=== PATIENT | female | born 1940 | race Caucasian/White ===

== ENCOUNTER → 2020-02-19 17:29 | Outpatient (CLI) | payer MEDICARE, BC, SELFPAY ==
[2020-02-19 18:45] LABS: Basophils % 0.5 % (0.1-2.0); Eosinophils # 0.5 K/mm3 (0.0-0.4); Eosinophils % 7.8 % (0.1-12.0); Hematocrit 34.5 % (37.0-47.0); Hemoglobin 10.3 g/dL (12.2-16.2); Lymphocytes # 1.2 K/mm3 (0.7-4.5); Lymphocytes % 17.3 % (10-50); Mean Corpuscular HGB Conc 29.9 g/dL (31.8-35.4); Mean Corpuscular Hemoglobin 30.5 pg (27.0-31.2); Mean Corpuscular Volume 101.9 fl (81-99); Mean Platelet Volume 9.5 fl (7.4-10.4); Monocytes # 0.8 K/mm3 (0.1-1.0); Monocytes % 11.2 % (1.7-9.3); Neutrophils # 4.3 K/mm3 (1.8-7.8); Neutrophils % 63.2 % (37.0-80.0); Platelet Count 284 K/mm3 (142-424); Red Blood Count 3.39 M/mm3 (4.20-5.40); White Blood Count 6.9 K/mm3 (4.8-10.8)
[2020-02-19 18:49] LABS: Alanine Aminotransferase 12 U/L (12-78); Albumin Level 4.2 g/dl (3.5-5.0); Albumin/Globulin Ratio 1.3 (1.1-1.8); Alkaline Phosphatase 93 U/L (38-126); Anion Gap 17.5 mEq/L (5-15); Aspartate Amino Transferase 27 U/L (14-36); Bilirubin,Total 0.2 mg/dl (0.2-1.3); Blood Urea Nitrogen 42 mg/dl (7-17); Calcium 10.1 mg/dl (8.4-10.2); Carbon Dioxide 21 mmol/L (22.0-30.0); Chloride 113 mmol/L (98-107); Chol/HDL Ratio 4.7 (1-3.5); Cholesterol 235 mg/dl (140-200); Estimated Glomerular Filt Rate 27 ml/min (>60); GFR (African American) 33 ML/MIN (>60); Globulin 3.2 g/dL (1.3-3.2); Glucose 96 mg/dl (74-100); HDL Cholesterol 50 mg/dl (40-60); Potassium 5.5 mmoL/L (3.5-5.1); Sodium 146 mmol/L (136-145); Total Protein,Serum 7.4 g/dl (6.3-8.2); Triglycerides 198 mg/dl (30-150); VLDL Cholesterol 40 mg/dL (0-40)
[2020-02-19 19:00] LABS: Direct LDL Cholesterol 128.67 mg/dL (100-129)
[2020-02-19 19:19] LABS: Thyroid Stimulating Hormone 4.57 uIU/mL (0.465-4.68)
[2020-02-21 09:13] LABS: Iron 60 ug/dL (37-170)
[2020-02-21 09:23] LABS: Total Iron Binding Capacity 317 ug/dL (265-497)
[2020-02-21 09:48] LABS: Ferritin 174 ng/ml (11.1-264)
[2020-03-01 17:03] LABS: Free Valproic Acid (Depakote) 15.6
== END ==
PROVIDERS: Visit Provider Physician Assistant
DX: E03.9 Hypothyroidism, unspecified (principal); F31.9 Bipolar disorder, unspecified; I10 Essential (primary) hypertension; W19.XXXA Unspecified fall, initial encounter; D64.9 Anemia, unspecified
CPT/HCPCS: 80053; 80061; 80165; 82728; 83540; 83550; 84443; 85025

== ENCOUNTER 2020-02-27 18:07 | Emergency (ER) | payer MEDICARE, BC, SELFPAY ==
[2020-02-27 18:08] VITALS: BP 116/64; PULSE 74; RESP 16; TEMP 36.6; O2SAT 98; BMI 22.6
--- NOTE | 2020-02-27 18:59 | XR_ITS ---
PROCEDURE: XR CHEST PORTABLE CLINICAL HISTORY: dyspnea COMPARISON: CR CXR CHEST(2 VIEWS-NOT PORTABLE) from 06/15/2012 FINDINGS: The cardiomediastinal silhouette and pulmonary vascularity are within normal limits. The lungs are clear without infiltrates, suspicious nodules, or pleural effusions. No acute bony abnormalities. IMPRESSION: No acute findings. Dictated by: Dimas Goldman MD 02/28/2020 05:17 Dimas Goldman MD in [place] 02/28/2020 05:17
--- NOTE | 2020-02-27 19:04 | HMH.EDGENADL ---
ED Disposition Clinical Impression: Urinary tract infection Qualifiers: Urinary tract infection type: acute cystitis Hematuria presence: without hematuria Qualified Code(s): N30.00 - Acute cystitis without hematuria Disposition: Home, Self-Care Condition on Discharge: Good Prescriptions: Cefdinir [Omnicef 300mg Capsule] 300 mg PO BID #20 cap Prescription Printed Referrals: PCP,No [Primary Care Provider] - - Critical Care Critical Care Time: No Attestation: On 02/27/20, the high probability of a clinically significant, sudden or life threatening deterioration of the following system(s) required my full and direct attention, intervention and personal management. The time I documented below is in addition to time spent performing reported procedures but includes the following listed in this critical care notation. Medical Decision Making - Casa Inquiry Pt receiving controlled substance: No Vital Signs: 02/27/20 18:08 Temperature 98 F Temperature Source Oral Pulse Rate [Radial] 74 Respiratory Rate 16 Blood Pressure [Right Arm] 116/64 Blood Pressure Mean [Right Arm] 81 Blood Pressure Position [Right Arm] Sitting 02 Sat by Pulse Oximetry 98 Oxygen Delivery Method Room Air - Lab Data Lab Results 02/27/20 19:28: Urine Color Yellow, Urine Appearance Clear, Urine pH 6.0, Ur Specific [place] 1.010, Urine Protein 1+, Urine Glucose (UA) Negative, Urine Ketones Negative, Urine Blood Trace-l, Urine Nitrate Positive, Urine Bilirubin Negative, Urine Urobilinogen 0.2, Ur Leukocyte Esterase 2+ A Orders (Tests/Meds): ORDERS Category Date Time Status Chest XR -- portable [XR chest portable] Stat Exams 02/27/20 18:59 Taken Urinalysis and Microscopic Stat Lab 02/27/20 19:28 Results Urine Culture Stat Micro 02/27/20 19:28 Received Medical Decision Narrative: 71-year-old female who was brought in for medical evaluation by EMS at the request of a POA who was concerned about shortness of breath. Patient on arrival seemed medically stable well-appearing and nontoxic with normal vital signs and not requiring oxygen. Due to POA's concern regarding reported shortness of breath chest x-ray will be ordered and due to anxiety and confusion regarding credit card will evaluate for urinary tract infection with a UA. General Adult HPI - General Chief complaint: Shortness of Breath/Dyspnea Stated complaint: soa Time Seen by Provider: 02/27/20 19:20 Mode of Arrival: EMS Source of Information: Patient, EMS Limitations: No Limitations Description of Symptoms (Recalled from ER Triage Doc. by RN): TO ED PER [facility] REPORT THAT [facility] CALLED BY PT'S POA FOR SOB. POA WAS TALKING TO PT ON THE PHONE AND THOUGHT SHE SOUNDED SOB. PT DENIES ANY C/O AT PRESENT. - History of Present Illness HPI narrative: 79-year-old female brought in by EMS who report that she was at home and they were called for a welfare check by her POA for suspected shortness of breath. On arrival she stated that she was feeling well and had no complaints. She did endorse some anxiety from earlier today when she was trying to find her credit card that she thought she had lost. She states she is not feeling short of breath has no chest pain and feels well with no nausea vomiting, fevers, chills, body aches. She has been tolerating oral intake without issue and staying hydrated. States that she is having no difficulty urinating or having dysuria. Denies fall of any kind. Onset (ago): unknown - Related Data Home Medications Medication Instructions Recorded Confirmed divalproex 500 mg tablet,extended 500 mg PO DAILY 02/24/20 02/27/20 release 24 hr hydrocodone 5 mg-acetaminophen 325 1 tab PO Q4-6H PRN 02/24/20 mg tablet levothyroxine 75 mcg tablet 75 mcg PO DAILY 02/24/20 02/27/20 nebivolol 5 mg tablet 5 mg PO DAILY 02/24/20 02/27/20 nifedipine 30 mg tablet,extended 30 mg PO DAILY 02/24/20 02/27/20 release ziprasidone HCl 40 mg capsule 40 m
[2020-02-27 19:29] LABS: Microscopic, Urine URINE MICROSCOPIC (MICROSCOPIC)
[2020-02-27 19:40] LABS: Appearance,Urine CLEAR (Clear); Bilirubin,Urine Negative (Negative); Blood, Urine TRACE-L (Negative); Color,Urine YELLOW (Yellow); Glucose,Urine (UA) Negative (Negative); Ketones,Urine Negative (Negative); Leukocyte Esterase,Urine 2+ (Negative); Nitrate,Urine POSITIVE (Negative); Protein,Urine 1+ (Negative); Urobilinogen,Urine 0.2 EU/dl (0.2)
[2020-02-27 20:15] LABS: Amorphous Sediment,Urine 2+ /lpf; Bacteria,Urine 4+ /lpf
[2020-02-27 20:23] VITALS: BP 131/80; PULSE 74; RESP 20; TEMP 36.7; O2SAT 96
== END 2020-02-27 20:42 | disposition home or self-care (01) ==
PROVIDERS: Emergency Provider Student in an Organized Health Care Education/Training Program
DX: N30.00 Acute cystitis without hematuria (principal); R06.02 Shortness of breath; Z87.891 Personal history of nicotine dependence
CPT/HCPCS: 36415; 71045; 80048; 81001; 87086; 87088; 87186; 99282

== ENCOUNTER → 2020-02-27 20:46 | Outpatient (CLI) | payer MEDICARE, BC, SELFPAY ==
[2020-02-27 21:05] LABS: Chloride 107 mmol/L (98-107); Potassium 4.7 mmoL/L (3.5-5.1); Sodium 138 mmol/L (136-145)
[2020-02-27 21:08] LABS: Anion Gap 14.7 mEq/L (5-15); Blood Urea Nitrogen 31 mg/dl (7-17); Calcium 9.8 mg/dl (8.4-10.2); Carbon Dioxide 21 mmol/L (22.0-30.0); Estimated Glomerular Filt Rate 24 ml/min (>60); GFR (African American) 29 ML/MIN (>60); Glucose 108 mg/dl (74-100)
== END ==
PROVIDERS: Visit Provider Physician Assistant
DX: E87.5 Hyperkalemia (principal)
CPT/HCPCS: 36415; 80048

== ENCOUNTER → 2020-08-24 14:19 | Outpatient (CLI) | payer MEDICARE, BC, SELFPAY ==
[2020-08-24 14:32] LABS: Basophils # 0.1 K/mm3 (0-0.2); Basophils % 0.9 % (0.1-2.0); Eosinophils # 0.1 K/mm3 (0.0-0.4); Eosinophils % 1.8 % (0.1-12.0); Hematocrit 38.3 % (37.0-47.0); Hemoglobin 12.6 g/dL (12.2-16.2); Lymphocytes # 1.3 K/mm3 (0.7-4.5); Lymphocytes % 20.2 % (10-50); Mean Corpuscular HGB Conc 32.8 g/dL (31.8-35.4); Mean Corpuscular Hemoglobin 31.8 pg (27.0-31.2); Mean Corpuscular Volume 96.9 fl (81-99); Mean Platelet Volume 9.8 fl (7.4-10.4); Monocytes # 0.8 K/mm3 (0.1-1.0); Monocytes % 11.8 % (1.7-9.3); Neutrophils # 4.3 K/mm3 (1.8-7.8); Neutrophils % 65.4 % (37.0-80.0); Platelet Count 243 K/mm3 (142-424); Red Blood Count 3.95 M/mm3 (4.20-5.40); White Blood Count 6.5 K/mm3 (4.8-10.8)
[2020-08-24 14:41] LABS: Alanine Aminotransferase 12 U/L (12-78); Albumin Level 4.1 g/dl (3.5-5.0); Albumin/Globulin Ratio 1.5 (1.1-1.8); Alkaline Phosphatase 77 U/L (38-126); Anion Gap 14.9 mEq/L (5-15); Aspartate Amino Transferase 21 U/L (14-36); Bilirubin,Total 0.3 mg/dl (0.2-1.3); Blood Urea Nitrogen 21 mg/dl (7-17); Calcium 9.8 mg/dl (8.4-10.2); Carbon Dioxide 21 mmol/L (22.0-30.0); Chloride 114 mmol/L (98-107); Cholesterol 216 mg/dl (140-200); Estimated Glomerular Filt Rate 31 ml/min (>60); GFR (African American) 38 ML/MIN (>60); Globulin 2.8 g/dL (1.3-3.2); Glucose 107 mg/dl (74-100); HDL Cholesterol 54 mg/dl (40-60); Potassium 4.9 mmoL/L (3.5-5.1); Sodium 145 mmol/L (136-145); Total Protein,Serum 6.9 g/dl (6.3-8.2); Triglycerides 143 mg/dl (30-150); VLDL Cholesterol 29 mg/dL (0-40)
[2020-08-24 14:52] LABS: Direct LDL Cholesterol 114.84 mg/dL (100-129)
[2020-08-24 14:58] LABS: Free T4 (Free Thyroxine) 1.53 ng/dl (0.78-2.19)
[2020-08-24 14:59] LABS: 25-OH Vitamin D, Total 43.5 ng/mL (30-100)
[2020-08-24 15:12] LABS: Thyroid Stimulating Hormone 0.33 uIU/mL (0.465-4.68)
[2020-09-12 11:33] LABS: Free Valproic Acid (Depakote) 5.5
== END ==
PROVIDERS: Visit Provider Physician Assistant
DX: E03.9 Hypothyroidism, unspecified (principal); E55.9 Vitamin D deficiency, unspecified; F31.9 Bipolar disorder, unspecified; G24.01 Drug induced subacute dyskinesia; I10 Essential (primary) hypertension
CPT/HCPCS: 80053; 80061; 80165; 82306; 84439; 84443; 85025

== ENCOUNTER 2020-12-12 10:43 | Inpatient (IN) | payer MEDICARE, SELFPAY ==
[2020-12-12] VITALS (13 sets, daily range): BP systolic 146–189; BP diastolic 68–88; PULSE 48–55; RESP 18–28; TEMP 36.6–37.2; O2SAT 92–98; BMI 20.9; BMI 19.4
--- NOTE | 2020-12-12 10:45 | ECG_ITS ---
APPROVED REPORT Exam: Resting ECG HR:55 bpm ECG Measurements Heart Rate 55 AXES WY 172 P 36 QRSd 134 QRS -8 QT 554 T -79 QTc 529 Conclusion Sinus bradycardia Right bundle branch block Marked T wave abnormality, consider inferolateral ischemia Abnormal ECG Electronically signed by : Sean Retana MD 12/13/2020 17:08:56
--- NOTE | 2020-12-12 11:01 | XR_ITS ---
PROCEDURE INFORMATION: Exam: XR Chest Exam date and time: 12/12/2020 11:01 AM Age: 80 years old Clinical indication: Shortness of breath and other: Weakness TECHNIQUE: Imaging protocol: XR of the chest. Views: 1 view. COMPARISON: CR XR CHEST PORTABLE 02/27/2020 7:11 PM FINDINGS: Lungs: Emphysema; Patchy airspace disease in the left mid lung and to a lesser degree the right middle lobe versus lung base. Pleural spaces: Unremarkable. No pleural effusion. No pneumothorax. Heart/Mediastinum: Borderline cardiomegaly Bones/joints: Unremarkable. IMPRESSION: Patchy airspace disease in the left mid lung and to a lesser degree the right middle lobe versus lung base. Covid within the differential diagnosis. Consider CT.
[2020-12-12 11:06] LABS: Influenza A, PCR Not Detected (NotDetected); Influenza B, PCR Not Detected (NotDetected)
[2020-12-12 11:27] LABS: Basophils % 0.8 % (0.1-2.0); Hematocrit 37.1 % (37.0-47.0); Hemoglobin 12.1 g/dL (12.2-16.2); Lymphocytes # 0.6 K/mm3 (0.7-4.5); Lymphocytes % 12.4 % (10-50); Mean Corpuscular HGB Conc 32.5 g/dL (31.8-35.4); Mean Corpuscular Volume 98.7 fl (81-99); Mean Platelet Volume 9.2 fl (7.4-10.4); Monocytes # 0.4 K/mm3 (0.1-1.0); Monocytes % 7.9 % (1.7-9.3); Neutrophils # 4.1 K/mm3 (1.8-7.8); Neutrophils % 78.8 % (37.0-80.0); Platelet Count 168 K/mm3 (142-424); Red Blood Count 3.76 M/mm3 (4.20-5.40); Red Cell Distribution Width 13.1 % (11.5-17.5); White Blood Count 5.2 K/mm3 (4.8-10.8)
--- NOTE | 2020-12-12 11:37 | HMH.EDWEAK ---
ED Disposition Clinical Impression: COVID-19 with pulmonary comorbidity, ADAMA (acute kidney injury), Abnormal electrocardiogram [ECG] [EKG] Hypothyroidism Qualifiers: Hypothyroidism type: acquired Qualified Code(s): E03.9 - Hypothyroidism, unspecified Disposition: Admitted As Inpatient Condition on Discharge: Fair - Critical Care Critical Care Time: No Attestation: On 12/12/20, the high probability of a clinically significant, sudden or life threatening deterioration of the following system(s) required my full and direct attention, intervention and personal management. The time I documented below is in addition to time spent performing reported procedures but includes the following listed in this critical care notation. Medical Decision Making - Medical Records Medical records reviewed: Yes: I reviewed the patient's medical records. - Casa Inquiry Pt receiving controlled substance: No Vital Signs: 12/12/20 10:44 12/12/20 11:30 Temperature 99 F Temperature Source Oral Pulse Rate 55 L Pulse Rate [Radial] 55 L Respiratory Rate 20 24 Blood Pressure 189/88 H Blood Pressure [Right Arm] 185/74 H Blood Pressure Mean 154 Blood Pressure Mean [Right Arm] 111 Blood Pressure Position [Right Arm] Sitting 02 Sat by Pulse Oximetry 96 98 Oxygen Delivery Method Nasal Cannula Nasal Cannula Oxygen Flow Rate (LPM) 3 3 - Lab Data Lab results reviewed: Yes: I reviewed the patient's lab results. Lab Results 12/12/20 10:50: SARS-CoV-2 (PCR) Detected A, Influenza A Untype (PCR) Not detected, Influenza Type B (PCR) Not detected 12/12/20 11:18: WBC 5.2, RBC 3.76 L, Hgb 12.1 L, Hct 37.1, MCV 98.7, MCH 32.0 H, MCHC 32.5, RDW 13.1, Plt Count 168, MPV 9.2, Neut % (Auto) 78.8, Lymph % (Auto) 12.4, [place] % (Auto) 7.9, Eos % (Auto) 0.0 L, Baso % (Auto) 0.8, Neut # (Auto) 4.1, Lymph # (Auto) 0.6 L, [place] # (Auto) 0.4, Eos # (Auto) 0.0, Baso # (Auto) 0.0 12/12/20 11:18: Sodium Cancelled, Potassium Cancelled, Chloride Cancelled, Carbon Dioxide Cancelled, Anion Gap Cancelled, BUN Cancelled, Creatinine Cancelled, Estimated Creat Clear Cancelled, Estimated GFR Cancelled, Est GFR ( Amer) Cancelled, Glucose Cancelled, Calcium Cancelled, Troponin I < 0.01 Result diagrams: 12/12/20 11:18 12/12/20 11:18 Orders (Tests/Meds): ED MEDICATIONS Generic Name Dose Route Start Last Admin Trade Name Freq PRN Reason Stop Dose Admin Acetaminophen 650 mg 12/12/20 12:15 Acetaminophen 325mg Tab PO 01/11/21 12:14 Q6HP PRN Mild pain,fever,headache Ascorbic Acid 500 mg 12/12/20 13:00 Ascorbic Acid 500mg Tab PO 01/11/21 12:59 QID PETE Dexamethasone Sodium Phosphate 6 mg 12/12/20 12:30 Dexamethasone 4mg/Ml 1ml Vial IV 01/11/21 12:29 DAILY PETE Enoxaparin Sodium 60 mg 12/12/20 12:30 Enoxaparin 60mg/0.6ml Syringe SQ 01/11/21 12:29 DAILY PETE Ergocalciferol 50,000 unit 12/12/20 12:15 Ergocalciferol 50,000 Units (1.25mg) Capsule PO 01/11/21 12:14 WEEKLY PETE Famotidine 20 mg 12/12/20 21:00 Famotidine 20mg Tablet PO 01/11/21 20:59 BID PETE Sodium Chloride 1,000 mls @ 100 mls/hr 12/12/20 12:15 Sod Chlor 0.9% 1000ml Bag IV 01/11/21 12:14 .Q10H PETE Zinc Sulfate 220 mg 12/12/20 12:30 Zinc Sulfate 220mg Capsule PO 01/11/21 12:29 DAILY PETE Discontinued Medications Generic Name Dose Route Start Last Admin Trade Name Freq PRN Reason Stop Dose Admin Dexamethasone Sodium Phosphate 10 mg 12/12/20 12:28 Dexamethasone 4mg/Ml 1ml Vial IV 12/12/20 12:29 ONCE ONE ORDERS Category Date Time Status Comprehensive Metabolic Panel Routine Lab 12/12/20 11:18 Received Troponin I Q3H Lab 12/12/20 14:15 Ordered Troponin I Q3H Lab 12/12/20 17:15 Ordered Sputum Culture & Gram Stain Stat Micro 12/12/20 12:16 Ordered - Radiology Data #1 Image(s): Chest Image Reviewed: Yes I have reviewed radiologist's interpretation Preliminary Fi
[2020-12-12 11:45] LABS: Coronavirus 19, PCR Detected (NotDetected)
[2020-12-12 11:51] LABS: Troponin I < 0.01 ng/ml (0.00-0.034)
[2020-12-12 13:00] LABS: Chloride 110 mmol/L (98-107)
[2020-12-12 13:01] LABS: Potassium 4.2 mmoL/L (3.5-5.1); Sodium 146 mmol/L (136-145)
[2020-12-12 13:03] LABS: Alanine Aminotransferase 17 U/L (12-78); Alkaline Phosphatase 68 U/L (38-126); Anion Gap 21.2 mEq/L (5-15); Aspartate Amino Transferase 45 U/L (14-36); Bilirubin,Total 0.2 mg/dl (0.2-1.3); Blood Urea Nitrogen 41 mg/dl (7-17); Carbon Dioxide 19 mmol/L (22.0-30.0); Creatinine Clearance Estimated 19 mL/min (50-200); Estimated Glomerular Filt Rate 26 ml/min (>60); GFR (African American) 31 ML/MIN (>60)
[2020-12-12 13:04] LABS: Albumin Level 3.7 g/dl (3.5-5.0); Albumin/Globulin Ratio 1.2 (1.1-1.8); Calcium 8.9 mg/dl (8.4-10.2); Globulin 3.2 g/dL (1.3-3.2); Glucose 84 mg/dl (74-100); Total Protein,Serum 6.9 g/dl (6.3-8.2)
--- NOTE | 2020-12-12 13:23 | HMH.HP ---
*Admission Date: 12/12/20 *Chief complaint: sob *History of present illness: this patient presented to the ed by ems with cough and progressive weakness with dec po intake and dec adl/iadl-pt with positive covis with abn cxr and required o2 and had sig abn ekg - pt was discussed with card and admitted for eval and treatment [facility] History I have reviewed the patient's past medical history: Yes Medical History: Reports:: Hyperlipidemia, Hypertension *Have you ever received a pneumonia vaccine?: Yes *Have you received a flu vaccine this season?: Yes Other Medical History: Reports: Arthritis, Thyroid Disease Other Surgeries: Yes: No Previous Surgery, Hysterectomy-Partial, Other - *Social History Smoking Status: Former smoker Alcohol Intake: never Substance Use Type: denies use *Occupational Status:: retired Housing: house *Travel in the last 8 weeks: None Family Hx:: Cancer, Stroke Review of Systems - Review of Systems Review of systems:: pertinent systems reviewed and negative unless documented below - Constitutional Reports weakness, Denies fever(s) - Eyes Denies change in vision - ENT Denies headache(s), Denies sore throat - *Cardiovascular Reports shortness of breath, Denies chest pain - *Respiratory Reports cough - *Gastrointestinal Denies abdominal pain - *Genitourinary Denies blood in urine - *Musculoskeletal Denies joint pain - Integumentary/Breasts Denies rash - *Neurologic Reports weakness, Denies localized weakness, Denies seizure-like activity - Psychiatric Denies confusion Meds Home Medications Medication Instructions Recorded Confirmed Type divalproex 500 mg tablet,extended 500 mg PO DAILY #90 tab 12/01/20 12/12/20 Rx release 24 hr nifedipine 30 mg tablet,extended 30 mg PO DAILY #90 tab 12/01/20 12/12/20 Rx release pravastatin 40 mg tablet 40 mg PO HS #90 tab 12/01/20 12/12/20 Rx ziprasidone HCl 40 mg capsule 40 mg PO DAILY #90 cap 12/01/20 12/12/20 Rx Levothyroxine Sodium [Synthroid 75 mcg PO AMLAB 12/12/20 12/13/20 History 75mcg (0.075mg) tablet] Nebivolol HCl [Bystolic] 10 mg PO DAILY 12/12/20 12/12/20 History Allergies Allergy/AdvReac Type Severity Reaction Status Date / Time IODINE Allergy Unknown Uncoded 12/01/20 09:36 Exam Vital signs and Labs for Last 24 Hours: Temp Pulse Resp BP Pulse Ox 99 F 55 L 24 189/88 H 98 12/12/20 10:44 12/12/20 11:30 12/12/20 11:30 12/12/20 11:30 12/12/20 11:30 Laboratory Results - last 24 hr 12/12/20 10:50: SARS-CoV-2 (PCR) Detected A, Influenza A Untype (PCR) Not detected, Influenza Type B (PCR) Not detected 12/12/20 11:18: WBC 5.2, RBC 3.76 L, Hgb 12.1 L, Hct 37.1, MCV 98.7, MCH 32.0 H, MCHC 32.5, RDW 13.1, Plt Count 168, MPV 9.2, Neut % (Auto) 78.8, Lymph % (Auto) 12.4, [place] % (Auto) 7.9, Eos % (Auto) 0.0 L, Baso % (Auto) 0.8, Neut # (Auto) 4.1, Lymph # (Auto) 0.6 L, [place] # (Auto) 0.4, Eos # (Auto) 0.0, Baso # (Auto) 0.0 12/12/20 11:18: Sodium Cancelled, Potassium Cancelled, Chloride Cancelled, Carbon Dioxide Cancelled, Anion Gap Cancelled, BUN Cancelled, Creatinine Cancelled, Estimated Creat Clear Cancelled, Estimated GFR Cancelled, Est GFR ( Amer) Cancelled, Glucose Cancelled, Calcium Cancelled, Troponin I < 0.01 12/12/20 11:18: Sodium 146 H, Potassium 4.2, Chloride 110 H, Carbon Dioxide 19 L, Anion Gap 21.2 H, BUN 41 H, Creatinine 1.90 H, Estimated Creat Clear 19, Estimated GFR 26 L, Est GFR ( Amer) 31 L, Glucose 84, Calcium 8.9, Total Bilirubin 0.2, AST 45 H, ALT 17, Alkaline Phosphatase 68, Total Protein 6.9, Albumin 3.7, Globulin 3.2, Albumin/Globulin Ratio 1.2 I & O for Last 24 hours: Intake & Output 12/10/20 12/11/20 12/12/20 12/13/20 11:59 11:59 11:59 11:59 Weight 111 lb - Constitutional no acute distress, thin - *Routine HEENT Exam Head: Present: normocephalic Eye: Present: EOMI, PERRL ENT: Present: mucous membranes dry - *Routine Neck Exam Present: supple
[2020-12-12 14:04] LABS: T4 (Thyroxine) 10.8 ug/dl (5.53-11.0)
[2020-12-12 14:18] LABS: Thyroid Stimulating Hormone 0.66 uIU/mL (0.465-4.68)
--- NOTE | 2020-12-12 14:27 | PC.NURSE ---
REPORT CALLED TO FLOOR
--- NOTE | 2020-12-12 15:06 | HMH.PHAVTE ---
[facility] Pharmacy VTE Monitoring - Patient Demographics Admission date: 12/12/20 Report Date: 12/12/20 Time: 15:07 Allergies/Adverse Reactions: Patient Allergies IODINE Allergy (Unknown, Uncoded 12/01/20 09:36) Height: 1.55 m Weight: 50.349 kg Patient Problems: Current Active Problems COVID-19 with pulmonary comorbidity (Acute) ADAMA (acute kidney injury) (Acute) Abnormal electrocardiogram [ECG] [EKG] (Acute) Hypothyroidism (Chronic) - VTE Risk Labs: VTE Related Lab Results Hgb 12.1 g/dL (12.2-16.2) L 12/12/20 11:18 Hct 37.1 % (37.0-47.0) 12/12/20 11:18 Plt Count 168 K/mm3 (142-424) 12/12/20 11:18 BUN 41 mg/dl (7-17) H 12/12/20 11:18 BUN Cancelled 12/12/20 11:18 Creatinine 1.90 mg/dl (0.52-1.04) H 12/12/20 11:18 Creatinine Cancelled 12/12/20 11:18 Estimated Creat Clear 19 mL/min (50-200) 12/12/20 11:18 Estimated Creat Clear Cancelled 12/12/20 11:18 Was VTE Risk Assessment Performed: No Clinical Trial Participant: No - Prophylaxis VTE Prophylaxis Ordered?: Yes Types of VTE Prophylaxis: TEDS Knee High, Pharmacological Pharmacologic Type: Enoxaparin
[2020-12-12 16:00] LABS: Troponin I < 0.01 ng/ml (0.00-0.034)
[2020-12-12 18:28] LABS: Troponin I 0.02 ng/ml (0.00-0.034)
[2020-12-13] VITALS: BP 148/62; PULSE 52; RESP 18; TEMP 36.6; O2SAT 92
--- NOTE | 2020-12-13 03:18 | PC.NURSE ---
Patient is A&Ox4. She has had no complaints expressed this shift. Patient has maintained oxygen saturation maintaining 90-94% on 2LNC. Patient's lung sounds are clear but diminished. She has rested comfortably. VSS, call light within reach, will continue to monitor.
[2020-12-13 04:00] VITALS: BP 130/66; PULSE 72; RESP 19; TEMP 36.6; O2SAT 96
[2020-12-13 05:00] VITALS: BMI 19.4
[2020-12-13 06:57] LABS: Chloride 113 mmol/L (98-107); Potassium 3.9 mmoL/L (3.5-5.1); Sodium 142 mmol/L (136-145)
[2020-12-13 07:00] LABS: Anion Gap 15.9 mEq/L (5-15); Blood Urea Nitrogen 47 mg/dl (7-17); Calcium 8.2 mg/dl (8.4-10.2); Carbon Dioxide 17 mmol/L (22.0-30.0); Creatinine Clearance Estimated 21 mL/min (50-200); Estimated Glomerular Filt Rate 31 ml/min (>60); GFR (African American) 38 ML/MIN (>60); Glucose 141 mg/dl (74-100)
[2020-12-13 07:03] LABS: Lymphocytes # 0.7 K/mm3 (0.7-4.5); Mean Corpuscular HGB Conc 32.3 g/dL (31.8-35.4); Monocytes # 0.4 K/mm3 (0.1-1.0)
[2020-12-13 07:13] LABS: Basophils % 0.4 % (0.1-2.0); Hematocrit 33.9 % (37.0-47.0); Lymphocytes % 13.6 % (10-50); Mean Corpuscular Volume 99.1 fl (81-99); Mean Platelet Volume 9.7 fl (7.4-10.4); Monocytes % 7.1 % (1.7-9.3); Platelet Count 173 K/mm3 (142-424); Red Blood Count 3.42 M/mm3 (4.20-5.40); Red Cell Distribution Width 12.9 % (11.5-17.5)
[2020-12-13 08:00] VITALS: BP 130/70; PULSE 50; RESP 20; TEMP 36.5; O2SAT 93; O2SAT 94
[2020-12-13 12:00] VITALS: BP 147/78; PULSE 55; RESP 22; TEMP 36.7; O2SAT 95
--- NOTE | 2020-12-13 12:54 | HMH.PHAINT ---
MEDICATION RECONCILIATION COMPLETE USING LIST FROM MOST RECENT MD OFFICE VISIT.
--- NOTE | 2020-12-13 13:22 | P.PN_ITS ---
Internal Medicine - PN: Subj *Date: 12/14/20 *Time: 00:46 Interval history: doing better still on o2 - no chest pain Exam Vital signs and Labs for Last 24 Hours: Temp Pulse Resp BP Pulse Ox 98.0 F 55 L 22 147/78 H 95 12/13/20 12:00 12/13/20 12:00 12/13/20 12:00 12/13/20 12:00 12/13/20 12:00 Laboratory Results - last 24 hr 12/12/20 11:18: TSH 0.66, Thyroxine (T4) 10.8 12/12/20 14:30: Troponin I < 0.01 12/12/20 17:35: Troponin I 0.02 12/13/20 06:17: WBC 5.0, RBC 3.42 L, Hgb 11.0 L, Hct 33.9 L, MCV 99.1 H, MCH 32.0 H, MCHC 32.3, RDW 12.9, Plt Count 173, MPV 9.7, Neut % (Auto) 79.0, Lymph % (Auto) 13.6, [place] % (Auto) 7.1, Eos % (Auto) 0.0 L, Baso % (Auto) 0.4, Neut # (Auto) 4.0, Lymph # (Auto) 0.7, [place] # (Auto) 0.4, Eos # (Auto) 0.0, Baso # (Auto) 0.0 12/13/20 06:17: Sodium 142, Potassium 3.9, Chloride 113 H, Carbon Dioxide 17 L, Anion Gap 15.9 H, BUN 47 H, Creatinine 1.60 H, Estimated Creat Clear 21, Estimated GFR 31 L, Est GFR ( Amer) 38 L D, Glucose 141 H D, Calcium 8.2 L, Magnesium 2.0 I & O for Last 24 hours: Intake & Output 12/11/20 12/12/20 12/13/20 12/14/20 11:59 11:59 11:59 11:59 Intake Total 656 / 656 Output Total Balance 655 / 655 Weight 111 lb 103 lb 1 oz - Constitutional no acute distress - *Routine HEENT Exam Head: Present: normocephalic Eye: Present: EOMI, PERRL ENT: Present: mucous membranes dry - *Routine Neck Exam Present: supple - *Routine Respiratory Exam Present: CTA bilaterally - *Routine Cardiovascular Exam Present: RRR, murmur - *Routine Abdominal Exam Present: soft - *Routine Extremities Exam Absent: calf tenderness - *Routine Skin Exam Present: intact - *Routine Neurological Exam Present: alert - Routine Psychiatric Exam Present: normal affect
[2020-12-13 15:50] VITALS: BP 158/77; PULSE 53; RESP 22; TEMP 36.8; O2SAT 94
--- NOTE | 2020-12-13 18:56 | PC.NURSE ---
SHE IS AOX4, 2LNC FOR O2 SUPPORT. VSS
[2020-12-13 20:00] VITALS: BP 166/86; PULSE 55; RESP 18; TEMP 36.6; O2SAT 94
[2020-12-14] VITALS: BP 160/76; PULSE 54; RESP 18; TEMP 36.7; O2SAT 93
[2020-12-14 04:00] VITALS: BP 150/64; PULSE 79; RESP 18; TEMP 36.6; O2SAT 96
--- NOTE | 2020-12-14 04:19 | PC.NURSE ---
Patient is A&Ox4. Patient requires 2LNC. Patient respiratory status has not changed. She has remained afebrile this shift. She requires a standby assist to the bedside commode. No acute changes this shift. VSS, call light within reach, will continue to monitor.
[2020-12-14 05:00] VITALS: BMI 19.4
[2020-12-14 08:00] VITALS: BP 157/79; PULSE 53; RESP 18; TEMP 36.9; O2SAT 93; O2SAT 94
--- NOTE | 2020-12-14 08:00 | CA_ITS ---
APPROVED REPORT EXAM: Comprehensive 2D, Doppler, and color-flow Echocardiogram Radiagraph Operator: Brenna Liu CRT Ht: 5 ft 1 in Wt: 103lbs BSA: 1.42 BP: 138/59 mmHg Indications: Hyperlipidemia, Hypertension/HDD, covid 2D Dimensions LVOT 1.82 cm (M/F) 1.5-2.5 LA Volume 26.90 mL LA Volume Index 18.90 mL/m2 (M/F) 16-34 M-Mode Dimensions RVDd 1.95 cm (0.9-2.6) LA Diam 3.46 cm (1.9-4.0) LVDd 4.89 cm (3.5-5.7) Ao Diam 3.98 cm (2.0-3.7) LVDs 2.68 cm (3.5-5.7) IVSd 1.69 cm (0.6-1.1) PWd 0.67 cm (0.6-1.1) EF (Teich) 76.40% FS 45.20% EDV (Teich) 112.30 mL TAPSE 1.94 (<1.7) ESV (Teich) 26.50 mL LV Diastology E Decel Time 450.00 (160-240 msec) E/A Ratio 0.69 MED E' 6.80 (< 7 cm/sec) MED A' 9.30 cm/s E'/MED E' Ratio 9.97 (>14) LAT E' 6.00 (<10 cm/sec) LAT A' 12.30 cm/s E/LAT E' Ratio 11.30 (>14) Aortic Valve AI PHT 813.00 ms AO Peak GR. 8.00 mmHg Mitral Valve MV A Velocity 98.00 (40-130 cm/s) E/A Ratio 0.69 MV Decel. Time 450.00 (160-240 ms) Pulmonary Valve PV Peak Velocity 100.00 (50-150 cm/s) Tricuspid Valve TR P. Velocity 220.00 cm/s RAP Estimate 10.00 mmHg RVSP 29.40 mmHg Left Ventricle Left atrium is mildly enlarged, left ventricle is normal size, mild concentric left ventricular hypertrophy, visually estimated ejection fraction 55% with no regional wall motion abnormality, grade 1 diastolic dysfunction seen without tissue Doppler evidence of raise left atrial pressure. Right Ventricle Right atrium and right ventricle are normal size and contractility. Aortic Valve Aortic valve is thickened and calcified without aortic stenosis, there is mild aortic insufficiency. Mitral Valve Mitral valve is grossly normal, there is mild mitral regurgitation. Tricuspid Valve Tricuspid grossly normal, there is trace tricuspid regurgitation, tricuspid regurgitation jet velocity is inadequate for calculation of the right ventricular systolic pressure. Pulmonic Valve Pulmonic valve is poorly visualized. Great Vessels Aortic root is normal size. Pericardium No significant pericardial effusion noted. Conclusion 1. Mildly enlarged left atrium, normal left ventricular size, mild concentric left ventricular hypertrophy, visually estimated ejection fraction 55% with no regional wall motion abnormality, grade 1 diastolic dysfunction seen without tissue Doppler evidence of raise left atrial pressure. 2. Mild aortic, mild mitral and tricuspid regurgitation. 3. No significant pericardial effusion noted. Electronically signed by : Evaristo Sharma MD 12/15/2020 07:22:35
[2020-12-14 09:52] VITALS: BMI 19.5
--- NOTE | 2020-12-14 10:10 | PC.NURSE ---
Pt RA sats 94% and pt tolerated well. nc removed. Pt denies s/s respiratory distress.
--- NOTE | 2020-12-14 10:57 | HMH.PULMCON ---
*Admission Date: 12/12/20 *Reason for consult:: COVID-19 pneumonia *History of present illness: Ms. Marquez is a 80-year-old female, no prior respiratory complaints never smoker presented to hospital with worsening of shortness of breath chest congestion for the last 4 days and found to be COVID-19 positive patient is staying alone with a friend that helps with her activities of daily living and she admits sick contact last week. Patient so far admit significant improvement in her symptoms. [facility] History Medical History: Reports:: Hyperlipidemia, Hypertension Denies:: Diabetes Mellitus Type 1, Diabetes Mellitus Type 2 *Have you ever received a pneumonia vaccine?: No *Have you received a flu vaccine this season?: No Other Medical History: Reports: Arthritis, Hypothyroidism, Thyroid Disease Other Surgeries: Yes: No Previous Surgery, Hysterectomy-Partial, Other Amputation: No - *Social History Smoking Status: Former smoker Alcohol Intake: never Substance Use Type: denies use *Occupational Status:: retired Housing: house Household Members: none *Travel in the last 8 weeks: None Family Hx:: Cancer, Hypertension ROS - Cons Reports body ache(s), Reports fatigue - ENT Reports abnormal hearing - Card Reports shortness of breath, Reports shortness of breath with activity - Resp Respiratory: Reports shortness of breath, Reports chest congestion, Reports cough, Reports non-productive cough - GI Gastrointestingal: Denies: abdominal pain - Psych Reports abnormal sleep pattern Meds Home Medications Medication Instructions Recorded Confirmed Type divalproex 500 mg tablet,extended 500 mg PO DAILY #90 tab 12/01/20 12/12/20 Rx release 24 hr nifedipine 30 mg tablet,extended 30 mg PO DAILY #90 tab 12/01/20 12/12/20 Rx release pravastatin 40 mg tablet 40 mg PO HS #90 tab 12/01/20 12/12/20 Rx ziprasidone HCl 40 mg capsule 40 mg PO DAILY #90 cap 12/01/20 12/12/20 Rx Levothyroxine Sodium [Synthroid 75 mcg PO DAILY 12/12/20 12/14/20 History 75mcg (0.075mg) tablet] Nebivolol HCl [Bystolic] 10 mg PO DAILY 12/12/20 12/12/20 History Allergies Allergy/AdvReac Type Severity Reaction Status Date / Time IODINE Allergy Unknown Uncoded 12/01/20 09:36 Exam - Constitutional Constitutional:: Present: no acute distress, comfortable - HENMT Exam HENMT: Present: normocephalic, atraumatic - Eye Exam Eyes:: Present: normal appearance both eyes and related structures - Neck Exam Neck:: Present: normal visual inspection - Respiratory Exam Respiratory:: Present: able to speak in complete sentences, crackles. Absent: wheezing - Cardiovascular Exam Cardiac:: Present: S1, S2 - GI Exam GI:: Present: soft - Skin Exam Skin: Present: warm, no rash - Neurological Exam Neurological: Present: alert, awake, normal cognition - Extremities Exam Extremities: Present: no cyanosis, no clubbing, no edema Internal Medicine - CN: Reslt - Labs CBC & Chem 7: 12/13/20 06:17 12/13/20 06:17 Assessment and Plan - Assessment and plan all Dx Assessment and Plan for all problems:: #COVID-19 pneumonia: 80-year-old female no prior respiratory complaints, unvaccinated for COVID-19 pneumonia recent sick contact present with worsening respiratory symptoms, and found to be COVID-19 positive. Patient on examination does not appear to be any severe respiratory saturation on room air saturating 89 to 91%. Patient was initially dexamethasone admission. She is having ADAMA and she was not started on remdesivir. Plan: Given patient not needing any oxygen supplementation,unable to receive remdesivir at this point will discontinue dexamethasone, will proceed with antibody cocktail Initiate doxycycline for a total of 5 days D-dimer CRP and ferritin Combivent every 6 hours as needed #Thank you for involving pulmonary in this patient care. We will continue to follow.
--- NOTE | 2020-12-14 11:02 | HMH.CNCARD ---
History of Present Illness Consult date: 12/14/20 Requesting physician: Camilo Jenkins Chief complaint: I have a cold History of present illness: This is a 80-year-old white female who presented to the emergency department with complaints of I have a cold for approximately 2 weeks. The patient reports that she was increasingly more weak and fatigued and had a cough associated with her cold. The patient denies any chest pain or pressure. She denies any shortness of breath or edema. She denies any fever, chills, nausea, vomiting, diarrhea, PND or orthopnea. The patient does report falling about 1 to 2 days prior to admission because of weakness and fatigue but denied any injury. The patient was found to have COVID-19 and admitted to the hospital secondary to the COVID-19, weakness and cough. As mentioned before she denies any chest pain or pressure. She ruled out for an [place]. She does have an abnormal EKG with no history of coronary artery disease per the patient's report. [facility] History I have reviewed the patient's past medical history: Yes Medical History: Reports:: Hyperlipidemia, Hypertension Denies:: Diabetes Mellitus Type 1, Diabetes Mellitus Type 2 *Have you ever received a pneumonia vaccine?: No *Have you received a flu vaccine this season?: No Other Medical History: Reports: Arthritis, Hypothyroidism, Thyroid Disease Other Surgeries: Yes: No Previous Surgery, Hysterectomy-Partial, Other Amputation: No - *Social History Smoking Status: Former smoker Alcohol Intake: never Substance Use Type: denies use *Occupational Status:: retired Housing: house Household Members: none *Travel in the last 8 weeks: None Family Hx:: Cancer, Hypertension Meds Home Medications Medication Instructions Recorded Confirmed Type divalproex 500 mg tablet,extended 500 mg PO DAILY #90 tab 12/01/20 12/12/20 Rx release 24 hr nifedipine 30 mg tablet,extended 30 mg PO DAILY #90 tab 12/01/20 12/12/20 Rx release pravastatin 40 mg tablet 40 mg PO HS #90 tab 12/01/20 12/12/20 Rx ziprasidone HCl 40 mg capsule 40 mg PO DAILY #90 cap 12/01/20 12/12/20 Rx Levothyroxine Sodium [Synthroid 75 mcg PO DAILY 12/12/20 12/14/20 History 75mcg (0.075mg) tablet] Nebivolol HCl [Bystolic] 10 mg PO DAILY 12/12/20 12/12/20 History Allergies Allergy/AdvReac Type Severity Reaction Status Date / Time IODINE Allergy Unknown Uncoded 12/01/20 09:36 Exam Vital signs and Labs for Last 24 Hours: Temp Pulse Resp BP Pulse Ox 98.4 F 53 L 18 157/79 H 94 L 12/14/20 08:00 12/14/20 08:00 12/14/20 08:00 12/14/20 08:00 12/14/20 08:00 I & O for Last 24 hours: Intake & Output 12/11/20 12/12/20 12/13/20 12/14/20 23:59 23:59 23:59 23:59 Intake Total 490 / 490 1246 / 1246 360 / 360 Output Total Balance 489 / 489 1246 / 1246 360 / 360 Weight 103 lb 1 oz 103 lb 1 oz 103 lb 9.876 oz Narrative: EKG is sinus rhythm with a rate of 55, right bundle branch block and inferior lateral T wave abnormalities as well as Q waves throughout her EKG inferior laterally. - Constitutional no acute distress, average body habitus - *Routine HEENT Exam Head: Present: normocephalic, atraumatic Eye: Present: EOMI, PERRL ENT: Present: mucous membranes moist - *Routine Neck Exam Present: supple, full ROM, normal carotid upstroke. Absent: JVD, carotid bruit, lymphadenopathy - *Routine Respiratory Exam Present: CTA bilaterally - *Routine Cardiovascular Exam Present: RRR, Normal S1, Normal S2, murmur - *Routine Abdominal Exam Present: soft, normoactive bowel sounds. Absent: tenderness, distended - *Routine Extremities Exam Present: full ROM, pulses intact, normal capillary refill. Absent: cyanosis, clubbing, edema - *Routine Skin Exam Present: intact, warm. Absent: erythema, rash - *Routine Neurological Exam Present: alert, oriented X3, CN II-XII intact. Absent: sensory deficit, motor deficit - Routine Psychiatric Exam P
[2020-12-14 12:00] VITALS: BP 139/65; PULSE 58; RESP 18; TEMP 36.6; O2SAT 92
[2020-12-14 12:06] LABS: Microscopic, Urine URINE MICROSCOPIC (MICROSCOPIC)
[2020-12-14 12:40] LABS: D-Dimer 0.99 ug/mL (0.0-0.5)
[2020-12-14 12:42] LABS: Appearance,Urine SL CLOUDY (Clear); Bilirubin,Urine Negative (Negative); Blood, Urine Negative (Negative); Color,Urine YELLOW (Yellow); Glucose,Urine (UA) Negative (Negative); Ketones,Urine Negative (Negative); Leukocyte Esterase,Urine Negative (Negative); Nitrate,Urine Negative (Negative); Protein,Urine 1+ (Negative); Specific Gravity, Urine 1.015 (1.005-1.030); Urobilinogen,Urine 0.2 EU/dl (0.2)
[2020-12-14 12:42] LABS: C-Reactive Protein 37.2 mg/L (0-4)
[2020-12-14 12:53] LABS: Bacteria,Urine Trace /lpf; Squamous Epithelial Cell,Urine Occasional #/hpf (0-5); Transitional Epi Cells,Urine OCC #/lpf (0-3)
--- NOTE | 2020-12-14 13:08 | HMH.ACPN2 ---
Internal Medicine - PN: Subj *Date: 12/14/20 *Time: 13:08 Interval history: doing better this am - have seen cardio and pulmonary consults Exam Vital signs and Labs for Last 24 Hours: Temp Pulse Resp BP Pulse Ox 97.9 F 58 L 18 139/65 92 L 12/14/20 12:00 12/14/20 12:00 12/14/20 12:00 12/14/20 12:00 12/14/20 12:00 Laboratory Results - last 24 hr 12/12/20 12:00: Urine Color Yellow, Urine Appearance Sl cloudy, Urine pH 6.0, Ur Specific [place] 1.015, Urine Protein 1+, Urine Glucose (UA) Negative, Urine Ketones Negative, Urine Blood Negative, Urine Nitrate Negative, Urine Bilirubin Negative, Urine Urobilinogen 0.2, Ur Leukocyte Esterase Negative, Urine RBC None, Urine WBC None, Ur Squamous Epith Cells Occasional, Ur Transition Epith Cell Occ, Urine Bacteria Trace 12/14/20 12:05: D-Dimer 0.99 H 12/14/20 12:05: C-Reactive Protein 37.2 H I & O for Last 24 hours: Intake & Output 12/12/20 12/13/20 12/14/20 12/15/20 11:59 11:59 11:59 11:59 Intake Total 656 / 656 1440 / 1440 Output Total Balance 655 / 655 1440 / 1440 Weight 111 lb 103 lb 1 oz 103 lb 9.876 oz - Constitutional no acute distress - *Routine HEENT Exam Head: Present: normocephalic Eye: Present: EOMI, PERRL ENT: Present: mucous membranes dry - *Routine Neck Exam Absent: JVD - *Routine Respiratory Exam Present: decreased breath sounds - *Routine Cardiovascular Exam Present: RRR, murmur, S4 - *Routine Abdominal Exam Present: soft - *Routine Extremities Exam Absent: calf tenderness - *Routine Skin Exam Present: intact - *Routine Neurological Exam Present: alert, CN II-XII intact - Routine Psychiatric Exam Present: normal affect Assessment and Plan (1) COVID-19 Status: Acute Category: Medical Code(s): U07.1 - COVID-19 (2) Hyperlipidemia Status: Chronic Qualifiers: Hyperlipidemia type: unspecified Qualified Code(s): E78.5 - Hyperlipidemia, unspecified Category: Medical Code(s): E78.5 - Hyperlipidemia, unspecified (3) Abnormal EKG Status: Acute Category: Medical Code(s): R94.31 - Abnormal electrocardiogram [ECG] [EKG] (4) Bipolar disorder Status: Chronic Qualifiers: Active/Remission status: currently active Current bipolar episode type: mixed Current episode severity: moderate Qualified Code(s): F31.62 - Bipolar disorder, current episode mixed, moderate Category: Medical Code(s): F31.9 - Bipolar disorder, unspecified (5) Hypertension Status: Chronic Qualifiers: Hypertension type: primary hypertension Qualified Code(s): I10 - Essential (primary) hypertension Category: Medical Code(s): I10 - Essential (primary) hypertension
[2020-12-14 13:14] LABS: Ferritin 725 ng/ml (11.1-264)
[2020-12-14 16:00] VITALS: BP 147/87; PULSE 59; RESP 18; TEMP 36.9; O2SAT 93
--- NOTE | 2020-12-14 17:30 | PC.NURSE ---
PT IS RESTING IN BED. NO COMPLAINTS OF DISCOMFORT. O2 SATURATION HAS MAINTAINED 90-94% ON ROOM AIR. VSS. WILL CONTINUE TO MONITOR.
[2020-12-14 18:27] LABS: Adenovirus F 40/41, stool Not Detected (NotDetected); Astrovirus Not Detected (NotDetected); Campylobacter Not Detected (NotDetected); Clostridium Difficile A/B, PCR Not Detected (NotDetected); Cryptosporidium Not Detected (NotDetected); Cyclospora Cayetanesis Not Detected (NotDetected); Entamoeba histolytica Not Detected (NotDetected); Enteroaggregative E coli Not Detected (NotDetected); Enteropathogenic E coli Not Detected (NotDetected); Enterotoxigenic E coli Not Detected (NotDetected); Giardia lamblia Not Detected (NotDetected); Norovirus Not Detected (NotDetected); Plesimonas Shigalloides, PCR Not Detected (NotDetected); Rotavirus A Not Detected (NotDetected); Salmonella, PCR Not Detected (NotDetected); Sapovirus Not Detected (NotDetected); Shiga-like toxin E coli Not Detected (NotDetected); Shigella Enterovasive E coli Not Detected (NotDetected); Vibrio Cholerae Not Detected (NotDetected); Vibrio, PCR Not Detected (NotDetected); Yersinia Entercolitica, PCR Not Detected (NotDetected)
[2020-12-14 20:00] VITALS: BP 141/71; PULSE 57; RESP 18; TEMP 36.7; O2SAT 94
[2020-12-15] VITALS: BP 149/83; PULSE 59; RESP 18; TEMP 36.9; O2SAT 91
[2020-12-15 04:00] VITALS: BP 148/69; PULSE 55; RESP 16; TEMP 36.6
[2020-12-15 05:00] VITALS: BMI 19.4
[2020-12-15 06:10] LABS: Chloride 97 mmol/L (98-107); Sodium 140 mmol/L (136-145)
[2020-12-15 06:12] LABS: Blood Urea Nitrogen 17 mg/dl (7-17); Creatinine Clearance Estimated 34 mL/min (50-200); Estimated Glomerular Filt Rate 119 ml/min (>60); GFR (African American) 144 ML/MIN (>60)
[2020-12-15 06:13] LABS: Calcium 9.2 mg/dl (8.4-10.2); Carbon Dioxide 35 mmol/L (22.0-30.0); Chol/HDL Ratio 3.9 (1-3.5); Cholesterol 232 mg/dl (140-200); Glucose 91 mg/dl (74-100); HDL Cholesterol 59 mg/dl (40-60); Triglycerides 124 mg/dl (30-150); VLDL Cholesterol 25 mg/dL (0-40)
[2020-12-15 06:23] LABS: Basophils # 0.1 K/mm3 (0-0.2); Basophils % 0.4 % (0.1-2.0); Hematocrit 50.1 % (37.0-47.0); Hemoglobin 16.6 g/dL (12.2-16.2); Lymphocytes % 49.5 % (10-50); Mean Corpuscular HGB Conc 33.2 g/dL (31.8-35.4); Mean Corpuscular Hemoglobin 30.4 pg (27.0-31.2); Mean Corpuscular Volume 91.6 fl (81-99); Mean Platelet Volume 8.8 fl (7.4-10.4); Monocytes # 0.7 K/mm3 (0.1-1.0); Monocytes % 5.5 % (1.7-9.3); Neutrophils # 5.4 K/mm3 (1.8-7.8); Neutrophils % 44.5 % (37.0-80.0); Platelet Count 221 K/mm3 (142-424); Red Blood Count 5.47 M/mm3 (4.20-5.40); Red Cell Distribution Width 14.1 % (11.5-17.5); White Blood Count 12.1 K/mm3 (4.8-10.8)
--- NOTE | 2020-12-15 06:40 | PC.NURSE ---
Patient had an uneventful night this shift. No s/s of acute distress noted, call light within reach, bed at lowest level for safety; will continue to monitor.
[2020-12-15 08:00] VITALS: BP 172/80; PULSE 56; RESP 16; TEMP 36.6; O2SAT 90
--- NOTE | 2020-12-15 11:30 | HMH.PULMPN ---
Internal Medicine - PN: Subj *Date: 12/15/20 *Time: 11:30 Interval history: No acute respiratory vents overnight. Patient continued to remain on room air. Exam - Constitutional Constitutional:: Present: no acute distress, comfortable - HENMT Exam HENMT: Present: normocephalic, moist mucous membranes - Eye Exam Eyes:: Present: normal appearance both eyes and related structures - Neck Exam Neck:: Present: normal visual inspection - Respiratory Exam Respiratory:: Present: able to speak in complete sentences, no respiratory distress, crackles - Cardiovascular Exam Cardiac:: Present: S1, S2 - GI Exam GI:: Present: soft - Skin Exam Skin: Present: warm, no rash, dry - Neurological Exam Neurological: Present: alert, awake - Extremities Exam Extremities: Present: no cyanosis, no clubbing, no edema Assessment and Plan (1) COVID-19 Status: Acute Category: Medical Code(s): U07.1 - COVID-19 (2) Hyperlipidemia Status: Chronic Qualifiers: Hyperlipidemia type: unspecified Qualified Code(s): E78.5 - Hyperlipidemia, unspecified Category: Medical Code(s): E78.5 - Hyperlipidemia, unspecified (3) Abnormal EKG Status: Acute Category: Medical Code(s): R94.31 - Abnormal electrocardiogram [ECG] [EKG] (4) Bipolar disorder Status: Chronic Qualifiers: Active/Remission status: currently active Current bipolar episode type: mixed Current episode severity: moderate Qualified Code(s): F31.62 - Bipolar disorder, current episode mixed, moderate Category: Medical Code(s): F31.9 - Bipolar disorder, unspecified (5) Hypertension Status: Chronic Qualifiers: Hypertension type: primary hypertension Qualified Code(s): I10 - Essential (primary) hypertension Category: Medical Code(s): I10 - Essential (primary) hypertension - Assessment and plan all Dx Assessment and Plan for all problems:: #COVID-19 pneumonia: 80-year-old female no prior respiratory complaints, unvaccinated for COVID-19 pneumonia recent sick contact present with worsening respiratory symptoms, and found to be COVID-19 positive. Given the patient presentation oxygen supplementation in the ER she remained on room air throughout his hospital course saturations maintained greater than 89% on this morning patient saturating 93% on room air. D-dimer elevated 0.9 and however patient does not appear to be any respiratory distress and does not having any tachycardia or lower extremity swelling or pain. CRP elevated at 37.2 and ferritin at 725. Hypokalemia noted, managed by primary team Plan: Given patient not needing any oxygen supplementation will proceed with Regen CoV Continue doxycycline for a total of 5 days Combivent every 6 hours as needed #Thank you for involving pulmonary in this patient care. We will continue to follow.
[2020-12-15 12:00] VITALS: BP 151/91; PULSE 46; RESP 20; TEMP 36.4; O2SAT 91
--- NOTE | 2020-12-15 12:31 | HMH.DCSUM ---
General - General Admission date:: 12/12/20 Discharge date: 12/15/20 HPI HPI: this patient presented to the ed by ems with cough and progressive weakness with dec po intake and dec adl/iadl-pt with positive covis with abn cxr and required o2 and had sig abn ekg - pt was discussed with card and admitted for eval and treatment Hospital Course Hospital Course: this patient presented to the ed by ems with cough and progressive weakness with dec po intake and dec adl/iadl-pt with positive covis with abn cxr and required o2 and had sig abn ekg - pt was discussed with card and admitted for eval and treatment 12/12/20 CXR: FINDINGS: Lungs: Emphysema; Patchy airspace disease in the left mid lung and to a lesser degree the right middle lobe versus lung base. Pleural spaces: Unremarkable. No pleural effusion. No pneumothorax. Heart/Mediastinum: Borderline cardiomegaly Bones/joints: Unremarkable. IMPRESSION: Patchy airspace disease in the left mid lung and to a lesser degree the right middle lobe versus lung base. Covid within the differential diagnosis. Consider CT. Electronically signed by Yuriy Sheffield MD 12/14/20 ECHO: Conclusion 1. Mildly enlarged left atrium, normal left ventricular size, mild concentric left ventricular hypertrophy, visually estimated ejection fraction 55% with no regional wall motion abnormality, grade 1 diastolic dysfunction seen without tissue Doppler evidence of raise left atrial pressure. 2. Mild aortic, mild mitral and tricuspid regurgitation. 3. No significant pericardial effusion noted. Electronically signed by : Evaristo Sharma MD Cardiology has seen and recommends: 1. The patient was admitted to the hospital for cough and weakness and fatigue. The patient reported that she had had a cold for 2 weeks prior to coming into the hospital. The patient was unvaccinated against COVID-19. She was admitted for COVID-19 and is being treated by her primary care provider and pulmonology. Will defer. 2. Cardiology was contacted because the patient does have an abnormal EKG. She denies any chest pain or pressure. She denies any shortness of breath. She has ruled out for an [place]. She denies any family history of heart disease and she denies a personal history of heart disease. No plans for invasive cardiac testing at this time since she is currently asymptomatic and has ruled out for an [place]. 3. Her preliminary echocardiogram shows a normal ejection fraction with no significant valvular disease. We are currently awaiting the official report. 4. Once the patient is discharged from the hospital and has recovered from COVID-19, she would benefit from an outpatient ischemic evaluation with stress testing secondary to her abnormal EKG. 5. Her blood pressure is elevated this morning. However her home medications have not been restarted. We will get her back on her beta-jany and calcium channel jany at this time. 6. Her LDL goal is less than 100. She is currently on pravastatin but we do recommend that she be on a super statin instead such as Lipitor or Crestor. We will change her pravastatin over to Lipitor 40 mg daily. We will get a lipid panel in the morning. 7. No further recommendations at this time from a cardiac standpoint. As mentioned above the patient would benefit from an outpatient ischemic evaluation once she is discharged from the hospital and recovered from COVID-19 and we would recommend changing her pravastatin over to Lipitor. The patient can follow-up in 2 to 4 weeks when she is discharged from the hospital and recovered from COVID-19. Geraldine wants to restart Bystolic at 5 mg daily. Stop nifedipine and start Norvasc 5 mg daily for BP control. Pulmonology has seen and recommends: Plan: Given patient not needing any oxygen supplementation will proceed with Regen CoV Continue doxycycline for a total of 5 days Combivent every 6 hours as needed Joanie
--- NOTE | 2020-12-15 16:23 | PC.NURSE ---
CALLED ARGELIA FOWLER REGARDING PATIENTS DISCHARGE ORDER SINCE 1303. ARGELIA STATED HE COULD NOT COME AND GET PATIENT BECAUSE HE ALSO HAS COVID AND IN QUARANTINE. INSTRUCTED ARGELIA THAT PATIENT IS DISCHARGED AND WE NEED SOMEONE TO COME AND GET HER, HE THEN STATED HE WOULD TRY TO FIND SOMEONE TO COME AND GET HER.
--- NOTE | 2020-12-22 14:02 | SW/DCPLANNER ---
Addendum entered by Lashonda Pichardo 12/22/20 14:31: Per Jer request information has also been faxed to [facility] and [facility]. I have asked facilities to follow up with Dante once patient information is reviewed. Original Note: Patients caregiver (Scot) has called requesting a private sitters list. I have emailed Scot a sitters list along with contact information for the program [facility] with [employer].
== END 2020-12-15 17:51 | disposition home or self-care (01) | DRG 177 ==
LOC: ER 11:12 → 2ND 12:41 → ICU 12-14 15:24 → 2ND 12-14 15:43 → ICU 12-14 15:44
PROVIDERS: Internal Medicine Pulmonary Disease; Nurse Practitioner Family; Admitting Provider Emergency Medicine; Emergency Provider Emergency Medicine; Visit Provider Emergency Medicine
DX: U07.1 COVID-19 (principal); J12.82 Pneumonia due to coronavirus disease 2019; N17.9 Acute kidney failure, unspecified; E03.9 Hypothyroidism, unspecified; I10 Essential (primary) hypertension; E78.5 Hyperlipidemia, unspecified; M19.90 Unspecified osteoarthritis, unspecified site; Z87.891 Personal history of nicotine dependence; F31.9 Bipolar disorder, unspecified; E87.6 Hypokalemia
CPT/HCPCS: 36415; 71045; 80048; 80053; 80061; 81001; 82728; 83735; 84436; 84443; 84484; 85025; 85378; 86140; 87507; 93005; 93306; 96374; 99284; U0003

== ENCOUNTER → 2021-10-06 09:19 | Outpatient (CLI) | payer MEDICARE, SELFPAY ==
[2021-10-05 17:20] LABS: Basophils # 0.1 K/mm3 (0-0.2); Basophils % 0.9 % (0.1-2.0); Eosinophils # 0.1 K/mm3 (0.0-0.4); Eosinophils % 0.7 % (0.1-12.0); Hematocrit 42.4 % (37.0-47.0); Hemoglobin 13.7 g/dL (12.2-16.2); Lymphocytes # 1.5 K/mm3 (0.7-4.5); Lymphocytes % 19.4 % (10-50); Mean Corpuscular HGB Conc 32.3 g/dL (31.8-35.4); Mean Corpuscular Hemoglobin 32.7 pg (27.0-31.2); Mean Corpuscular Volume 101.1 fl (81-99); Mean Platelet Volume 10.2 fl (7.4-10.4); Monocytes # 0.6 K/mm3 (0.1-1.0); Neutrophils # 5.4 K/mm3 (1.8-7.8); Platelet Count 249 K/mm3 (142-424); Red Cell Distribution Width 13.6 % (11.5-17.5); White Blood Count 7.6 K/mm3 (4.8-10.8)
[2021-10-05 18:09] LABS: Chloride 107 mmol/L (98-107); Sodium 144 mmol/L (136-145)
[2021-10-05 18:10] LABS: Potassium 4.4 mmoL/L (3.5-5.1)
[2021-10-05 18:12] LABS: Alanine Aminotransferase 16 U/L (12-78); Albumin Level 4.3 g/dl (3.5-5.0); Albumin/Globulin Ratio 1.4 (1.1-1.8); Alkaline Phosphatase 106 U/L (38-126); Anion Gap 13.4 mEq/L (5-15); Aspartate Amino Transferase 30 U/L (14-36); Bilirubin,Total 0.3 mg/dl (0.2-1.3); Blood Urea Nitrogen 26 mg/dl (7-17); Carbon Dioxide 28 mmol/L (22.0-30.0); Cholesterol 183 mg/dl (140-200); Estimated Glomerular Filt Rate 25 ml/min (>60); GFR (African American) 31 ML/MIN (>60); Total Protein,Serum 7.3 g/dl (6.3-8.2); Triglycerides 164 mg/dl (30-150); VLDL Cholesterol 33 mg/dL (0-40)
[2021-10-05 18:13] LABS: Calcium 10.6 mg/dl (8.4-10.2); Chol/HDL Ratio 3.5 (1-3.5); Glucose 117 mg/dl (74-100); HDL Cholesterol 53 mg/dl (40-60)
[2021-10-05 18:24] LABS: Direct LDL Cholesterol 85.78 mg/dL (100-129)
[2021-10-05 18:44] LABS: Thyroid Stimulating Hormone 0.65 uIU/mL (0.465-4.68)
[2021-10-13 10:46] LABS: 1,25 Dihydroxy Vitamin D 34 pg/mL (.); 1,25-Dihydroxy, Vitamin D-2 <10 pg/mL (.); 1,25-Dihydroxy, Vitamin D-3 34 pg/mL (.)
== END ==
PROVIDERS: Visit Provider Physician Assistant
DX: I10 Essential (primary) hypertension (principal); E78.5 Hyperlipidemia, unspecified; Z00.00 Encounter for general adult medical examination without abnormal findings; R53.83 Other fatigue
CPT/HCPCS: 80053; 80061; 82652; 84443; 85025

== ENCOUNTER → 2021-12-11 09:07 | Outpatient (CLI) | payer MEDICARE, SELFPAY | PROVIDERS: PCP Physician Assistant; Visit Provider Physician Assistant | DX: R41.0 Disorientation, unspecified (principal); B96.1 Klebsiella pneumoniae [K. pneumoniae] as the cause of diseases classified elsewhere | CPT/HCPCS: 87086; 87088; 87186 ==

== ENCOUNTER → 2021-12-16 08:26 | Outpatient (CLI) | payer MEDICARE, SELFPAY ==
[2021-12-16 08:28] LABS: Microscopic, Urine URINE MICROSCOPIC (MICROSCOPIC)
[2021-12-16 18:44] LABS: Appearance,Urine CLEAR (Clear); Bilirubin,Urine Negative (Negative); Blood, Urine Negative (Negative); Color,Urine YELLOW (Yellow); Glucose,Urine (UA) Negative (Negative); Ketones,Urine Negative (Negative); Leukocyte Esterase,Urine Negative (Negative); Nitrate,Urine Negative (Negative); Protein,Urine 1+ (Negative); Urobilinogen,Urine 0.2 EU/dl (0.2)
[2021-12-16 20:48] LABS: Bacteria,Urine Trace /lpf; WBC,Urine Occasional #/hpf (0-3)
[2021-12-23 09:12] LABS: Free Valproic Acid (Depakote) 16.8
== END ==
PROVIDERS: PCP Physician Assistant; Visit Provider Physician Assistant
DX: R41.0 Disorientation, unspecified (principal)
CPT/HCPCS: 36415; 80165; 81001; 87086

== ENCOUNTER 2022-06-13 08:54 | Observation (INO) | payer MEDICARE, SELFPAY ==
[2022-06-13] VITALS (16 sets, daily range): BP systolic 132–163; BP diastolic 75–116; PULSE 69–81; RESP 18–26; TEMP 35.8–37; O2SAT 93–97; BMI 23.0; BMI 22.5
--- NOTE | 2022-06-13 09:10 | XR_ITS ---
FINAL REPORT CLINICAL HISTORY: Acute cough FINDINGS: A portable view of the chest was obtained. Comparison is made to a prior exam dated 12/12/2020. Cardiac and mediastinal silhouettes are within normal limits. The lungs volumes are low but are otherwise clear. There is no pleural effusion or pneumothorax. IMPRESSION: No acute process on this portable exam. Reviewed, Interpreted and Dictated by Nika Crump MD Transcribed by Bing Waterman Authenticated and [facility]
--- NOTE | 2022-06-13 09:12 | HMH.EDGENADL ---
Discharge Plan Disposition Patient Disposition: Admitted As Inpatient Condition: Fair Prescriptions Prescriptions: No Action atorvastatin 40 mg tablet 40 mg PO DAILY Rx Instructions: TAKE 1 TABLET BY MOUTH ONCE AT BEDTIME amlodipine 5 mg tablet 5 mg PO DAILY Rx Instructions: TAKE 1 TABLET BY MOUTH ONCE DAILY levothyroxine 75 mcg tablet 75 mcg PO DAILY Rx Instructions: TAKE 1 TABLET BY MOUTH ONCE DAILY divalproex [Depakote ER] 500 mg tablet extended release 24 hr 500 mg PO DAILY ziprasidone HCl 40 mg capsule 40 mg PO DAILY Rx Instructions: give with food (meal/snack) Referrals Follow up/Referrals: Provider,Referral, MD [Referring] - See instructions Clinical Impressions Clinical Impression: Fall, Weakness, Acute lower urinary tract infection, Congestive heart failure, Acute kidney injury Discharge ED Provider: Efrain Wray General Adult HPI General Chief complaint: Upper Respiratory Infection Stated complaint: weakness Time Seen by Provider: 06/13/22 09:06 Mode of Arrival: EMS Source of Information: Patient and EMS Limitations: No Limitations Description of Symptoms (Recalled from ER Triage Doc. by RN): pt to ed via ems c/o cough and generalied weakness x3 days. pt states she has had a non-productive cough. Related Data Home Medications Medication Instructions Recorded Confirmed amlodipine 5 mg tablet 5 mg PO DAILY High blood pressure 06/13/22 06/13/22 atorvastatin 40 mg tablet 40 mg PO DAILY Cholesterol 06/13/22 06/13/22 divalproex 500 mg tablet,extended 500 mg PO DAILY seizure 06/13/22 06/13/22 release 24 hr (Depakote ER) levothyroxine 75 mcg tablet 75 mcg PO DAILY thyroid 06/13/22 06/13/22 ziprasidone HCl 40 mg capsule 40 mg PO DAILY mood 06/13/22 06/13/22 Allergies Allergy/AdvReac Type Severity Reaction Status Date / Time Iodine and Iodide Containing Allergy Unknown Unknown Verified 06/08/22 10:11 Produc allergy reaction [facility] Disclaimer: The information contained in this section may have been updated after the patient was seen, as this information can be updated by other users. Medical History Abnormal electrocardiogram [ECG] [EKG] ADAMA (acute kidney injury) Bipolar disorder Hypertension Hypothyroidism Tardive dyskinesia Social History Smoking Status: Never smoker alcohol intake: never substance use type: denies use current occupational status: retired Travel in the last 8 weeks: None household members: none housing: house ROS Obtained: Yes All systems reviewed & no additional complaints except as documented Physical Exam General General appearance: alert and in no apparent distress Head Head exam: atraumatic, normocephalic and normal inspection Eye Eye exam: Present normal appearance, PERRL and EOMI ENT ENT exam: Present normal exam, normal oropharynx, mucous membranes moist, TM's normal bilaterally and normal external ear exam Neck Neck exam: Present normal inspection, full ROM and trachea midline; Absent meningismus or lymphadenopathy Chest Chest inspection: Present normal inspection and symmetric chest wall rise; Absent tenderness Respiratory Respiratory exam: Present normal lung sounds bilaterally; Absent respiratory distress Cardiovascular Cardiovascular exam: Present regular rate and normal rhythm; Absent JVD Abdominal Exam Abdominal exam: Present soft and normal bowel sounds; Absent distention, tenderness or guarding Extremities Exam Extremities exam: Present normal inspection, full ROM and normal capillary refill; Absent calf tenderness Back Exam Back exam: Present normal inspection; Absent tenderness Neurological Exam Neurological exam: Present alert and oriented X3 Psychiatric Psychiatric exam: Present normal affect and normal mood Skin Skin exam: Present warm, dry, intact and nor
--- NOTE | 2022-06-13 09:22 | CT_ITS ---
FINAL REPORT TECHNIQUE: Thin section axial images were obtained from skull base to vertex without contrast. Coronal reconstruction images were obtained from the axial data. Exam was performed using dose reduction technique. CLINICAL HISTORY: fall- FINDINGS: There is age-appropriate atrophy. There is no mass effect or midline shift. There is no intracranial hemorrhage. There is no hydrocephalus. Periventricular low density is likely related to changes of chronic small vessel ischemia. The basilar cisterns are preserved. The posterior fossa is without acute abnormality. The soft tissues are without acute abnormality. There is mucoperiosteal thickening at the paranasal sinuses without air-fluid levels. No acute osseous abnormality is identified. IMPRESSION: No acute intracranial abnormality. Atrophy and changes suggesting chronic small vessel ischemia. Paranasal sinus disease, favored to be chronic. Reviewed, Interpreted and Dictated by Nika Crump MD Transcribed by Bing Waterman Authenticated and [facility]
--- NOTE | 2022-06-13 09:34 | ECG_ITS ---
APPROVED REPORT Exam: Resting ECG HR:80 bpm ECG Measurements Heart Rate 80 AXES NJ 178 P 79 QRSd 155 QRS -35 QT 414 T -24 QTc 450 Conclusion SINUS RHYTHM LEFT AXIS DEVIATION [QRS AXIS < -30] RIGHT BUNDLE BRANCH BLOCK [120+ ms QRS DURATION, UPRIGHT V1, 40+ ms S IN I/aVL/V4/V5/V6] ABNORMAL ECG UNCONFIRMED REPORT Electronically signed by : Sean Retana MD 06/13/2022 19:22:05
[2022-06-13 09:52] LABS: Microscopic, Urine URINE MICROSCOPIC (MICROSCOPIC)
[2022-06-13 09:53] LABS: Coronavirus 19, PCR Not Detected (NotDetected); Influenza A, PCR Not Detected (NotDetected); Influenza B, PCR Not Detected (NotDetected)
[2022-06-13 09:54] LABS: Basophils # 0.1 K/mm3 (0-0.2); Basophils % 0.8 % (0.1-2.0); Chloride 112 mmol/L (98-107); Eosinophils % 0.3 % (0.1-12.0); Hematocrit 37.4 % (37.0-47.0); Hemoglobin 12.6 g/dL (12.2-16.2); Lymphocytes # 0.7 K/mm3 (0.7-4.5); Lymphocytes % 6.4 % (10-50); Mean Corpuscular HGB Conc 33.7 g/dL (31.8-35.4); Mean Corpuscular Hemoglobin 32.7 pg (27.0-31.2); Mean Corpuscular Volume 97.2 fl (81-99); Mean Platelet Volume 9.4 fl (7.4-10.4); Monocytes # 0.9 K/mm3 (0.1-1.0); Monocytes % 8.4 % (1.7-9.3); Neutrophils # 8.6 K/mm3 (1.8-7.8); Neutrophils % 84.2 % (37.0-80.0); Platelet Count 205 K/mm3 (142-424); Red Blood Count 3.85 M/mm3 (4.20-5.40); Red Cell Distribution Width 13.4 % (11.5-17.5); Sodium 143 mmol/L (136-145); White Blood Count 10.2 K/mm3 (4.8-10.8)
--- NOTE | 2022-06-13 09:55 | PC.NURSE ---
called rehab for PT lauraal
[2022-06-13 09:56] LABS: Appearance,Urine SL CLOUDY (Clear); Bilirubin,Urine Negative (Negative); Blood Urea Nitrogen 32 mg/dl (7-17); Blood, Urine 3+ (Negative); Color,Urine YELLOW (Yellow); Creatinine Clearance Estimated 17 mL/min (50-200); Estimated Glomerular Filt Rate 20 ml/min (>60); GFR (African American) 25 ML/MIN (>60); Glucose,Urine (UA) Negative (Negative); Ketones,Urine Negative (Negative); Leukocyte Esterase,Urine TRACE (Negative); Nitrate,Urine POSITIVE (Negative); Protein,Urine 3+ (Negative); Specific Gravity, Urine 1.025 (1.005-1.030); Urobilinogen,Urine 0.2 EU/dl (0.2)
[2022-06-13 09:57] LABS: Alanine Aminotransferase 49 U/L (12-78); Albumin/Globulin Ratio 1.2 (1.1-1.8); Alkaline Phosphatase 107 U/L (38-126); Aspartate Amino Transferase 157 U/L (14-36); Bilirubin,Total 0.5 mg/dl (0.2-1.3); Calcium 9.3 mg/dl (8.4-10.2); Carbon Dioxide 23 mmol/L (22.0-30.0); Globulin 3.4 g/dL (1.3-3.2); Glucose 101 mg/dl (74-100); Total Protein,Serum 7.4 g/dl (6.3-8.2)
[2022-06-13 10:01] LABS: Strep Scrn Group A (Rapid) Negative (Negative)
[2022-06-13 10:06] LABS: NT Pro Brain Natriuretic Pep. 5240 pg/mL (0-450)
[2022-06-13 10:08] LABS: Lactic Acid 1.9 mmol/L (0.7-2.1)
--- NOTE | 2022-06-13 10:30 | PC.NURSE ---
Dr Wray speaking to Hospitalist
[2022-06-13 10:32] LABS: Bacteria,Urine 2+ /lpf; Squamous Epithelial Cell,Urine Occasional #/hpf (0-5)
--- NOTE | 2022-06-13 10:33 | PC.NURSE ---
spoke with byron in cm for bed assignment
--- NOTE | 2022-06-13 10:36 | CA_ITS ---
APPROVED REPORT EXAM: Comprehensive 2D, Doppler, and color-flow Echocardiogram Stock Raiser: Erika Carrero RVT Ht: 5 ft 1 in Wt: 122lbs BSA: 1.53 BP: 132/76 mmHg Indications: ELEVATED BNP,RBBB,TD,HTN,HLD,BIPOLAR 2D Dimensions IVSd 2.04 cm F: 0.6-1.0 LVEF (Visual) 61.90 % PWd 0.90 cm F: 0.6 - 1.0 LA Volume 13.40 mL LVDd 3.88 cm F: 3.9 - 5.3 LA Volume Index 8.76 mL/m2 (M/F) 16-34 LVDs 2.61 cm F: 2.2 - 3.5 LVOT 2.04 cm (M/F) 1.5-2.5 M-Mode Dimensions LA Diam 2.89 cm (1.9-4.0) Ao Diam 3.21 cm (2.0-3.7) TAPSE 1.57 (<1.7) LV Diastology E Decel Time 150.00 (160-240 msec) E/A Ratio 0.7 MED E' 6.00 (< 7 cm/sec) E'/MED E' Ratio 11.58 (>14) LAT E' 7.20 (<10 cm/sec) E/LAT E' Ratio 9.65 (>14) Aortic Valve AI PHT 398.00 ms AO Peak GR. 10.30 mmHg Mitral Valve MV E Max Andrew. 69.00 (40-130 cm/s) MV A Velocity 106.00 (40-130 cm/s) E/A Ratio 0.66 MV Decel. Time 150.00 (160-240 ms) MV PHT 44.00 ms Pulmonary Valve PV Peak Velocity 90.00 (50-150 cm/s) Tricuspid Valve TR P. Velocity 256.00 cm/s RAP Estimate 10.00 mmHg RVSP 36.30 mmHg Left Ventricle Left atrium is mildly enlarged, left ventricle is normal size, estimated ejection fraction 55% with no regional wall motion abnormality, grade 1 diastolic dysfunction seen without tissue Doppler evidence of raise left atrial pressure. Right Ventricle Right atrium and right ventricle are normal size and contractility. Aortic Valve Aortic valve is thickened and calcified without aortic stenosis, there is mild aortic insufficiency. Mitral Valve Mitral valve is grossly normal, there is mild mitral regurgitation. Tricuspid Valve Tricuspid valve is grossly normal, there is mild tricuspid regurgitation, calculated right ventricular systolic pressure 36 mmHg. Pulmonic Valve Pulmonic valve is poorly visualized. Great Vessels Aortic root is normal size. Inferior vena cava is normal size with normal inspiratory collapse. Pericardium No significant pericardial effusion noted. Conclusion 1. Mildly enlarged left atrium, normal left ventricular size, mild concentric left ventricular hypertrophy, estimated ejection fraction 55% with no regional wall motion abnormality, grade 1 diastolic dysfunction seen without tissue Doppler evidence of raise left atrial pressure. 2. Mild aortic, mitral and tricuspid regurgitation, calculated right ventricular systolic pressure 36 mmHg. 3. No significant pericardial effusion noted. 4. Inferior vena cava is normal size with normal inspiratory collapse. Electronically signed by : Evaristo Sharma MD 06/14/2022 06:01:21
--- NOTE | 2022-06-13 10:40 | PC.NURSE ---
1040 BED ASSIGNMENT REQUESTED, ROOM 213. ALL STAFF NOTIFIED
--- NOTE | 2022-06-13 10:44 | HMH.PHAINT1 ---
Pharmacy Intervention Comments: Medication reconciliation completed using external fill history and PCP office visit note (06/08/22)
--- NOTE | 2022-06-13 10:47 | EXP.HP ---
History of Present Illness *Admission Date: 06/13/22 *Reason for visit:: Fall, weakness *History of present illness: Ms. Marquez is an 82-year-old female who presents from home via EMS with complaint of cough and generalized weakness for the past 3 days. Cough is nonproductive. States she fell at home today. Usually ambulatory at home without any assistive devices. States she has a shuffling gait. Fell today but did not hurt anything. Denies any chest pain or shortness of breath. Denies any nausea or vomiting. Denies any confusion, diarrhea, fever, chills. Patient's vitals appropriate on arrival with stable saturations on room air. Initial work-up with concerning findings on UA for UTI, slight increase in her creatinine from baseline with her chronic kidney disease, and elevation of BNP. Chest x-ray obtained with no acute pathology airspace disease. Given her UTI, weakness, falls, medicine consulted for Obs admission and further treatment. After arriving to the OR, patient is hemodynamically stable. Pleasant on interview. States she fell today for the first time. Does not fall regularly. Walks with a shuffling gait. Is able to tell me who she is, where she is, why she is here. Alert and oriented x3. [facility] Disclaimer: The information contained in this section may have been updated after the patient was seen, as this information can be updated by other users. Medical History Abnormal electrocardiogram [ECG] [EKG] ADAMA (acute kidney injury) Bipolar disorder Hypertension Hypothyroidism Tardive dyskinesia Surgical History History of kidney surgery Family History History of kidney problems Family history of cancer Social History Smoking Status: Never smoker alcohol intake: never substance use type: denies use current occupational status: retired Travel in the last 8 weeks: None household members: none housing: house Review of Systems Review of Systems Review of systems (narrative): 14 point review of systems performed, pertinent positives and negatives as per HPI Meds Home Medications and Allergies Home Medications Medication Instructions Recorded Confirmed Type amlodipine 5 mg tablet 5 mg PO DAILY High blood pressure 06/13/22 06/13/22 History atorvastatin 40 mg tablet 40 mg PO HS Cholesterol 06/13/22 06/13/22 History divalproex 500 mg tablet,extended 500 mg PO DAILY mood 06/13/22 06/13/22 History release 24 hr (Depakote ER) levothyroxine 75 mcg tablet 75 mcg PO DAILY thyroid 06/13/22 06/13/22 History ziprasidone HCl 40 mg capsule 40 mg PO DAILY mood 06/13/22 06/13/22 History New Prescriptions to Start Prescriptions: Allergies Allergy/AdvReac Type Severity Reaction Status Date / Time Iodine and Iodide Containing Allergy Unknown Unknown Verified 06/08/22 10:11 Produc allergy reaction Exam Data for Last 24 hours Vital signs and Labs for Last 24 Hours: Temp Pulse Resp BP Pulse Ox 98.5 F 72 26 H 142/84 H 96 06/13/22 09:02 06/13/22 10:00 06/13/22 10:00 06/13/22 10:00 06/13/22 10:00 Laboratory Results - last 24 hr 06/13/22 09:00: SARS-CoV-2 (PCR) Not detected, Influenza A Untype (PCR) Not detected, Influenza Type B (PCR) Not detected 06/13/22 09:33: WBC 10.2, RBC 3.85 L, Hgb 12.6, Hct 37.4, MCV 97.2, MCH 32.7 H, MCHC 33.7, RDW 13.4, Plt Count 205, MPV 9.4, Neut % (Auto) 84.2 H, Lymph % (Auto) 6.4 L, [place] % (Auto) 8.4, Eos % (Auto) 0.3, Baso % (Auto) 0.8, Neut # (Auto) 8.6 H, Lymph # (Auto) 0.7, [place] # (Auto) 0.9, Eos # (Auto) 0.0, Baso # (Auto) 0.1 06/13/22 09:33: Sodium 143, Potassium 4.0, Chloride 112 H, Carbon Dioxide 23, Anion Gap 12.0, BUN 32 H, Creatinine 2.30 H, Estimated Creat Clear 17, Estimated GFR 20 L, Est GFR ( Amer) 25 L, Glucose 101 H
--- NOTE | 2022-06-13 11:10 | PC.NURSE ---
vascular at bedside
[2022-06-13 11:38] LABS: Hemoglobin A1C 5.2 % (4.0-6.0)
[2022-06-13 11:55] LABS: Thyroid Stimulating Hormone 1.82 uIU/mL (0.465-4.68)
--- NOTE | 2022-06-13 12:40 | PC.NURSE ---
REPORT GIVEN TO Chichi RALPH RN
--- NOTE | 2022-06-13 12:54 | PC.NURSE ---
PT TO FLOOR AT THIS TIME
--- NOTE | 2022-06-13 12:56 | PC.NURSE ---
patient arrived by stretcher to floor from ED
--- NOTE | 2022-06-13 12:58 | PC.NURSE ---
PT GONE UP FOR ADMISSION
--- NOTE | 2022-06-13 14:02 | HMH.PTEV ---
Physical Therapy Evaluation Rehab PT IP Evaluation Start: 06/13/22 09:53 Freq: ONCE Status: Active Protocol: Document 06/13/22 13:48 PHOAPARNA (Rec: 06/13/22 14:02 PHORNE [id number]) Subjective/History History History 82 yowf adm to [facility] with ADAMA and poss CHF exac. She reports she lives alone, but has a guardian who assists her a considerable amount. She uses a cane for ambulation at baseline and is able to perform all ADLs independently . She does reports havign a fall prior to adm, but no significant injuries. Subjective Subjective Pt has no c/o this pm, I'm feeling better. Rehab PT IP Eval Objective Appearance Patient Behavior Appropriate Patient Orientation Person,Place,Time Difficulty following instructions none Speech Pattern Clear Ambulation Patient Able to Ambulate Yes Ambulation Observation IP General Gait Pattern Observation Shuffling Step Ambulation Distance (feet) 20 Ambulation Assistive Device None Ambulation Ability Supervision/Stand by Balance Ability to Arise Able, uses arms to help Sitting Balance Steady, safe Standing Balance Steady, wide stance Dynamic Sitting Balance Ability Good Dynamic Standing Balance Ability Fair Transfers Bed Transfer Ability Supervision/Stand by Chair Transfer Ability Supervision/Stand by Sit to Stand Bed Transfer Ability Supervision/Stand by Sit to Stand Chair Transfer Ability Supervision/Stand by ROM All Extremities PT ROM Status WFL MMT All Extremities PT MMT WFL Rehab PT IP prob,goals,plan Problems Date of Evaluation: 06/13/22 Discharge Plan PT Discharge Plan Pt appears to be at baseline for all mobility upon presentation this pm. She does present with B shortened stride length and mildly festinating gait pattern, but she remains safe to ambulate in her home with her can. Recommend Home health therapy upon d/c. G -code Required No Eval Complexity Eval Charge Codes 16020 - Moderate Complexity PHYSICIAN CERTIFICATION: I certify th
--- NOTE | 2022-06-13 14:23 | PC.NURSE ---
Report given to Flynn Moreno RN
[2022-06-13 18:58] LABS: Chloride 110 mmol/L (98-107); Sodium 140 mmol/L (136-145)
[2022-06-13 19:01] LABS: Blood Urea Nitrogen 33 mg/dl (7-17); Creatinine Clearance Estimated 18 mL/min (50-200); Estimated Glomerular Filt Rate 23 ml/min (>60); GFR (African American) 27 ML/MIN (>60)
[2022-06-13 19:02] LABS: Calcium 8.4 mg/dl (8.4-10.2); Carbon Dioxide 24 mmol/L (22.0-30.0); Glucose 181 mg/dl (74-100)
--- NOTE | 2022-06-13 19:30 | PC.NURSE ---
Pt resting in bed. Nephew visited with pt and brought POA paperwork. Paperwork is on chart. Pt is A&O x3. Ambulates with assistance to BSC. Medication administered per jun. VSS.
[2022-06-14 04:00] VITALS: BP 132/68; PULSE 72; RESP 16; TEMP 36.6; O2SAT 94; BMI 22.5
--- NOTE | 2022-06-14 05:51 | PC.NURSE ---
Pt. aox3 and calls out when needing assistance to the BSC. Takes her pills whole.
[2022-06-14 06:42] LABS: Basophils % 0.4 % (0.1-2.0); Eosinophils # 0.1 K/mm3 (0.0-0.4); Eosinophils % 1.6 % (0.1-12.0); Hematocrit 34.1 % (37.0-47.0); Lymphocytes # 1.8 K/mm3 (0.7-4.5); Lymphocytes % 29.3 % (10-50); Mean Corpuscular Hemoglobin 32.3 pg (27.0-31.2); Mean Corpuscular Volume 97.8 fl (81-99); Mean Platelet Volume 9.2 fl (7.4-10.4); Monocytes % 15.5 % (1.7-9.3); Neutrophils # 3.3 K/mm3 (1.8-7.8); Neutrophils % 53.2 % (37.0-80.0); Platelet Count 185 K/mm3 (142-424); Red Blood Count 3.49 M/mm3 (4.20-5.40); Red Cell Distribution Width 13.4 % (11.5-17.5); White Blood Count 6.2 K/mm3 (4.8-10.8)
[2022-06-14 06:44] LABS: Chloride 112 mmol/L (98-107); Sodium 140 mmol/L (136-145)
[2022-06-14 06:46] LABS: Blood Urea Nitrogen 33 mg/dl (7-17); Creatinine Clearance Estimated 18 mL/min (50-200); Estimated Glomerular Filt Rate 23 ml/min (>60); GFR (African American) 27 ML/MIN (>60)
[2022-06-14 06:47] LABS: Alanine Aminotransferase 43 U/L (12-78); Albumin Level 3.1 g/dl (3.5-5.0); Albumin/Globulin Ratio 1.1 (1.1-1.8); Alkaline Phosphatase 74 U/L (38-126); Aspartate Amino Transferase 131 U/L (14-36); Bilirubin,Total 0.3 mg/dl (0.2-1.3); Calcium 8.4 mg/dl (8.4-10.2); Carbon Dioxide 23 mmol/L (22.0-30.0); Globulin 2.8 g/dL (1.3-3.2); Glucose 91 mg/dl (74-100); Total Protein,Serum 5.9 g/dl (6.3-8.2)
[2022-06-14 06:48] LABS: Magnesium 2.2 mg/dl (1.6-2.3)
[2022-06-14 06:56] LABS: Hemoglobin 11.3 g/dL (12.2-16.2)
[2022-06-14 08:00] VITALS: BP 166/90; PULSE 69; RESP 17; TEMP 36.4; O2SAT 96
--- NOTE | 2022-06-14 08:50 | SW/DCPLANNER ---
Addendum entered by Lashonda Pichardo 06/14/22 11:50: B[facility]bara [facility]/ [facility] stated that she can accept this patient for SNF level of care today. I will update patient/family and MD. Addendum entered by Lashonda Pichardo 06/14/22 11:24: Dante has now stated that he does not feel he is currently able to care for patient at home and she will need SNF level of care. Patient information has been faxed to [facility]. I did explain to Dante that MD has stated patient is medically stable for discharge and PT has evaluated patient and stated she can physically return home with home health. I also explained to Dante that Medicare may not pay due to being able to safely return with home health per PT. B[facility]/ [facility] is reviewing patient information at this time. Addendum entered by Lashonda Pichardo 06/14/22 10:52: Patient information/order has been faxed to [facility]. Patient will discharge home today. Original Note: I spoke with this patient regarding plans once medically stable for discharge. Patient stated that she resides at [place] with her Guardian (Dante) whom helps care for her at home. PT evaluated patient and recommended home health services. Patient is agreeable to return home with home health services once medically stable for discharge. Patient asked that I call Dante regarding home health agency. Dante stated that she has used [facility] in the past and he would prefer to use the same agency. I updated Dante that agency is now called [facility] and patient information/order will be faxed at time of discharge. I will continue to follow up with patient, Dante and .
--- NOTE | 2022-06-14 10:48 | EXP.DC.SUM ---
General Admission date:: 06/13/22 Discharge date: 06/14/22 HPI HPI HPI: Ms. Marquez is an 82-year-old female who presents from home via EMS with complaint of cough and generalized weakness for the past 3 days. Cough is nonproductive. States she fell at home today. Usually ambulatory at home without any assistive devices. States she has a shuffling gait. Fell today but did not hurt anything. Denies any chest pain or shortness of breath. Denies any nausea or vomiting. Denies any confusion, diarrhea, fever, chills. Patient's vitals appropriate on arrival with stable saturations on room air. Initial work-up with concerning findings on UA for UTI, slight increase in her creatinine from baseline with her chronic kidney disease, and elevation of BNP. Chest x-ray obtained with no acute pathology airspace disease. Given her UTI, weakness, falls, medicine consulted for Obs admission and further treatment. After arriving to the OR, patient is hemodynamically stable. Pleasant on interview. States she fell today for the first time. Does not fall regularly. Walks with a shuffling gait. Is able to tell me who she is, where she is, why she is here. Alert and oriented x3. Hospital Course Hospital Course Hospital Course: 82-year-old female with fall at home today.? Brought in via EMS.? Found to have UTI.? Admitted to observation for therapy eval, initiation of IV antibiotics, and close monitoring of her labs given ADAMA.? Administering gentle fluid rehydration for 500 cc.? Problems addressed as follows: UTI -Urinalysis abnormal, urine culture growing GNR >100K cfu. final culture pending. Treated with ceftriaxone while admitted. transitioned to cefdinir to complete 7 days of therapy. First dose due morning of 06/15/2022. 5 more days of cefdinir to complete 7 total days of therapy. Will continue to follow cultures for sensitivities. ADAMA on CKD -Gentle rehydration with 500 cc IV fluids over 2 hours on admission. Had slight improvement creatinine to 2.1. Additional 500 cc of IV fluids given on day of discharge. Would benefit from repeat labs in a week to monitor for stability and creatinine. Caution with nephrotoxins. Diastolic CHF Hypertension Hyperlipidemia Patient appears euvolemic on exam with no crackles, no peripheral edema, no shortness of breath, moist mucous membranes.? Gentle rehydration with 500 cc over 2 hours on admission. Slight improvement in her creatinine. No indication for diuresis. Continue home medications. Echo obtained with following results: Conclusion 1.? Mildly enlarged left atrium, normal left ventricular size, mild concentric left ventricular hypertrophy, estimated ejection fraction 55% with no regional wall motion abnormality, grade 1 diastolic dysfunction seen without tissue Doppler evidence of raise left atrial pressure. 2.? Mild aortic, mitral and tricuspid regurgitation, calculated right ventricular systolic pressure 36 mmHg. 3.? No significant pericardial effusion noted. 4.? Inferior vena cava is normal size with normal inspiratory collapse. Bipolar: Continue home ziprasidone and divalproex. VPA level obtained, still pending on discharge. Mood stable during admission. Hypothyroid: TSH 1.82 on admission. Continue home levothyroxine 75 mcg daily PT/OT evaluated. Patient to be discharged to [facility] for rehab prior to going home with her caregiver. Symptoms concerning for Parkinson's. Would benefit from further evaluation as an outpatient given parkinsonian traits. Exam Data for Last 24 hours Vital signs and Labs for Last 24 Hours: Temp Pulse Resp BP Pulse Ox 97.5 F L 69 17 166/90 H 96 06/14/22 08:00 06/14/22 08:00 06/14/22 08:00 06/14/22 08:00 06/14/22 08:00 Laboratory Results - last 24 hr 06/13/22 09:33: Urine Color Yellow, Urine Appearance Sl cloudy, Urine pH 6.0, Ur Specific Guffey 1.025, Urine Protein 3+, Urine Glucose (UA) Negative, Urine Ketones Negative, Urine Blood 3+, Urin
[2022-06-14 11:54] VITALS: BP 157/86; PULSE 73; RESP 18; TEMP 36.7; O2SAT 97
[2022-06-14 11:58] VITALS: BP 106/58; PULSE 96; RESP 18; TEMP 36.8; O2SAT 100
[2022-06-18 21:44] LABS: Free Valproic Acid (Depakote) 19.5
== END 2022-06-14 15:00 ==
LOC: ER 10:40 → 2ND 11:24
PROVIDERS: Admitting Provider Internal Medicine Adolescent Medicine; Emergency Provider Emergency Medicine; PCP Physician Assistant; Visit Provider Internal Medicine Adolescent Medicine
DX: R53.1 Weakness; N18.4 Chronic kidney disease, stage 4 (severe); F31.62 Bipolar disorder, current episode mixed, moderate; E03.9 Hypothyroidism, unspecified; I13.0 Hypertensive heart and chronic kidney disease with heart failure and stage 1 through stage 4 chronic kidney disease, or unspecified chronic kidney disease; N17.9 Acute kidney failure, unspecified; Z79.899 Other long term (current) drug therapy; N39.0 Urinary tract infection, site not specified; I50.9 Heart failure, unspecified; Z20.822 Contact with and (suspected) exposure to COVID-19; W01.0XXA Fall on same level from slipping, tripping and stumbling without subsequent striking against object, initial encounter; Y92.019 Unspecified place in single-family (private) house as the place of occurrence of the external cause; G24.4 Idiopathic orofacial dystonia
CPT/HCPCS: G0378; 36415; 70450; 71045; 80048; 80053; 80165; 81001; 83036; 83605; 83735; 83880; 84443; 85025; 87040; 87086; 87088; 87186; 87430; 93005; 93306; 97162; 99285; C9803; J0696; U0003; U0005

== ENCOUNTER → 2022-09-14 23:21 | Outpatient (CLI) | payer MEDICARE, SELFPAY ==
[2022-09-14 13:35] LABS: Basophils % 0.4 % (0.1-2.0); Eosinophils # 0.2 K/mm3 (0.0-0.4); Hematocrit 38.8 % (37.0-47.0); Hemoglobin 12.5 g/dL (12.2-16.2); Lymphocytes # 1.2 K/mm3 (0.7-4.5); Lymphocytes % 12.9 % (10-50); Mean Corpuscular HGB Conc 32.2 g/dL (31.8-35.4); Mean Corpuscular Hemoglobin 31.6 pg (27.0-31.2); Mean Corpuscular Volume 98.1 fl (81-99); Mean Platelet Volume 9.4 fl (7.4-10.4); Monocytes # 0.9 K/mm3 (0.1-1.0); Monocytes % 9.1 % (1.7-9.3); Neutrophils # 7.2 K/mm3 (1.8-7.8); Neutrophils % 75.6 % (37.0-80.0); Platelet Count 292 K/mm3 (142-424); Red Blood Count 3.95 M/mm3 (4.20-5.40); Red Cell Distribution Width 14.2 % (11.5-17.5); White Blood Count 9.5 K/mm3 (4.8-10.8)
[2022-09-14 13:42] LABS: Alanine Aminotransferase 17 U/L (12-78); Albumin Level 3.8 g/dl (3.5-5.0); Albumin/Globulin Ratio 1.4 (1.1-1.8); Alkaline Phosphatase 115 U/L (38-126); Anion Gap 18.2 mEq/L (5-15); Aspartate Amino Transferase 28 U/L (14-36); Bilirubin,Total 0.3 mg/dl (0.2-1.3); Blood Urea Nitrogen 24 mg/dl (7-17); Calcium 9.2 mg/dl (8.4-10.2); Carbon Dioxide 23 mmol/L (22.0-30.0); Chloride 109 mmol/L (98-107); Chol/HDL Ratio 3.1 (1-3.5); Cholesterol 170 mg/dl (140-200); Estimated Glomerular Filt Rate 31 ml/min (>60); GFR (African American) 37 ML/MIN (>60); Globulin 2.8 g/dL (1.3-3.2); Glucose 93 mg/dl (74-100); HDL Cholesterol 54 mg/dl (40-60); Magnesium 1.8 mg/dl (1.6-2.3); Potassium 4.2 mmoL/L (3.5-5.1); Sodium 146 mmol/L (136-145); Total Protein,Serum 6.6 g/dl (6.3-8.2); Triglycerides 213 mg/dl (30-150); VLDL Cholesterol 43 mg/dL (0-40)
[2022-09-14 13:53] LABS: Direct LDL Cholesterol 70.81 mg/dL (100-129)
[2022-09-14 13:58] LABS: 25-OH Vitamin D, Total 32.8 ng/mL (30-100)
[2022-09-14 14:12] LABS: Thyroid Stimulating Hormone 3.19 uIU/mL (0.465-4.68)
[2022-09-14 14:22] LABS: Ferritin 96.7 ng/ml (11.1-264)
[2022-09-14 14:30] LABS: Vitamin B12 698 pg/mL (239-931)
== END ==
PROVIDERS: PCP Physician Assistant; Visit Provider Physician Assistant
DX: N39.0 Urinary tract infection, site not specified (principal); E78.5 Hyperlipidemia, unspecified; F31.9 Bipolar disorder, unspecified; N18.4 Chronic kidney disease, stage 4 (severe); I95.9 Hypotension, unspecified; B96.20 Unspecified Escherichia coli [E. coli] as the cause of diseases classified elsewhere
CPT/HCPCS: 80053; 80061; 82306; 82607; 82728; 83735; 84443; 85025; 87086; 87088; 87186

== ENCOUNTER → 2022-12-29 15:57 | Outpatient (CLI) | payer MEDICARE, SELFPAY ==
[2022-12-29 13:44] LABS: Basophils % 0.4 % (0.1-2.0); Eosinophils # 0.2 K/mm3 (0.0-0.4); Eosinophils % 3.4 % (0.1-12.0); Hematocrit 38.1 % (37.0-47.0); Hemoglobin 12.1 g/dL (12.2-16.2); Lymphocytes # 1.1 K/mm3 (0.7-4.5); Lymphocytes % 15.9 % (10-50); Mean Corpuscular HGB Conc 31.7 g/dL (31.8-35.4); Mean Corpuscular Hemoglobin 31.5 pg (27.0-31.2); Mean Corpuscular Volume 99.4 fl (81-99); Mean Platelet Volume 10.3 fl (7.4-10.4); Monocytes # 0.8 K/mm3 (0.1-1.0); Monocytes % 10.7 % (1.7-9.3); Neutrophils # 4.9 K/mm3 (1.8-7.8); Neutrophils % 69.6 % (37.0-80.0); Platelet Count 223 K/mm3 (142-424); Red Blood Count 3.83 M/mm3 (4.20-5.40); Red Cell Distribution Width 14.2 % (11.5-17.5); White Blood Count 7.1 K/mm3 (4.8-10.8)
[2022-12-29 13:52] LABS: Alanine Aminotransferase 16 U/L (12-78); Albumin Level 3.7 g/dl (3.5-5.0); Albumin/Globulin Ratio 1.3 (1.1-1.8); Alkaline Phosphatase 112 U/L (38-126); Anion Gap 17.9 mEq/L (5-15); Aspartate Amino Transferase 22 U/L (14-36); Blood Urea Nitrogen 33 mg/dl (7-17); Calcium 9.2 mg/dl (8.4-10.2); Carbon Dioxide 20 mmol/L (22.0-30.0); Chloride 112 mmol/L (98-107); Chol/HDL Ratio 4.2 (1-3.5); Cholesterol 179 mg/dl (140-200); Estimated Glomerular Filt Rate 20 ml/min (>60); GFR (African American) 25 ML/MIN (>60); Globulin 2.9 g/dL (1.3-3.2); Glucose 103 mg/dl (74-100); HDL Cholesterol 43 mg/dl (40-60); Potassium 4.9 mmoL/L (3.5-5.1); Sodium 145 mmol/L (136-145); Total Protein,Serum 6.6 g/dl (6.3-8.2); Triglycerides 141 mg/dl (30-150); VLDL Cholesterol 28 mg/dL (0-40)
[2022-12-29 13:54] LABS: Bilirubin,Total 0.1 mg/dl (0.2-1.3)
[2022-12-29 14:04] LABS: Direct LDL Cholesterol 91.02 mg/dL (100-129)
[2022-12-29 14:07] LABS: 25-OH Vitamin D, Total 33.8 ng/mL (30-100)
[2022-12-29 14:25] LABS: Thyroid Stimulating Hormone 2.56 uIU/mL (0.465-4.68)
[2022-12-29 14:43] LABS: Vitamin B12 901 pg/mL (239-931)
== END ==
PROVIDERS: PCP Physician Assistant; Visit Provider Physician Assistant
DX: E03.9 Hypothyroidism, unspecified (principal); E78.5 Hyperlipidemia, unspecified; F31.9 Bipolar disorder, unspecified; I12.9 Hypertensive chronic kidney disease with stage 1 through stage 4 chronic kidney disease, or unspecified chronic kidney disease; Z68.23 Body mass index [BMI] 23.0-23.9, adult; N18.4 Chronic kidney disease, stage 4 (severe)
CPT/HCPCS: 80053; 80061; 80165; 82306; 82607; 84443; 85025

== ENCOUNTER → 2023-03-31 10:01 | Outpatient (CLI) | payer MEDICARE, SELFPAY ==
[2023-03-31 10:24] LABS: Basophils % 0.4 % (0.1-2.0); Eosinophils # 0.3 K/mm3 (0.0-0.4); Eosinophils % 4.3 % (0.1-12.0); Hematocrit 38.1 % (37.0-47.0); Hemoglobin 12.8 g/dL (12.2-16.2); Lymphocytes # 1.4 K/mm3 (0.7-4.5); Lymphocytes % 21.6 % (10-50); Mean Corpuscular HGB Conc 33.6 g/dL (31.8-35.4); Mean Corpuscular Hemoglobin 32.9 pg (27.0-31.2); Mean Platelet Volume 9.6 fl (7.4-10.4); Monocytes # 0.7 K/mm3 (0.1-1.0); Monocytes % 10.9 % (1.7-9.3); Neutrophils # 4.1 K/mm3 (1.8-7.8); Neutrophils % 62.8 % (37.0-80.0); Platelet Count 240 K/mm3 (142-424); Red Blood Count 3.88 M/mm3 (4.20-5.40); Red Cell Distribution Width 12.9 % (11.5-17.5); White Blood Count 6.5 K/mm3 (4.8-10.8)
[2023-03-31 10:39] LABS: Chloride 109 mmol/L (98-107)
[2023-03-31 10:40] LABS: Potassium 4.4 mmoL/L (3.5-5.1); Sodium 139 mmol/L (136-145)
[2023-03-31 10:42] LABS: Alanine Aminotransferase 18 U/L (12-78); Alkaline Phosphatase 93 U/L (38-126); Anion Gap 12.4 mEq/L (5-15); Aspartate Amino Transferase 25 U/L (14-36); Bilirubin,Total 0.3 mg/dl (0.2-1.3); Blood Urea Nitrogen 36 mg/dl (7-17); Carbon Dioxide 22 mmol/L (22.0-30.0); Estimated Glomerular Filt Rate 20 ml/min (>60); GFR (African American) 25 ML/MIN (>60)
[2023-03-31 10:43] LABS: Albumin Level 3.6 g/dl (3.5-5.0); Albumin/Globulin Ratio 1.5 (1.1-1.8); Calcium 8.9 mg/dl (8.4-10.2); Globulin 2.4 g/dL (1.3-3.2); Glucose 117 mg/dl (74-100)
[2023-03-31 10:52] LABS: Valproic Acid, (Depakene) 42.8 ug/ml (50-100)
== END ==
PROVIDERS: PCP Internal Medicine Adolescent Medicine; Visit Provider Internal Medicine Adolescent Medicine
DX: I10 Essential (primary) hypertension (principal); E03.9 Hypothyroidism, unspecified; E78.5 Hyperlipidemia, unspecified; G24.01 Drug induced subacute dyskinesia; N18.4 Chronic kidney disease, stage 4 (severe); Z51.81 Encounter for therapeutic drug level monitoring
CPT/HCPCS: 80053; 80164; 84443; 85025

== ENCOUNTER 2023-05-04 21:37 | Outpatient (CLI) | payer MEDICARE, MEDICAID, SELFPAY ==
[2023-05-04 22:02] LABS: Microscopic, Urine URINE MICROSCOPIC (MICROSCOPIC)
[2023-05-04 22:07] LABS: Appearance,Urine CLEAR (Clear); Bilirubin,Urine Negative (Negative); Blood, Urine Negative (Negative); Color,Urine YELLOW (Yellow); Glucose,Urine (UA) Negative (Negative); Ketones,Urine Negative (Negative); Leukocyte Esterase,Urine Negative (Negative); Nitrate,Urine POSITIVE (Negative); Protein,Urine Negative (Negative); Urobilinogen,Urine 0.2 EU/dl (0.2)
[2023-05-04 22:24] LABS: WBC,Urine Occasional #/hpf (0-3)
[2023-05-04 22:25] LABS: Bacteria,Urine 1+ /lpf
== END 2023-05-04 23:59 ==
PROVIDERS: Nurse Practitioner Family; PCP Internal Medicine Adolescent Medicine; Visit Provider Internal Medicine Adolescent Medicine
DX: R41.0 Disorientation, unspecified (principal); R39.81 Functional urinary incontinence; W19.XXXD Unspecified fall, subsequent encounter
CPT/HCPCS: 81001

== ENCOUNTER 2023-08-17 11:31 | Outpatient (CLI) | payer MEDICARE, MEDICAID, SELFPAY ==
[2023-08-17 12:07] LABS: Microscopic, Urine URINE MICROSCOPIC (MICROSCOPIC)
[2023-08-17 12:10] LABS: Appearance,Urine CLEAR (Clear); Blood, Urine Negative (Negative); Color,Urine YELLOW (Yellow); Glucose,Urine (UA) Negative (Negative); Ketones,Urine Negative (Negative); Leukocyte Esterase,Urine Negative (Negative); Nitrate,Urine Negative (Negative); PH,Urine 5.5 (5.0-8.5); Protein,Urine 1+ (Negative); Specific Gravity, Urine 1.025 (1.005-1.030); Urobilinogen,Urine 0.2 EU/dl (0.2)
[2023-08-17 12:12] LABS: Bilirubin,Urine 1+ (Negative)
[2023-08-17 12:41] LABS: Bacteria,Urine Trace /lpf; Squamous Epithelial Cell,Urine Occasional #/hpf (0-5)
== END 2023-08-17 23:59 | disposition home or self-care (01) ==
PROVIDERS: PCP Internal Medicine Adolescent Medicine; Visit Provider Internal Medicine Adolescent Medicine
DX: R82.998 Other abnormal findings in urine (principal); R41.0 Disorientation, unspecified; R27.8 Other lack of coordination
CPT/HCPCS: 81001; 87086

== ENCOUNTER 2023-10-26 21:33 | Observation (INO) | payer MEDICARE, MEDICAID, SELFPAY ==
--- NOTE | 2023-10-26 21:23 | ECG_ITS ---
APPROVED REPORT Exam: Resting ECG HR:85 bpm ECG Measurements Heart Rate 85 AXES [place] 186 P 45 QRSd 140 QRS -52 QT 399 T 78 QTc 441 Conclusion Sinus rhythm, right bundle branch block No obvious ischemic change, but artifactual baseline results in largely nondiagnostic exam Electronically signed by : CHAMP BOX, 10/27/2023 22:17:08
--- NOTE | 2023-10-26 21:24 | CT_ITS ---
PROCEDURE INFORMATION: Exam: CT Head Without Contrast Exam date and time: 10/26/2023 9:41 PM Age: 83 years old Clinical indication: Altered mental status/memory loss; Additional info: Near syncope after valsala, R/O bleed TECHNIQUE: Imaging protocol: Computed tomography of the head without contrast. Radiation optimization: All CT scans at this facility use at least one of these dose optimization techniques: automated exposure control; mA and/or kV adjustment per patient size (includes targeted exams where dose is matched to clinical indication); or iterative reconstruction. COMPARISON: CT HEAD/BRAIN WO CON 06/13/2022 10:17 AM FINDINGS: Brain: No evidence for intracranial hemorrhage, mass lesions or acute stroke. Intracranial vascular calcifications. Mild small vessel ischemic change in the periventricular white matter. Cerebral ventricles: No ventriculomegaly. Pituitary gland and sella: Negative Paranasal sinuses: Visualized sinuses are unremarkable. No fluid levels. Mastoid air cells: Visualized mastoid air cells are well aerated. Orbital cavities: Bilateral cataract extractions. Parotid and submandibular glands: Negative Bones: Unremarkable. No acute fracture. Soft tissues: Unremarkable. Vasculature: Negative. Other findings: Mild generalized atrophy. IMPRESSION: 1. No evidence for intracranial hemorrhage, mass lesions or acute stroke. 2. Intracranial vascular calcifications. 3. Mild generalized atrophy. 4. Mild small vessel ischemic change in the periventricular white matter.
--- NOTE | 2023-10-26 21:24 | XR_ITS ---
PROCEDURE INFORMATION: Exam: XR Chest Exam date and time: 10/26/2023 9:30 PM Age: 83 years old Clinical indication: Other: AMS; Additional info: AMS, near syncope TECHNIQUE: Imaging protocol: Radiologic exam of the chest. Views: 1 view. COMPARISON: CR XR CHEST PORTABLE 06/13/2022 9:30 AM FINDINGS: Lungs: Normal pulmonary vessels. No focal infiltrates. Calcified granuloma left lower lobe. Pleural spaces: Unremarkable. No pleural effusion. No pneumothorax. Heart/Mediastinum: Mild cardiomegaly. Vasculature: Ectatic aorta. Bones/joints: Unremarkable. Other findings: Gaseous distension of the stomach. IMPRESSION: No acute cardiopulmonary disease.
--- NOTE | 2023-10-26 21:26 | ED_ITS ---
Discharge Plan Disposition Patient Disposition: Admitted Condition: Fair Chief Complaint: Dizziness Clinical Impressions Clinical Impression: Syncopal episodes, CHF (congestive heart failure), CHF exacerbation Discharge ED Provider: Efrain Soto HPI General Chief Complaint: Dizziness Stated Complaint: syncope Time Seen by Provider: 10/26/23 21:36 History of Present Illness HPI narrative: Please note that above description of symptoms, in this electronic medical record under categorization of recalled from ER triage doctor by RN are reflective of an initial nursing assessment, however, is not reflective of my full history and physical exam that was personally taken and clarified. Consequentially, this preceding description of symptoms, which may include the patient's categorized chief complaint in the EMR, do not reflect my personal clinical impression, and the ultimate description of history of present illness and patient stated complaints should be deferred to this section of the note. Unless stated otherwise or congruent with this section of the note, additional signs, symptoms, or incongruence should be interpreted as inaccurate with my clinical impression. Related Data Home Medications Medication Instructions Recorded Confirmed divalproex 500 mg tablet,extended 250 mg PO DAILY mood 10/26/23 10/26/23 release 24 hr (Depakote ER) ropinirole 1 mg tablet 0.25 mg PO HS 10/26/23 10/26/23 Previous Rx's Medication Instructions Recorded atorvastatin 40 mg tablet 40 mg PO HS Cholesterol #90 tabs 09/14/22 levothyroxine 75 mcg tablet 75 mcg PO DAILY hypothyroidism #90 09/14/22 tabs ziprasidone HCl 40 mg capsule 40 mg PO DAILY Depression #90 caps 09/14/22 lisinopril 10 1 tab PO DAILY #90 tabs 11/16/22 mg-hydrochlorothiazide 12.5 mg tablet Allergies Allergy/AdvReac Type Severity Reaction Status Date / Time Iodine and Iodide Containing Allergy Unknown Unknown Verified 12/29/22 11:[address] [facility] Disclaimer: The information contained in this section may have been updated after the patient was seen, as this information can be updated by other users. Medical History Abnormal electrocardiogram [ECG] [EKG] ADAMA (acute kidney injury) Bipolar disorder Hypertension Hypothyroidism Incontinence in female Tardive dyskinesia Unsteady gait Surgical History History of kidney surgery Family History Other Family history of cancer History of kidney problems Social History Smoking Status: Never smoker alcohol intake: never substance use type: denies use current occupational status: retired Travel in the last 8 weeks: None household members: none housing: house ROS Obtained: Yes All systems reviewed & no additional complaints except as documented Physical Exam General General appearance: alert and other (Pale, chronically ill, in no acute distress) Head Head exam: atraumatic and normocephalic Eye Eye exam: Present normal appearance, PERRL and EOMI ENT ENT exam: Present mucous membranes dry Neck Neck exam: Present normal inspection, full ROM and trachea midline Chest Chest inspection: Present normal inspection and symmetric chest wall rise Respiratory Respiratory exam: Present normal lung sounds bilaterally; Absent respiratory distress, wheezes, stridor, accessory muscle use or prolonged expiratory phase Cardiovascular Cardiovascular exam: Present regular rate, normal rhythm and other (Pulses equal symmetric in upper and lower extremities) Abdominal Exam Abdominal exam: Present soft; Absent distention, tenderness, guarding, rebound or pulsatile mass Extremities Exam Extremities exam: Absent edema Neurological Exam Neurological exam: Present alert, oriented X3, CN II-XII intact and other (Patient tremulous, NIH 0); Absent motor sensory deficit Skin Skin exam: Present warm, dry and pallor; Absent diaphoresis or erythema HEART Score HEART Score HEART Score assessment performed?: Yes HEART Score: 6 Critical Care Critical Care Time Critical Care Time: No Medical Decision Making Medical Records Medical records reviewed: Yes I reviewed the patient's medical records. Casa Inquiry Pt receiving controlled substance: No Casa was queried for this patient: No Vital Signs Vital Signs: 10/26/23 21:33 10/26/23 23:07 Temperature 98.0 F Temperature Source Axillary Pulse Rate 81 Pulse Rate [Right Radial] 86 Respiratory Rate 18 Blood Pressure 171/82 H Blood Pressure [Right Arm] 152/98 H Blood Pressure Mean 141 Blood Pressure Mean [Right Arm] 116 Blood Pressure Source [Right Arm] Automatic Cuff Blood Pressure Position [Right Arm] Supine 02 Sat by Pulse Oximetry 95 96 Oxygen Delivery Method Room Air Room Air Lab Data Labs: Lab Results 10/26/23 21:24: VBG pH 7.31, VBG pCO2 37.5, VBG pO2 43.4 H, VBG HCO3 18.5 L, VBG Total CO2 19.7 L, VBG O2 Saturation 75.1 H, VBG Base Excess -7.7 L, VBG Lactic Acid 3.1 H 10/26/23 21:34: Sodium 142, Potassium 4.6, Chloride 114 H, Carbon Dioxide 17 L, Anion Gap 15.6 H, BUN 26 H, Creatinine 2.00 H, Estimated Creat Clear 19, E stimated GFR 24 L, Est GFR ( Amer) 29 L, Glucose 162 H, Calcium 9.3, Magnesium 1.6, Total Bilirubin 0.5, AST 31, ALT 17, Alkaline Phosphatase 75, Troponin I 0.01, NT-Pro-B Natriuret Pep 4750 H, Total Protein 7.5, Albumin 3.9, Globulin 3.6 H, Albumin/Globulin Ratio 1.1 10/26/23 21:54: WBC 11.4 H, RBC 3.64 L, Hgb 11.5 L, Hct 35.1 L, MCV 96.5, MCH 31.6 H, MCHC 32.8, RDW 14.3, Plt Count 318, MPV 9.4, Neut % (Auto) 82.4 H, Lymph % (Auto) 9.4 L, [place] % (Auto) 7.1, Eos % (Auto) 0.8, Baso % (Auto) 0.3, Neut # (Auto) 9.4 H, Lymph # (Auto) 1.1, [place] # (Auto) 0.8, Eos # (Auto) 0.1, Baso # (Auto) 0.0, Total Valproic Acid 39.2 L 10/26/23 21:54 10/26/23 21:34 Response Orders (Tests/Meds): ED MEDICATIONS Generic Name Dose Route Start Last Admin Trade Name Freq PRN Reason Stop Dose Admin Piperacillin Sod/Tazobactam 50 mls @ 100 mls/hr 10/26/23 23:00 10/26/23 23:11 Sod 3.375 gm/ Sodium Chloride IV 11/05/23 22:59 100 mls/hr Q6H PETE Administration Vancomycin/PEG/NADA/Lysine/Water 1.25 gm in 250 mls @ 125 mls/hr 10/26/23 23:15 Vancomycin 1.25gm/250ml (Peg) Premix IV 10/27/23 01:14 ONCE ONE Miscellaneous 1 each 10/26/23 23:00 Vancomycin Consult Request NOTAPPLIC 11/25/23 22:59 CONSULT [facility]Y [facility] Discontinued Medications Generic Name Dose Route Start Last Admin Trade Name Maral PRN Reason Stop Dose Admin Lactated Ringer's 1,000 mls @ 999 mls/hr 10/26/23 21:24 10/26/23 22:01 Lactated Ringer's 1000 Ml Bag IV 10/26/23 22:24 999 mls/hr .Q1H1M ONE Administration ORDERS Category Date Time Status CT head/brain wo con Stat Cat Scan 10/26/23 21:24 Completed XR chest portable Stat Exams 10/26/23 21:24 Completed Complete Blood Count Auto Diff Stat Lab 10/26/23 21:54 Completed Comprehensive Metabolic Panel Stat Lab 10/26/23 21:34 Completed Magnesium Stat Lab 10/26/23 21:34 Completed NT Pro Brain Natriuretic Pep. Stat Lab 10/26/23 21:34 Completed Troponin I Q3H Lab 10/27/23 00:30 Ordered Troponin I Q3H Lab 10/27/23 03:30 Ordered Troponin I Stat Lab 10/26/23 21:34 Completed Valproic Acid, (Depakene) Routine Lab 10/26/23 21:54 Completed Blood Culture Stat Micro 10/26/23 23:00 Received VBG [Venous Blood Gas] Stat RT 10/26/23 21:24 Completed MDM Narrative Medical Decision Narrative: Patient is 83 years old history of hypertension, hyperlipidemia, CHF, Parkinson's, bipolar disorder, presenting with near syncope. Per patient, she was at [employer] eating ice cream just before arrival. Shortly after finishing, felt like she had to have a bowel movement, bear down to try to have a bowel movement. Shortly thereafter, became dizzy and nearly passed out. She remembers the entire episode. Family and bystanders state that she turned blue, but did not lose muscle tone. EMS was contacted, family concern for stroke. On arrival, EMS states that patient's glucose was in the 160s, well-appearing, no cyanosis, but she was diaphoretic. Patient denying any complaints to them. She was brought to the ED for further evaluation. On arrival to the emergency department, patient still without complaints. Denies headache, vision changes, chest pain, shortness of breath, numbness, weakness, tingling anywhere, abdominal pain, dysuria, hematuria, diarrhea, constipation, or any other complaints. She states that she thinks she did soil herself, or at least tried to while she was sitting at [employer]. History was obtained via conversation with patient, EMS. On arrival, patient hemodynamically stable, alert, oriented x4, appropriate, GCS 15, moving all extremities spontaneously, pupils equal and reactive to light. Full physical exam performed and significant for chronically ill-appearing woman who is in no acute distress. She is nontachycardic, but she is pale. No cyanosis, no diaphoresis. Cardiac exam within normal limits without lower extremity edema, pulses equal and symmetric. Patient's lungs are clear to auscultation anterior and posteriorly. Differential includes vasovagal presyncope, orthostatic presyncope, ACS, [place], PUD, gastritis, intracranial hemorrhage, among others. Patient was given LR 1 L, warm blankets for symptomatic management and correction of underlying abnormalities. Independent interpretation of EKG shows sinus rhythm about 85 bpm. RI 186, QRS 140, QTc 441. Wandering and artifactual baseline, largely nondiagnostic exam other than this. This is likely secondary to patient's tremor. No obvious ischemic change. Workup independently interpreted and significant for mild leukocytosis with neutrophilia. Gas nonactionable, but lactic acid is 3.1. Patient has stable CKD with creatinine 2.0. LFTs not normal, BNP is elevated at 4700, this is new for patient. Chest x-ray with no acute cardiopulmonary airspace disease. See radiology read for full review of final results. Patient placed on continuous cardiac monitoring and continuous pulse ox with initial blood pressure 152/98, heart rate 86, saturation 95 on room air. On reevaluation, patient states that she has contrast allergy, does not want CT of her chest.. CT angio of the chest to evaluate for pulmonary embolus was considered because patient has newly elevated BNP, syncopal episode. Given patient's allergy and preference, this was not obtained. Hospital medicine was contacted and case was discussed at length. Recommended empiric antibiotics and admission. These were ordered. Blood cultures also ordered. Because patient high risk for clinical decompensation, deemed appropriate for inpatient admission. Results were relayed to patient who voiced understanding and patient was agreeable to inpatient admission and management. Patient was admitted to the hospital for further definitive management. [employer] disclaimer Much of this encounter note is an electronic ranch hand livestock spoken language to printed text. Electronic ranch hand livestock of the spoken language may permit errors. Although I have reviewed the note, some errors may still exist.
[2023-10-26 21:33] VITALS: BP 152/98; PULSE 86; RESP 18; TEMP 36.7; O2SAT 95; BMI 22.1
[2023-10-26 21:51] LABS: Chloride 114 mmol/L (98-107)
[2023-10-26 21:52] LABS: Potassium 4.6 mmoL/L (3.5-5.1); Sodium 142 mmol/L (136-145)
[2023-10-26 21:54] LABS: Alanine Aminotransferase 17 U/L (12-78); Aspartate Amino Transferase 31 U/L (14-36); Blood Urea Nitrogen 26 mg/dl (7-17); Creatinine Clearance Estimated 19 mL/min (50-200); Estimated Glomerular Filt Rate 24 ml/min (>60); GFR (African American) 29 ML/MIN (>60)
[2023-10-26 21:55] LABS: Albumin Level 3.9 g/dl (3.5-5.0); Albumin/Globulin Ratio 1.1 (1.1-1.8); Alkaline Phosphatase 75 U/L (38-126); Anion Gap 15.6 mEq/L (5-15); Bilirubin,Total 0.5 mg/dl (0.2-1.3); Calcium 9.3 mg/dl (8.4-10.2); Carbon Dioxide 17 mmol/L (22.0-30.0); Globulin 3.6 g/dL (1.3-3.2); Glucose 162 mg/dl (74-100); Magnesium 1.6 mg/dl (1.6-2.3); Total Protein,Serum 7.5 g/dl (6.3-8.2)
[2023-10-26] MEDS: LACTATED RINGERS 1000ML 1,000 ML 999 ML IV (22:01)
[2023-10-26 22:03] LABS: Basophils % 0.3 % (0.1-2.0); Eosinophils # 0.1 K/mm3 (0.0-0.4); Eosinophils % 0.8 % (0.1-12.0); Hematocrit 35.1 % (37.0-47.0); Hemoglobin 11.5 g/dL (12.2-16.2); Lymphocytes # 1.1 K/mm3 (0.7-4.5); Lymphocytes % 9.4 % (10-50); Mean Corpuscular HGB Conc 32.8 g/dL (31.8-35.4); Mean Corpuscular Hemoglobin 31.6 pg (27.0-31.2); Mean Corpuscular Volume 96.5 fl (81-99); Mean Platelet Volume 9.4 fl (7.4-10.4); Monocytes # 0.8 K/mm3 (0.1-1.0); Monocytes % 7.1 % (1.7-9.3); Neutrophils # 9.4 K/mm3 (1.8-7.8); Neutrophils % 82.4 % (37.0-80.0); Platelet Count 318 K/mm3 (142-424); Red Blood Count 3.64 M/mm3 (4.20-5.40); Red Cell Distribution Width 14.3 % (11.5-17.5); White Blood Count 11.4 K/mm3 (4.8-10.8)
[2023-10-26 22:04] LABS: NT Pro Brain Natriuretic Pep. 4750 pg/mL (0-450)
[2023-10-26 22:05] LABS: Lactate Venous 3.1 mmol/L (0.4-2.0); VBG Base Excess -7.7 mmol/L (-2.4-2.3); VBG HCO3 18.5 mmol/L (23-30); VBG Oxygen Saturation 75.1 % (50-70); VBG PCO2 37.5 mmol/L (35-51); VBG PH 7.31 mmol/L (7.31-7.41); VBG PO2 43.4 mmol/L (28-40); VBG Total CO2 19.7 mmol/L (23-27)
[2023-10-26 22:07] LABS: Troponin I 0.01 ng/ml (0.00-0.034)
[2023-10-26 22:23] LABS: Valproic Acid, (Depakene) 39.2 ug/ml (50-100)
--- NOTE | 2023-10-26 23:04 | PC.NURSE ---
Collected 2 sets of blood cultures on patient and sent to lab.
[2023-10-26 23:07] VITALS: BP 171/82; PULSE 81; O2SAT 96
--- NOTE | 2023-10-26 23:09 | PC.NURSE ---
Repot given to CHRISSY Macias on second floor
[2023-10-26] MEDS: PIPERACILLIN/TAZO 3.375 GM in 0.9 % SODIUM CHLORIDE 50 ML IV (23:11)
--- NOTE | 2023-10-26 23:11 | PC.NURSE ---
Spoke with carlo at [facility] and gave report. Also called Dante Cazares and gave update on patient being admitted.
[2023-10-26 23:15] VITALS: BP 171/82; PULSE 84; RESP 18; TEMP 36.6; O2SAT 96
[2023-10-26] MEDS: VANCOMYCIN CONSULT REQUEST 1 EACH NOTAPPLIC (23:17)
--- NOTE | 2023-10-26 23:20 | PC.NURSE ---
pt arrived to floor at this time
[2023-10-26] MEDS: VANCOMYCIN/WATER FOR INJ (PEG) 1.25 GM/250 ML PIGGYBACK IV (23:28)
[2023-10-27] VITALS (11 sets, daily range): BP systolic 140–206; BP diastolic 73–103; PULSE 60–88; RESP 16–20; TEMP 36.5–36.7; O2SAT 96–99; BMI 20.7
[2023-10-27 00:30] LABS: Reflex Lactic Add Lactic Reflex
[2023-10-27 00:46] LABS: Lactic Acid Follow Up (RFLX 1) 2.1 mmol/L (0.7-2.1)
[2023-10-27 00:54] LABS: Troponin I 0.03 ng/ml (0.00-0.034)
--- NOTE | 2023-10-27 01:41 | PC.NURSE ---
Patient med rec is completed and DNR form was signed by patient. Geraldine was paged and I updated him about patient's status [id number] at this time.
--- NOTE | 2023-10-27 01:42 | P.HP_ITS ---
History of Present Illness *Admission Date: 10/27/23 *Reason for visit:: Dizziness *History of present illness: Patient is 83 years old history of hypertension, hyperlipidemia, CHF, Parkinson's, bipolar disorder, presenting with near syncope. Patient is a poor historian and majority of history is provided by ER physician Reportedly she was at [facility] eating ice cream just before arrival. Shortly after finishing, felt like she had to have a bowel movement, bear down to try to have a bowel movement. Shortly thereafter, became dizzy and nearly passed out. She remembers the entire episode. Family and bystanders state that she turned blue, but did not lose muscle tone. EMS was contacted, family concern for stroke. On arrival, EMS states that patient's glucose was in the 160s, well- appearing, no cyanosis, but she was diaphoretic. Patient denying any complaints to them. She was brought to the ED for further evaluation. On arrival to the emergency department, patient still without complaints. Denies headache, vision changes, chest pain, shortness of breath, numbness, weakness, tingling anywhere, abdominal pain, dysuria, hematuria, diarrhea, constipation, or any other complaints. She states that she thinks she did soil herself, or at least tried to while she was sitting at [facility]. In ER patient hemodynamically stable, alert, oriented x4, appropriate, GCS 15, moving all extremities spontaneously, pupils equal and reactive to light. Remaining exam unremarkable Independent interpretation of EKG shows No obvious ischemic change. Workup independently interpreted and significant for mild leukocytosis with neutrophilia. Gas nonactionable, but lactic acid is 3.1. Patient has stable CKD with creatinine 2.0. LFTs not normal, BNP is elevated at 4700, this is new for patient. Chest x-ray with no acute cardiopulmonary airspace disease. Discussed CT PE with ER provider and patient states that she has contrast allergy, does not want CT of her chest.. CT angio of the chest to evaluate for pulmonary embolus was considered because patient has newly elevated BNP, syncopal episode and was not obtained. Patient has no acute concerns or complaints at this time. [facility] Disclaimer: The information contained in this section may have been updated after the patient was seen, as this information can be updated by other users. Medical History Abnormal electrocardiogram [ECG] [EKG] ADAMA (acute kidney injury) Bipolar disorder Hypertension Hypothyroidism Incontinence in female Tardive dyskinesia Unsteady gait Surgical History History of kidney surgery Family History Other Family history of cancer History of kidney problems Social History (Updated 10/27/23 @ 00:18 by Colleen Bhat RN) Smoking Status: Former smoker how long ago did patient quit smokin years ago alcohol intake: never substance use type: denies use current occupational status: retired Travel in the last 8 weeks: None household members: none housing: house Meds Home Medications and Allergies Home Medications Medication Instructions Recorded Confirmed Type atorvastatin 40 mg tablet 40 mg PO HS Cholesterol #90 tabs 09/14/22 10/26/23 Rx levothyroxine 75 mcg tablet 75 mcg PO DAILY hypothyroidism #90 09/14/22 10/26/23 Rx tabs ziprasidone HCl 40 mg capsule 40 mg PO DAILY Depression #90 caps 09/14/22 10/26/23 Rx lisinopril 10 1 tab PO DAILY #90 tabs 11/16/22 10/26/23 Rx mg-hydrochlorothiazide 12.5 mg tablet divalproex 500 mg tablet,extended 250 mg PO DAILY mood 10/26/23 10/26/23 History release 24 hr (Depakote ER) ropinirole 1 mg tablet 0.25 mg PO HS 10/26/23 10/26/23 History latanoprost 0.005 % eye drops 1 drp Eye-Both HS Occular 10/27/23 10/27/23 History Hypertension New Prescriptions to Start Prescriptions: Allergies Allergy/AdvReac Type Severity Reaction Status Date / Time Iodine and Iodide Containing Allergy Intermediate Hives Verified 10/26/23 23:47 Produc Exam Data for Last 24 hours Vital signs and Labs for Last 24 Hours: Temp Pulse Resp BP Pulse Ox O2 Del Method 98.0 F 86 18 171/82 H 97 Room Air 10/27/23 00:00 10/27/23 01:00 10/27/23 00:00 10/27/23 00:00 10/27/23 01:00 10/27/23 01:00 Laboratory Results - last 24 hr 10/26/23 21:24: VBG pH 7.31, VBG pCO2 37.5, VBG pO2 43.4 H, VBG HCO3 18.5 L, VBG Total CO2 19.7 L, VBG O2 Saturation 75.1 H, VBG Base Excess -7.7 L, VBG Lactic Acid 3.1 H 10/26/23 21:34: Sodium 142, Potassium 4.6, Chloride 114 H, Carbon Dioxide 17 L, Anion Gap 15.6 H, BUN 26 H, Creatinine 2.00 H, Estimated Creat Clear 19, Estimated GFR 24 L, Est GFR ( Amer) 29 L, Glucose 162 H, Calcium 9.3, Magnesium 1.6, Total Bilirubin 0.5, AST 31, ALT 17, Alkaline Phosphatase 75, Troponin I 0.01, NT-Pro-B Natriuret Pep 4750 H, Total Protein 7.5, Albumin 3.9, Globulin 3.6 H, Albumin/Globulin Ratio 1.1 10/26/23 21:54: WBC 11.4 H, RBC 3.64 L, Hgb 11.5 L, Hct 35.1 L, MCV 96.5, MCH 31.6 H, MCHC 32.8, RDW 14.3, Plt Count 318, MPV 9.4, Neut % (Auto) 82.4 H, Lymph % (Auto) 9.4 L, [place] % (Auto) 7.1, Eos % (Auto) 0.8, Baso % (Auto) 0.3, Neut # (Auto) 9.4 H, Lymph # (Auto) 1.1, [place] # (Auto) 0.8, Eos # (Auto) 0.1, Baso # (Auto) 0.0, Total Valproic Acid 39.2 L 10/27/23 00:26: Lactate 2.1, Troponin I 0.03 I & O for Last 24 hours: Intake & Output 10/24/23 10/25/23 10/26/23 10/27/23 23:59 23:59 23:59 23:59 Intake Total 0 / 0 Balance 0 / 0 Weight 56.699 kg Constitutional Constitutional: no acute distress *Routine HEENT Exam Head: Present normocephalic Eye: Present EOMI and PERRL ENT: Present mucous membranes moist *Routine Neck Exam Neck: Present supple; Absent lymphadenopathy *Routine Respiratory Exam Respiratory: Present CTA bilaterally *Routine Cardiovascular Exam Cardiovascular: Present RRR *Routine Abdominal Exam Abdominal: Present soft and normoactive bowel sounds; Absent tenderness *Routine Rectal Exam Rectal:: deferred *Routine Genitalia Exam Genitalia:: deferred *Routine Extremities Exam Extremities: Absent cyanosis, clubbing or edema *Routine Skin Exam Skin: Present warm; Absent rash *Routine Neurological Exam Neurological: Present alert and oriented X3 Assessment and Plan *Assessment and plan (1) Syncope: Status: Acute Category: Medical Code(s): R55 - Syncope and collapse (2) Urinary Incontinence: Status: Chronic Category: Medical Code(s): R32 - Unspecified urinary incontinence (3) Parkinsonian features: Status: Acute Category: Medical Code(s): R25.9 - Unspecified abnormal involuntary movements (4) Hyperlipidemia: Status: Chronic Qualifiers: Hyperlipidemia type: unspecified Qualified Code(s): E78.5 - H yperlipidemia, unspecified Category: Medical Code(s): E78.5 - Hyperlipidemia, unspecified (5) Stage 4 chronic kidney disease: Status: Acute Category: Medical Code(s): N18.4 - Chronic kidney disease, stage 4 (severe) (6) Congestive heart failure: Status: Acute Category: Medical Code(s): I50.9 - Heart failure, unspecified Plan 83-year-old presenting after syncopal episode. At this time differential includes vasovagal presyncope, orthostatic. Brain natruretic peptide elevated, will follow-up echo. Will continue further evaluation particularly looking for hemodynamic compromise such as with arrhythmia or structural abnormalities with echo. Syncope -Cardiac monitoring -Discharge 14-day ZIO -Echo ordered -Would prefer to get a CT PE, however patient declined Leukocytosis -Uncertain etiology at this time, no source of infection identified. Possibly acute stress response -Received empiric antibiotics in the ER, follow-up cultures Normocytic anemia -Monitor -Iron studies Anion gap metabolic acidosis -Likely lactate, received 1 L IVF -Monitor CKD -Monitor renal parameters and urine output -Strict I's and O's, pure wick in place HTN - resume home meds
--- NOTE | 2023-10-27 01:54 | CA_ITS ---
APPROVED REPORT EXAM: Comprehensive 2D, Doppler, and color-flow Echocardiogram Microfilm Machine Operator: PATRICIA Esqueda, RVS Ht: 5 ft 3 in Wt: 125lbs BSA: 1.58 BP: 171/82 mmHg Indications: CHF, Syncope, Abn EKG, CKD IV, Parkinson's, Hypothyroidism 2D Dimensions LA Volume 37.00 mL LA Volume Index 23.27 mL/m2 (M/F) 16-34 EF AP4 68.50 % GL Strain -16.0 % M-Mode Dimensions RVDd 1.15 cm (0.9-2.6) LA Diam 3.59 cm (1.9-4.0) LVDd 4.33 cm (3.5-5.7) LVDs 3.29 cm (3.5-5.7) IVSd 1.07 cm (0.6-1.1) PWd 1.04 cm (0.6-1.1) EF (Teich) 48.10% EPSs 1.08 cm FS 24.00% EDV (Teich) 84.40 mL ESV (Teich) 43.80 mL LV Diastology E Decel Time 287 (160-240 msec) E/A Ratio 0.6 MED A' 8.90 cm/s LAT A' 8.20 cm/s Aortic Valve AoV Peak Andrew. 177.0 (50-130 cm/s) AI PHT 401.00 ms AO Peak GR. 12.50 mmHg AO Mean GR. 6.00 (<5 mmHg) AO VTI 33.0 (18-25 cm) Mitral Valve MV E Max Andrew. 66.0 (40-130 cm/s) MV A Velocity 108.0 (40-130 cm/s) E/A Ratio 0.62 MV PHT 84.0 ms Pulmonary Valve PV Peak Velocity 82.0 (50-150 cm/s) Tricuspid Valve TR P. Velocity 247.00 cm/s RAP Estimate 10.00 mmHg RVSP 34.50 mmHg Left Ventricle The left ventricle is normal size. The left ventricular systolic function is normal. The left ventricular ejection fraction is within the normal range. There is increased LV wall thickness. There is normal LV segmental wall motion. Transmitral Doppler flow pattern suggests impaired LV relaxation. LVEF is 60%. Right Ventricle The right ventricle is normal size. The right ventricular systolic function is normal. Atria The left atrium size is normal. The right atrium size is normal. There is no Doppler evidence of interatrial shunt. Aortic Valve The aortic valve is mildly thickened. There is no aortic valvular stenosis. Mild aortic regurgitation. Mitral Valve The mitral valve leaflets are mildly thickened. No evidence of mitral valve stenosis. Trace mitral regurgitation. Tricuspid Valve The tricuspid valve leaflets are thin and pliable. Mild tricuspid regurgitation. RVSP is 25-30 mmHg. Pulmonic Valve The pulmonary valve is normal in structure. Trace pulmonic regurgitation. Great Vessels The aortic root is normal in size. The ascending aorta is not well-visualized. IVC is normal in size and collapses >50% with inspiration. Pericardium There is no pericardial effusion. Conclusion Normal biventricular systolic function. Mild AI, mild TR. RVSP is 25-30 mmHg. Electronically signed by : Savannah Garcia MD 10/27/2023 21:38:52
[2023-10-27 02:32] LABS: Reflex Lactic (2 hrs) Add Lactic Reflex
[2023-10-27 03:24] LABS: Lactic Acid Follow up (RFLX 2) 1.6 mmol/L (0.7-2.1)
[2023-10-27 03:25] LABS: Basophils % 0.4 % (0.1-2.0); Chloride 114 mmol/L (98-107); Eosinophils % 0.2 % (0.1-12.0); Hematocrit 30.3 % (37.0-47.0); Lymphocytes % 11.3 % (10-50); Mean Corpuscular HGB Conc 32.5 g/dL (31.8-35.4); Mean Corpuscular Hemoglobin 31.4 pg (27.0-31.2); Mean Corpuscular Volume 96.7 fl (81-99); Mean Platelet Volume 9.3 fl (7.4-10.4); Monocytes # 0.5 K/mm3 (0.1-1.0); Monocytes % 6.3 % (1.7-9.3); Neutrophils % 81.9 % (37.0-80.0); Platelet Count 240 K/mm3 (142-424); Potassium 4.5 mmoL/L (3.5-5.1); Red Blood Count 3.13 M/mm3 (4.20-5.40); Sodium 141 mmol/L (136-145); White Blood Count 8.6 K/mm3 (4.8-10.8)
[2023-10-27 03:27] LABS: Acetone, Serum (Rapid) None Detected (None Detect); Blood Urea Nitrogen 28 mg/dl (7-17); Creatinine Clearance Estimated 23 mL/min (50-200); Estimated Glomerular Filt Rate 29 ml/min (>60)
[2023-10-27 03:28] LABS: Alanine Aminotransferase 12 U/L (12-78); Albumin Level 2.9 g/dl (3.5-5.0); Albumin/Globulin Ratio 1.2 (1.1-1.8); Alkaline Phosphatase 79 U/L (38-126); Anion Gap 11.5 mEq/L (5-15); Aspartate Amino Transferase 19 U/L (14-36); Calcium 8.8 mg/dl (8.4-10.2); Carbon Dioxide 20 mmol/L (22.0-30.0); GFR (African American) 35 ML/MIN (>60); Globulin 2.4 g/dL (1.3-3.2); Glucose 129 mg/dl (74-100); Magnesium 1.6 mg/dl (1.6-2.3); Phosphorous 3.4 mg/dl (2.5-4.5); Total Protein,Serum 5.3 g/dl (6.3-8.2)
[2023-10-27 03:31] LABS: Bilirubin,Total 0.1 mg/dl (0.2-1.3); Hemoglobin 9.9 g/dL (12.2-16.2)
[2023-10-27 03:37] LABS: Troponin I 0.03 ng/ml (0.00-0.034)
[2023-10-27] MEDS: PIPERACILLIN/TAZO 3.375 GM in 0.9 % SODIUM CHLORIDE 50 ML IV ×3 (04:47→20:45)
--- NOTE | 2023-10-27 05:12 | PC.NURSE ---
Ms Marquez, a [facility] resident, was newly admitted this shift for dizziness and CHF; she had a syncopal episode at [employer] yesterday evening during a bowel movement. She is alert and oriented x4. Tremors were noted. Upon assessing her during her admission, her lungs were clear and her bowel sounds were active in all quadrants. On telemetry, she has a BBB. She was placed on a purewick due to urinary incontinence; she stated that she has been incontinent of urine since her accidental kidney injury and removal a while ago. She did not have any swelling in her extremities at this time. Halitosis was also noticed in patient. Patient received 1 dose of vancomycin earlier this shift, and now has zosyn currently infusing. Her med reconciliation was completed this shift. She has not complained of further dizziness, pain, nausea, or any shortness of breath. She has however complained of soreness in her perineal area during her bath last night; her perineum is red and raw. She has not had any other complaints at this time other than wanting to get some rest. She tolerates room air well. Patient claims she uses a cane to ambulate herself; she has not gotten out of bed this shift. Her bed alarm is on and functioning. Call light is within reach.
--- NOTE | 2023-10-27 07:25 | P.CONPHA_ITS ---
Pharmacy Intervention Comments: MEDICATION RECONCILIATION COMPLETED ON PATIENT USING MAR FROM [facility]. -RAJIV LIPSCOMB, CARLOSD
--- NOTE | 2023-10-27 07:25 | HMH.PHAINT1 ---
Pharmacy Intervention Comments: MEDICATION RECONCILIATION COMPLETED ON PATIENT USING MAR FROM [facility]. -RAJIV LIPSCOMB, CARLOSD
--- NOTE | 2023-10-27 08:12 | CA_ITS ---
FINAL REPORT TECHNIQUE: Color Doppler, duplex Doppler and bailey scale sonography of the bilateral neck arterial vasculature was performed. Velocities were measured in the carotid arteries. Stenosis evaluation based on the validated velocity criteria. CLINICAL HISTORY: Syncope prior to hospitalization FINDINGS: The peak systolic velocity of the right common carotid artery is 51 cm/s. The peak systolic velocity of the right internal carotid artery is 76 cm/s and end diastolic velocity 24 cm/s. The ICA/CCA ratio is 1.5. A small amount of plaque is present. The right external carotid artery is patent. The right vertebral artery is patent with antegrade flow. The peak systolic velocity of the left common carotid artery is 45 cm/s. The peak systolic velocity of the left internal carotid artery is 96 cm/s and end diastolic velocity 20 cm/s. The ICA/CCA ratio is 2.5. A small amount of plaque is present. The left external carotid artery is patent.The left vertebral artery is patent with antegrade flow. IMPRESSION: Less than 50% bilateral carotid stenoses. Bilateral patent vertebral arteries with antegrade flow. If indicated, CTA or MRA could further evaluate. Reviewed, Interpreted and Dictated by Hector Arceo III, MD Transcribed by Monae Hong Authenticated and [facility]
[2023-10-27] MEDS: LEVOTHYROXINE 75MCG (0.075MG) TAB 75 MCG PO (08:28)
--- NOTE | 2023-10-27 08:54 | MR_ITS ---
FINAL REPORT CLINICAL HISTORY: SYNCOPE COMPARISON: None FINDINGS: Multiplanar MR imaging of the brain was performed without contrast. There is mild age-appropriate atrophy. There are scattered foci of increased T2 signal in the cerebral white matter that have a nonspecific appearance but likely represent mild chronic ischemic/gliotic changes. There is no evidence of intracranial hemorrhage or mass. No abnormal ventricular dilatation is identified. No abnormal extra-axial fluid collection is seen. No abnormality is seen on the diffusion weighted images. The posterior fossa and brainstem are unremarkable. Normal major vessel vascular flow voids are seen. IMPRESSION: Age-appropriate atrophy and mild chronic ischemic/gliotic changes. No acute intracranial abnormality. Reviewed, Interpreted and Dictated by Hector Arceo III, MD Transcribed by Madsyon Kee Authenticated and [facility]
--- NOTE | 2023-10-27 08:59 | ECG_ITS ---
APPROVED REPORT Exam: Resting ECG HR:62 bpm ECG Measurements Heart Rate 62 AXES [place] 204 P 39 QRSd 142 QRS -19 QT 531 T 209 QTc 535 Conclusion SINUS RHYTHM RIGHT BUNDLE BRANCH BLOCK [120+ ms QRS DURATION, UPRIGHT V1, 40+ ms S IN I/aVL/V4/V5/V6] POSSIBLE LEFT VENTRICULAR HYPERTROPHY [VOLTAGE CRITERIA PLUS LAE OR QRS WIDENING] MARKED T-WAVE ABNORMALITY, CONSIDER ANTEROLATERAL ISCHEMIA [-0.5+ mV T-WAVE IN I/aVL/V3-V6] MODERATE T-WAVE ABNORMALITY, CONSIDER INFERIOR ISCHEMIA [-0.1+ mV T-WAVE IN II/aVF] New twave inversions since prior exam one day ago ABNORMAL ECG UNCONFIRMED REPORT Electronically signed by : Sean Retana MD 10/28/2023 10:35:53
--- NOTE | 2023-10-27 09:12 | EXP.CARD.CON ---
History of Present Illness History of Present Illness Consult date: 10/27/23 Requesting physician: Rosendo Chandler Chief complaint: syncope History of present illness: 83-year-old white female [place] [facility] resident without known CVD who has Parkinson's and mild dementia and presented to the ER by EMS with the assistance of her family after syncopal episode at [facility]. Patient was apparently having ice cream when she felt her bowels moving. She beared down while seated at the table and had brief loss of consciousness. She states this is never happened before. She typically ambulates with a cane around her [place] [facility] with no chest pain shortness of breath or palpitations. ED workup revealed EKG with sinus rhythm and heavy artifact due to tardive dyskinesia. She had elevated lactic acid over 3 and mild leukocytosis but no identified source of infection and patient denies symptoms. Serial Trop normal. ProBNP 4750 which is lower than 5240 this time last year. She had an ECHO at that time showing normal EF mild LVH, mild AI/MR. I spoke with pt's Nephew, Dante on the phone. He was with her yesterday and states she made no comments about abdominal discomfort before the syncopal episode. He states he got up to get a drink and when he turned around she was slumped over and had blue lips and chin. He states typically she is not very active at the [place] [facility] and does have some dementia. States 2 of her sisters on the toilet. [facility] Disclaimer: The information contained in this section may have been updated after the patient was seen, as this information can be updated by other users. Medical History Incontinence in female Unsteady gait Abnormal electrocardiogram [ECG] [EKG] ADAMA (acute kidney injury) Bipolar disorder Hypothyroidism Hypertension Tardive dyskinesia Surgical History History of kidney surgery Family History Other Family history of cancer History of kidney problems Social History Smoking Status: Former smoker how long ago did patient quit smokin years ago alcohol intake: never substance use type: denies use current occupational status: retired Travel in the last 8 weeks: None household members: none housing: house Review of Systems Constitutional Constitutional: Denies fatigue and Denies weakness Eyes Eyes: Denies loss of vision ENT Ears, Nose, Mouth, and Throat: Denies hearing loss and Denies vertigo *Cardiovascular Cardiovascular: Denies chest pain, Denies dyspnea and Reports syncope *Respiratory Respiratory: Denies cough and Denies dyspnea *Gastrointestinal Gastrointestinal: Denies change in stool character, Denies nausea and Denies vomiting *Musculoskeletal Musculoskeletal: Denies muscle weakness Integumentary/Breasts Skin/Breast: Denies changing lesions *Neurologic Neurologic: Denies loss of vision, Reports syncope, Denies vertigo and Denies weakness Endocrine Endocrine: Denies fatigue Exam Data for Last 24 hours Vital signs and Labs for Last 24 Hours: Temp Pulse Resp BP Pulse Ox O2 Del Method 97.7 F 69 19 184/84 H 97 Room Air 10/27/23 07:56 10/27/23 07:56 10/27/23 07:56 10/27/23 07:56 10/27/23 07:56 10/27/23 08:00 Laboratory Results - last 24 hr 10/26/23 21:24: VBG pH 7.31, VBG pCO2 37.5, VBG pO2 43.4 H, VBG HCO3 18.5 L, VBG Total CO2 19.7 L, VBG O2 Saturation 75.1 H, VBG Base Excess -7.7 L, VBG Lactic Acid 3.1 H 10/26/23 21:34: Sodium 142, Potassium 4.6, Chloride 114 H, Carbon Dioxide 17 L, Anion Gap 15.6 H, BUN 26 H, Creatinine 2.00 H, Estimated Creat Clear 19, Estimated GFR 24 L, Est GFR ( Amer) 29 L, Glucose 162 H, Calcium 9.3, Magnesium 1.6, Total Bilirubin 0.5, AST 31, ALT 17, Alkaline Phosphatase 75, Troponin I 0.01, NT-Pro-B Natriuret Pep 4750 H, Total Protein 7.5, Albumin 3.9, Globulin 3.6 H, Albumin/Globulin Ratio 1.1 10/26/23 21:54: WBC 11.4 H, RBC 3.64 L, Hgb 11.5 L, Hct 35.1 L, MCV 96.5, MCH 31.6 H, MCHC 32.8, RDW 14.3, Plt Count 318, MPV 9.4, Neut % (Auto) 82.4 H, Lymph % (Auto) 9.4 L, Archuleta % (Auto) 7.1, Eos % (Auto) 0.8, Baso % (Auto) 0.3, Neut # (Auto) 9.4 H, Lymph # (Auto) 1.1, Archuleta # (Auto) 0.8, Eos # (Auto) 0.1, Baso # (Auto) 0.0, Total Valproic Acid 39.2 L 10/27/23 00:26: Lactate 2.1, Troponin I 0.03 10/27/23 03:10: WBC 8.6, RBC 3.13 L, Hgb 9.9 L D, Hct 30.3 L, MCV 96.7, MCH 31.4 H, MCHC 32.5, RDW 14.0, Plt Count 240, MPV 9.3, Neut % (Auto) 81.9 H, Lymph % (Auto) 11.3, Archuleta % (Auto) 6.3, Eos % (Auto) 0.2, Baso % (Auto) 0.4, Neut # (Auto) 7.0, Lymph # (Auto) 1.0, Archuleta # (Auto) 0.5, Eos # (Auto) 0.0, Baso # (Auto) 0.0, Sodium 141, Potassium 4.5, Chloride 114 H, Carbon Dioxide 20 L, Anion Gap 11.5, BUN 28 H, Creatinine 1.70 H, Estimated Creat Clear 23, Estimated GFR 29 L, Est GFR ( Amer) 35 L D, Glucose 129 H D, Lactate 1.6, Calcium 8.8, Phosphorus 3.4, Magnesium 1.6, Total Bilirubin 0.1 L, AST 19 D, ALT 12 D, Alkaline Phosphatase 79, Troponin I 0.03, Total Protein 5.3 L D, Albumin 2.9 L D, Globulin 2.4, Albumin/Globulin Ratio 1.2, Acetone Level None detected I & O for Last 24 hours: Intake & Output 10/24/23 10/25/23 10/26/23 10/27/23 23:59 23:59 23:59 23:59 Intake Total 118 / 118 Output Total 550 / 550 Balance -432 / -432 Weight 125 lb 116 lb 14.4 oz Constitutional Constitutional: no acute distress and cooperative *Routine HEENT Exam Eye: Present PERRL *Routine Respiratory Exam Respiratory: Present CTA bilaterally; Absent accessory muscle use, wheezes or crackles *Routine Cardiovascular Exam Cardiovascular: Present RRR, Normal S1 and Normal S2; Absent murmur, gallop or rubs *Routine Abdominal Exam Abdominal: Present soft; Absent tenderness *Routine Extremities Exam Extremities: Present pulses intact; Absent cyanosis or edema *Routine Skin Exam Skin: Present intact; Absent erythema or wounds *Routine Neurological Exam Neurological: Present alert and oriented X3 Comments: pleasant but mildly demented/repetitive Routine Psychiatric Exam Psychiatric: Present cooperative Meds Home Medications and Allergies Home Medications Medication Instructions Recorded Confirmed Type atorvastatin 40 mg tablet 40 mg PO HS Cholesterol #90 tabs 09/14/22 10/26/23 Rx levothyroxine 75 mcg tablet 75 mcg PO DAILY hypothyroidism #90 09/14/22 10/26/23 Rx tabs ziprasidone HCl 40 mg capsule 40 mg PO DAILY Depression #90 caps 09/14/22 10/26/23 Rx divalproex 250 mg tablet,delayed 250 mg PO HS 10/27/23 10/27/23 History release latanoprost 0.005 % eye drops 1 drp Eye-Both HS 10/27/23 10/27/23 History ropinirole 0.25 mg tablet 0.25 mg PO HS 10/27/23 10/27/23 History New Prescriptions to Start Prescriptions: Allergies Allergy/AdvReac Type Severity Reaction Status Date / Time Iodine and Iodide Containing Allergy Intermediate Hives Verified 10/26/23 23:47 Produc Assessment and Plan *Assessment and plan (1) Syncope: Status: Acute Category: Medical Code(s): R55 - Syncope and collapse (2) Parkinsonian features: Status: Acute Category: Medical Code(s): R25.9 - Unspecified abnormal involuntary movements (3) Stage 4 chronic kidney disease: Status: Acute Category: Medical Code(s): N18.4 - Chronic kidney disease, stage 4 (severe) (4) Tardive dyskinesia: Status: Chronic Category: Medical Code(s): G24.01 - Drug induced subacute dyskinesia Plan Syncope - history complicated by patient's dementia - appears to be a 1 time episode with no real premonitory symptoms, likely vasovagal but cannot exclude cardiac etiology - head CT - no acute findings - EKG shows SR with anterolat t-wave inversions, unchanged from 05/2022, pt denies angina and has normal serial trop - tele: no arrhythmia, pt denies palps - ProBNP 4k (lower than 5k from 1 year ago when she had largely normal ECHO), repeat ECHO here is pending - pt declined CTA, will check D-Dimer and ECHO but she denies SOA and has no hypoxia or tachycardia - Pt was seated during episode but Parkinson's Dz can affect autonomic nervous system and drop BP, will check orthostatics - pt has hx of urinary incontinence and had mild elevated WBC and Lactic Acid but UA is normal and no fever - she will need 2 week monitor at discharge and a stress test as an oupatient Htn - BP 170s/180s here - add Irbesartan 75mg Parkinson's Dz, Bipolar Disorder, Tardive Dyskinesia - shuffle gait, mild dementia and trembling 10/26 CV summary: pt is stable and asymptomatic, further recommendations pending results of ECHO, Orthostatic vitals, and d-dimer.
--- NOTE | 2023-10-27 09:52 | DIET.NUTRFU ---
Spoke to patient to review food allergies, she is allergic to iodine. She only avoids fish and salt. She is on cardiac diet and made a note not to serve fish. She filled out menu for today.
[2023-10-27 10:04] LABS: D-Dimer 0.66 ug/mL (0.0-0.5)
[2023-10-27] MEDS: IRBESARTAN 75MG TABLET 75 MG PO (10:53)
--- NOTE | 2023-10-27 13:41 | PC.NURSE ---
iv removed 11:00 was out of arm.
--- NOTE | 2023-10-27 13:43 | HMH.OTEV ---
OT Inpatient Evaluation Rehab OT IP Evaluation Start: 10/27/23 10:19 Freq: ONCE Status: Active Protocol: Document 10/27/23 13:35 CLARKEPHILIP (Rec: 10/27/23 13:43 VIRGIL [id number]) Rehab OT IP Assessment Subjective History Patient is 83 years old history of hypertension, hyperlipidemia, CHF, Parkinson 's, bipolar disorder, presenting with near syncope. Patient is a poor historian and majority of history is provided by ER physician Reportedly she was at [facility] eating ice cream just before arrival. Shortly after finishing, felt like she had to have a bowel movement, bear down to try to have a bowel movement. Shortly thereafter, became dizzy and nearly passed out. She remembers the entire episode. Family and bystanders state that she turned blue, but did not lose muscle tone. EMS was contacted, family concern for stroke. On arrival, EMS states that patient's glucose was in the 160s, well- appearing, no cyanosis, but she was diaphoretic. Patient denying any complaints to them . She was brought to the ED for further evaluation. On arrival to the emergency department, patient still without complaints. Denies headache, vision changes, chest pain, shortness of breath, numbness, weakness, tingling anywhere, abdominal pain, dysuria, hematuria, diarrhea, constipation, or any other complaints. She states that she thinks she did soil herself, or at least tried to while she was sitting at [facility]. In ER patient hemodynamically stable, alert, oriented x4, appropriate, GCS 15, moving all extremities spontaneously, pupils equal and reactive to light. Remaining exam unremarkable Independent interpretation of EKG shows No obvious ischemic change. Workup independently interpreted and significant for mild leukocytosis with neutrophilia. Gas nonactionable, but lactic acid is 3.1. Patient has stable CKD with creatinine 2.0. LFTs not normal, BNP is elevated at 4700, this is new for patient. Chest x-ray with no acute cardiopulmonary airspace disease. Discussed CT PE with ER provider and patient states that she has contrast allergy, does not want CT of her chest .. CT angio of the chest to evaluate for pulmonary embolus was considered because patient has newly elevated BNP , syncopal episode and was not obtained. Patient has no acute concerns or complaints at this time. Resident at [facility]. Requires assistance for transfers and ADLs on daily dasis. Uses a RW to ambulate within facility and w/c for long distance. Subjective I can get up. Instructed patient on proper hand and foot placement to complete bed mobility from supine->sit @ EOB->stand with usage of RW requiring Min A x2 . Patient maneuver ~25ft within room with no LOB noted. Assisted patient back to room with needs met at end of session. Objective Patient Orientation Person,Name,Age,Birthday,Year Right Upper Extremity Gross ROM WFL Left Upper Extremity Gross ROM WFL Bed Mobility bed mobility - supine/sit Assist Level Minimal x 2 (25% assist) Transfer Training Sit/Stand/Step Transfer Assist Level Minimal x 2 (25% assist) Rehab OT IP prob,goals,plan Problems Date of Evaluation: 10/27/23 OT IP Problems Bed Mobility,Transfers,Balance ,Self care,Safety Rehab Potential Rehab Potential Good Equipment Needs Assistive Devices Rolling / Wheeled Walker Plan OT intervention Plan Bed Mobility,Transfers,Balance ,Self care,Safety,Therapeutic Exercise OT Plan Frequency Daily Duration LOS Discharge Goals Bed Mobility Ability Assistance x1 Sit to Stand Chair Transfer Ability Minimal x 1 (25% assist) Discharge Plan OT Discharge Plan Recommend patient [facility] medical d/c. Patient to continue skilled OT IP services while here at [facility] to prepare for appropriate d/c. Eval Complexity Eval Charge Codes 86448 - Low Complexity PHYSICIAN CERTIFICATION: I certify the specified therapy services for Olesya Marquez are required, authorized, and reviewed every 30 days.
[2023-10-27 13:52] LABS: POC Glucose,Bedside 131 (70-110)
--- NOTE | 2023-10-27 14:24 | HMH.PTEV ---
Physical Therapy Evaluation Rehab PT IP Evaluation Start: 10/27/23 10:19 Freq: ONCE Status: Active Protocol: Document 10/27/23 14:09 PHOAPARNA (Rec: 10/27/23 14:24 PHORSAM [id number]) Subjective/History History History Patient Olesya Marquez is a 83 year old female who was admitted today after becoming dizzy and passing out at [facility]. When assessed by EMS they stated that her glucose was in the 160s.Her PMH includes but is not limited to hypertension, hyperlipidemia, CHF, Parkinson 's, bipolar disorder, presenting with near syncope. It was noted that the patient is a poor historian and majority of history is provided by the ER physician. At this time patient has no complaints of pain. Subjective Subjective She is able to ambulate with a rolling walker, however she informed PT that she normally uses a cane. She was able to preform bed mobility on her own. Patient was helped back into bed as needed and her call pineda was placed with in reach. Rehab PT IP Eval Objective Appearance Patient Behavior Appropriate,Cooperative Patient Orientation Person,Place,Name,Birthday,Day of Month,Year Speech Pattern Clear,Appropriate,Soft-Spoken Ambulation Patient Able to Ambulate Yes Ambulation Observation IP General Gait Pattern Observation Shuffling Step Ambulation Distance (feet) 25 Ambulation Assistive Device Rolling Walker Ambulation Ability Contact Guard/Hand Hold Balance Ability to Arise Able, uses arms to help Sitting Balance Leans or slides in chair Dynamic Sitting Balance Ability Good Dynamic Standing Balance Ability Good Transfers Bed Transfer Ability Minimal x 1 (25% assist) Sit to Stand Bed Transfer Ability Minimal x 1 (25% assist) Rehab PT IP prob,goals,plan Problems Date of Evaluation: 10/27/23 PT IP Problems Gait,Balance Rehab Potential Rehab Potential Fair Equipment Needs Assistive Devices Rolling / Wheeled Walker Plan PT Intervention Plan Gait,Balance PT Plan Frequency Daily Duration LOS Discharge Goals Bed Transfer Ability Independent Sit to Stand Chair Transfer Ability Independent Ambulation Assistive Device Large Base Quad Cane Ambulation Distance (feet) 50 Discharge Plan PT Discharge Plan At this time the patient is a great candidate for inpatient skilled physical therapy or rehab placement. She would benefit from PT to address the safety concerns and any potential limitations moving forward to help keep her current functional level. Eval Complexity Eval Charge Codes 69523 - High Complexity PHYSICIAN CERTIFICATION: I certify the specified therapy services for Olesya Marquez are required, authorized, and reviewed every 30 days.
--- NOTE | 2023-10-27 15:08 | CARE MANAGER ---
Patient lives at [place], plan is for her to return to [facility] once medically ready for discharge.
--- NOTE | 2023-10-27 16:38 | EXP.EVENT.NO ---
Patient reevaluated later in the morning after a.m. admission. Echocardiogram done today. Cardiology consult completed. Carotid duplex is done. MRI brain done without acute findings. PT OT also completed evaluation today. If patient doing well functionally without abnormalities noted, probably okay to DC patient home with home health if family improves. If family does not have resources to care for patient, patient will likely require disposition to long-term care facility at time of hospital discharge. Patient may be appropriate for hospital discharge within next 48 hours, depending on results of aforementioned testing.
[2023-10-27 16:40] LABS: POC Glucose,Bedside 108 (70-110)
--- NOTE | 2023-10-27 18:03 | PC.NURSE ---
No acute changes noted. Pt is currently sitting up eating dinner. No complaints stated. Call light within reach.
[2023-10-27 20:16] LABS: POC Glucose,Bedside 106 (70-110)
[2023-10-27] MEDS: DIVALPROEX 250MG (Delayed-Release) TABLET 250 MG PO (20:43)
[2023-10-27] MEDS: ATORVASTATIN 40MG TABLET 40 MG PO (20:43)
[2023-10-27] MEDS: LATANOPROST 0.005% OPTH SOLN 2.5ML OP (20:44)
[2023-10-27] MEDS: ZIPRASIDONE 20MG CAPSULE 40 MG PO (20:45)
[2023-10-27] MEDS: ROPINIROLE HCL 0.25 MG TABLET PO (20:45)
[2023-10-28] VITALS: BP 155/77; PULSE 68; PULSE 70; RESP 16; TEMP 36.7; O2SAT 98
[2023-10-28] MEDS: PIPERACILLIN/TAZO 3.375 GM in 0.9 % SODIUM CHLORIDE 50 ML IV ×2 (03:19→09:58)
[2023-10-28 04:00] VITALS: BP 164/54; PULSE 60; PULSE 61; RESP 16; TEMP 36.6; O2SAT 97; BMI 20.9
--- NOTE | 2023-10-28 05:08 | PC.NURSE ---
Patient is alert and oriented and tolerating room air. Patient has slept the majority of the night. No acute changes noted at this time. Call light within reach.
[2023-10-28 06:14] LABS: POC Glucose,Bedside 91 (70-110)
[2023-10-28] MEDS: LEVOTHYROXINE 75MCG (0.075MG) TAB 75 MCG PO (06:18)
[2023-10-28 08:00] VITALS: BP 188/96; PULSE 67; PULSE 70; RESP 17; TEMP 36.4; O2SAT 98
[2023-10-28] MEDS: IRBESARTAN 75MG TABLET 75 MG PO (08:41)
[2023-10-28] MEDS: MAGNESIUM SULFATE IN WATER 2 GM/50 ML PIGGYBACK IV (08:58)
[2023-10-28 11:13] LABS: POC Glucose,Bedside 118 (70-110)
[2023-10-28 12:00] VITALS: BP 170/89; PULSE 75; RESP 18; TEMP 36.8; O2SAT 97
--- NOTE | 2023-10-28 12:02 | P.DS_ITS ---
General Admission date:: 10/26/23 Discharge date: 10/28/23 HPI HPI HPI: Patient is 83 years old history of hypertension, hyperlipidemia, CHF, Parkinson's, bipolar disorder, presenting with near syncope. Patient is a poor historian and majority of history is provided by ER physician Reportedly she was at [facility] eating ice cream just before arrival. Shortly after finishing, felt like she had to have a bowel movement, bear down to try to have a bowel movement. Shortly thereafter, became dizzy and nearly passed out. She remembers the entire episode. Family and bystanders state that she turned blue, but did not lose muscle tone. EMS was contacted, family concern for stroke. On arrival, EMS states that patient's glucose was in the 160s, well- appearing, no cyanosis, but she was diaphoretic. Patient denying any complaints to them. She was brought to the ED for further evaluation. On arrival to the emergency department, patient still without complaints. Denies headache, vision changes, chest pain, shortness of breath, numbness, weakness, tingling anywhere, abdominal pain, dysuria, hematuria, diarrhea, constipation, or any other complaints. She states that she thinks she did soil herself, or at least tried to while she was sitting at [facility] In ER patient hemodynamically stable, alert, oriented x4, appropriate, GCS 15, moving all extremities spontaneously, pupils equal and reactive to light. Remaining exam unremarkable Independent interpretation of EKG shows No obvious ischemic change. Workup independently interpreted and significant for mild leukocytosis with neutrophilia. Gas nonactionable, but lactic acid is 3.1. Patient has stable CKD with creatinine 2.0. LFTs not normal, BNP is elevated at 4700, this is new for patient. Chest x-ray with no acute cardiopulmonary airspace disease. Discussed CT PE with ER provider and patient states that she has contrast allergy, does not want CT of her chest.. CT angio of the chest to evaluate for pulmonary embolus was considered because patient has newly elevated BNP, syncopal episode and was not obtained. Patient has no acute concerns or complaints at this time. Hospital Course Hospital Course Hospital Course: The patient was admitted to the telemetry unit and cardiology was consulted. Imaging, labs and inflammatory markers were assessed and trended. An MRI of the brain identified no stroke and chronic atrophy. Carotid Dopplers identified no stenotic disease. Her echocardiogram identified an ejection fraction of 60%. CT of the head was characterizes no acute disease. Her creatinine returned to baseline at 1.7. Her leukocytoses resolved. Her hemoglobin remained stable. She received IV fluid resuscitation with identified improvement. Ancillary services evaluated the patient. Cardiology recommended a 14-day heart monitor on discharge to follow-up as outpatient for further cardiac testing. With her identified improvement, her care will be transitioned to [facility] for ongoing therapy and evaluations. I have recommended a 1 week follow-up with her PCP to discuss her CKDIV and anemia of chronic disease. We have recommended a nephrology consultation. I spent 35 minutes in [id number] time with the patient and nursing staff ([place]) concerning the discharge process. We discussed the admitting diagnoses and hospital course. We discussed identified improvement and the patient's desire to be discharged/transition care to [facility]. We reviewed inpatient studies and imaging. The patient voiced understanding on the importance of follow-up with her primary care provider and specialist(s). The patient plans to be compliant with the medication regimen prescribed and follow-up appointments. Exam Data for Last 24 hours Vital signs and Labs for Last 24 Hours: Temp Pulse Resp BP Pulse Ox O2 Del Method 97.6 F 67 17 188/96 H 98 Room Air 10/28/23 08:00 10/28/23 08:00 10/28/23 08:00 10/28/23 08:00 10/28/23 08:00 10/28/23 11:00 Laboratory Results - last 24 hr 10/27/23 13:45: POC Glucose 131 H 10/27/23 16:34: POC Glucose 108 10/27/23 20:09: POC Glucose 106 10/28/23 05:41: POC Glucose 91 10/28/23 11:02: POC Glucose 118 H I & O for Last 24 hours: Intake & Output 10/25/23 10/26/23 10/27/23 10/28/23 23:59 23:59 23:59 23:59 Intake Total 538 / 688 420 / 420 Output Total 700 / 1100 400 / 400 Balance -162 / -412 Weight 56.699 kg 53 kg 53.479 kg Microbiology Reports for the Last 24 Hours: Microbiology 10/26/23 23:00 Blood Blood Culture - Preliminary NO GROWTH AFTER 24 HOURS 10/26/23 23:00 Blood Blood Culture - Preliminary NO GROWTH AFTER 24 HOURS Constitutional Constitutional: no acute distress, thin, chronically ill appearing and cooperative *Routine HEENT Exam Head: Present normocephalic ENT: Present mucous membranes moist *Routine Neck Exam Neck: Present normal carotid upstroke and trachea midline; Absent JVD, lymphadenopathy or tenderness *Routine Respiratory Exam Respiratory: Present rhonchi, normal respiratory effort and symmetric chest movement *Routine Cardiovascular Exam Cardiovascular: Present RRR; Absent murmur *Routine Abdominal Exam Abdominal: Present soft; Absent tenderness *Routine Extremities Exam Extremities: Present full ROM and pulses intact; Absent clubbing or edema *Routine Skin Exam Skin: Present warm; Absent rash *Routine Neurological Exam Neurological: Present alert, CN II-XII intact and moving all extremities; Absent sensory deficit or motor deficit Routine Psychiatric Exam Psychiatric: Present cooperative Results Data Completed and Pending Labs on day of discharge: Labs from last 24 hours 10/28/23 10/28/23 10/27/23 11:02 05:41 20:09 POC Glucose 118 H 91 106 10/27/23 10/27/23 16:34 13:45 POC Glucose 108 131 H Preliminary micro results at discharge 10/26/23 23:00 Blood Culture - Preliminary Blood NO GROWTH AFTER 24 HOURS 10/26/23 23:00 Blood Culture - Preliminary Blood NO GROWTH AFTER 24 HOURS DS: Diagnosis Discharge Diagnosis (1) Syncope: Status: Acute Code(s): R55 - Syncope and collapse (2) Parkinsonian features: Status: Acute Code(s): R25.9 - Unspecified abnormal involuntary movements (3) Stage 4 chronic kidney disease: Status: Acute Code(s): N18.4 - Chronic kidney disease, stage 4 (severe) (4) Tardive dyskinesia: Status: Chronic Code(s): G24.01 - Drug induced subacute dyskinesia Meds Home Medications and Allergies Home Medications Medication Instructions Recorded Confirmed Type atorvastatin 40 mg tablet 40 mg PO HS Cholesterol #90 tabs 09/14/22 10/26/23 Rx levothyroxine 75 mcg tablet 75 mcg PO DAILY hypothyroidism #90 09/14/22 10/26/23 Rx tabs ziprasidone HCl 40 mg capsule 40 mg PO DAILY Depression #90 caps 09/14/22 10/26/23 Rx divalproex 250 mg tablet,delayed 250 mg PO HS 10/27/23 10/27/23 History release latanoprost 0.005 % eye drops 1 drp Eye-Both HS 10/27/23 10/27/23 History ropinirole 0.25 mg tablet 0.25 mg PO HS 10/27/23 10/27/23 History irbesartan 75 mg tablet 75 mg PO DAILY #30 tabs 10/28/23 Rx pantoprazole 40 mg tablet,delayed 40 mg PO DAILY #30 tabs 10/28/23 Rx release (Protonix) New Prescriptions to Start Prescriptions: irbesartan Christopher Horngar pantoprazole [Protonix] Aram Horn Allergies Allergy/AdvReac Type Severity Reaction Status Date / Time Iodine and Iodide Containing Allergy Intermediate Hives Verified 10/26/23 23:47 Produc Discharge Plan Disposition Patient Disposition: er SNF Condition: Fair Discharge Order Discharge Orders: Discharge Order (Routine); Ordered 10/28/23 Ordered By: Aram Horn Follow up Plan Follow up with: Mindi Kirk PA [Physician Computational Linguist] - 1 week Baljit Garcia MD [Staff Physician] - 2 weeks (Please have the [facility] for follow up appt. ) Prescriptions/Medication Reconciliation: New irbesartan 75 mg Tablet 75 mg PO DAILY Qty: 30 0RF pantoprazole [Protonix] 40 mg tablet,delayed release (DR/EC) 40 mg PO DAILY Qty: 30 0RF Continued atorvastatin 40 mg tablet 40 mg PO HS Qty: 90 3RF levothyroxine 75 mcg tablet 75 mcg PO DAILY Qty: 90 3RF ziprasidone HCl 40 mg capsule 40 mg PO DAILY Qty: 90 3RF Rx Instructions: give with food (meal/snack) latanoprost 0.005 % drops 1 drp Eye-Both HS divalproex 250 mg tablet,delayed release (DR/EC) 250 mg PO HS ropinirole 0.25 mg tablet 0.25 mg PO HS Other Ambulatory Orders: Holter Monitor Req by Marylou/ (Routine) Location: None Selected Ordered By: Aram Horn Problem Reconciliation Problems Reviewed?: Yes Patient Discharge Instructions ACTIVITY: Up with assistance DIET: cardiac Additional Instructions: Fall Precautions Patient Instructions: DI for Syncope in Adults (Fainting), DI for Heart Failure Exacerbations Providers Primary Care Provider: Sean Retana Admit Provider: Rosendo Chandler Attending Provider: Rosendo Chandler
== END 2023-10-28 15:00 ==
LOC: ER 22:58 → 2ND 23:17
PROVIDERS: Physician Assistant; Admitting Provider Student in an Organized Health Care Education/Training Program; Emergency Provider Emergency Medicine; PCP Internal Medicine Adolescent Medicine; Visit Provider Student in an Organized Health Care Education/Training Program
DX: R55 Syncope and collapse (principal); R32 Unspecified urinary incontinence; R25.9 Unspecified abnormal involuntary movements; E78.5 Hyperlipidemia, unspecified; N18.4 Chronic kidney disease, stage 4 (severe); I50.9 Heart failure, unspecified; G24.01 Drug induced subacute dyskinesia; Z79.899 Other long term (current) drug therapy; Z87.891 Personal history of nicotine dependence; I13.0 Hypertensive heart and chronic kidney disease with heart failure and stage 1 through stage 4 chronic kidney disease, or unspecified chronic kidney disease; G20.A1 Parkinson's disease without dyskinesia, without mention of fluctuations; R26.2 Difficulty in walking, not elsewhere classified
CPT/HCPCS: 36415; 70450; 70551; 71045; 80053; 80164; 82009; 82803; 82962; 83605; 83735; 83880; 84100; 84484; 85025; 85378; 87040; 93005; 93270; 93306; 93880; 97163; 97165; 99285; G0378; J2543; J3475; J7120

== ENCOUNTER 2024-03-07 17:35 | Emergency (ER) | payer MEDICARE, MEDICAID, SELFPAY ==
--- NOTE | 2024-03-07 17:33 | ED_ITS ---
<Statement entered by Kelsea Jurado DO - 03/07/24 18:45> I was consulted by the ANIBAL, and we discussed the complexity of the problems being addressed. I approved the treatment and management plan for this patient's care in the emergency department, thus performing a substantive portion of the medical decision making. Kelsea Jurado DO Discharge Plan Disposition Chief Complaint: Fall Prescriptions Prescriptions: No Action atorvastatin 40 mg tablet 40 mg PO HS Qty: 90 3RF levothyroxine 75 mcg tablet 75 mcg PO DAILY Qty: 90 3RF ziprasidone HCl 40 mg capsule 40 mg PO DAILY Qty: 90 3RF Rx Instructions: give with food (meal/snack) acetaminophen 500 mg capsule 500 mg PO Q6H PRN latanoprost 0.005 % drops 1 drp Eye-Both HS divalproex 250 mg tablet,delayed release (DR/EC) 250 mg PO HS ropinirole 0.25 mg tablet 0.25 mg PO HS irbesartan 75 mg Tablet 75 mg PO DAILY Qty: 30 0RF pantoprazole [Protonix] 40 mg tablet,delayed release (DR/EC) 40 mg PO DAILY Qty: 30 0RF Referrals Follow up/Referrals: Sean Retana MD [Primary Care Provider] - See instructions Activity Restrictions/Add. Instructions Additional Instructions/Restrictions: Follow-up with your PCP for any worsening signs or symptoms. I recommend evaluation by ophthalmology for full ophthalmologic exam although the hematoma to your eye should be self-limiting. Return to the ER for any change in level consciousness intractable headache intractable nausea vomiting. Clinical Impressions Clinical Impression: Fall, Epistaxis, PETE (subconjunctival hemorrhage) Instructions Patient Instructions: DI for Nosebleed, DI for Subconjunctival Hemorrhage Print Language Print Language: Romanian Discharge ED Provider: Kelsea Jurado General Adult HPI General Chief complaint: Fall Stated complaint: Unwitnessed Fall, hit face Time Seen by Provider: 03/07/24 17:46 History of Present Illness HPI narrative: Patient presents for evaluation of a fall. Patient was walking to get her dinn er tray when she tripped and fell. She struck the left side of her face and nose. She suffered a brief epistaxis and has conjunctival hemorrhage lateral left eye. It was a witnessed fall and she did not lose consciousness and believes that she could have stood up but was told not to by the staff. She currently denies any pain headache fever chills hemoptysis hematochezia melena nausea vomiting diarrhea change in perception or level of consciousness. Related Data Home Medications ?Medication ?Instructions ?Recorded ?Confirmed divalproex 250 mg tablet,delayed 250 mg PO HS 10/27/23 11/27/23 release latanoprost 0.005 % eye drops 1 drp Eye-Both HS 10/27/23 11/27/23 ropinirole 0.25 mg tablet 0.25 mg PO HS 10/27/23 11/27/23 acetaminophen 500 mg capsule 500 mg PO Q6H PRN 11/27/23 11/27/23 Previous Rx's ?Medication ?Instructions ?Recorded atorvastatin 40 mg tablet 40 mg PO HS Cholesterol #90 tabs 09/14/22 levothyroxine 75 mcg tablet 75 mcg PO DAILY hypothyroidism #90 09/14/22 tabs ziprasidone HCl 40 mg capsule 40 mg PO DAILY Depression #90 caps 09/14/22 irbesartan 75 mg tablet 75 mg PO DAILY #30 tabs 10/28/23 pantoprazole 40 mg tablet,delayed 40 mg PO DAILY #30 tabs 10/28/23 release (Protonix) Allergies Allergy/AdvReac Type Severity Reaction Status Date / Time Iodine and Iodide Containing Allergy Intermediate Hives Verified 11/27/23 10:19 Produc [facility] Disclaimer: The information contained in this section may have been updated after the patient was seen, as this information can be updated by other users. Medical History (Updated 03/07/24 @ 18:42 by BELL Paez) Abnormal electrocardiogram [ECG] [EKG] Incontinence in female Unsteady gait ADAMA (acute kidney injury) Bipolar disorder Hypothyroidism Hypertension Tardive dyskinesia Surgical History History of kidney surgery Family History Other Family history of cancer History of kidney problems Social History Smoking Status: Never smoker how long ago did patient quit smokin years ago alcohol intake: never substance use type: denies use current occupational status: retired household members: none housing: house Other Medical History Have you received the Flu Vaccine for this season: No Have you received the Pneumonia Vaccine: No ROS Obtained: Yes Systems reviewed as appropriate & no additional complaints except as documented Physical Exam General General appearance: alert and in no apparent distress Respiratory Respiratory exam: Present normal lung sounds bilaterally Cardiovascular Cardiovascular exam: Present regular rate Neurological Exam Neurological exam: Present alert and oriented X3 Skin Skin exam: Present dry Medical Decision Making Medical Records Medical records reviewed: Yes I reviewed the patient's medical records. Screening: Per USPSTF and CDC recommendations, given the prevalence of disease in our region, it is our hospital?s policy to screen for HIV and viral Hepatitis for all patients aged 18 and over and those with ongoing risk factors. Casa Inquiry Pt receiving controlled substance: No Vital Signs: 03/07/24 17:35 03/07/24 18:31 Temperature 97.7 F Temperature Source Oral Pulse Rate 93 H Pulse Rate [Right] 84 Respiratory Rate 18 Blood Pressure 172/77 H Blood Pressure [Right Arm] 187/97 H Blood Pressure Mean [Right Arm] 127 02 Sat by Pulse Oximetry 92 L 92 L Oxygen Delivery Method Room Air Orders (Tests/Meds): ED MEDICATIONS Discontinued Medications Generic Name Dose Route Start Last Admin Trade Name Freq PRN Reason Stop Dose Admin Acetaminophen 1,000 mg 03/07/24 17:35 03/07/24 18:19 Acetaminophen 500mg Tab PO 03/07/24 17:36 1,000 mg ONCE ONE Administration ORDERS Category Date Time Status CT cervical spine wo con Stat Cat Scan 03/07/24 17:[address] facial bones wo con Stat Cat Scan 03/07/24 17:[address] head/brain wo con Stat Cat Scan 03/07/24 17:36 Taken HIV (1&2) Antibody Rapid Stat Lab 03/07/24 17:38 Ordered Hep C Ab with Reflex to RNA Stat Lab 03/07/24 17:38 Ordered Medical Decision Narrative: In summary patient is a 83-year-old female who presents to the emergency department for evaluation of a fall. Patient is hemodynamically stable upon arrival, afebrile. Physical exam is remarkable for blood that is fresh but clotted in the bilateral nares however there is no nasal obstruction or bony deformity noted. There is no tenderness to palpation across the nasal bridge. Patient has a left lateral subconjunctival hemorrhage but has pupils equal round reactive to light and full extraocular movements with no pain. She has no midface tenderness and there is no bony deformity palpable. She has no C-spine tenderness on palpation. Glascow coma score is 15 and she is awake alert and oriented to person place and circumstance.. Differential diagnosis includes contusion versus fracture versus closed head injury etc. Initial workup will be conducted with CT scan of the head neck and C-spine as well as facial bones. Initial interventions include acetaminophen for now. Initial workup reviewed by me and my informal to rotation of her imaging shows no acute fracture or facial injury. Upon repeat evaluation she remains with a Biddle Coma Score of 15 and hemodynamically stable and her nose continues to not bleed.. Given this patient is appropriate for discharge strict return precautions. Critical Care Critical Care Time Critical Care Time: No
[2024-03-07 17:35] VITALS: BP 187/97; PULSE 84; RESP 18; TEMP 36.5; O2SAT 92; BMI 23.2
--- NOTE | 2024-03-07 17:36 | CT_ITS ---
PROCEDURE INFORMATION: Exam: CT Cervical Spine Without Contrast Exam date and time: 03/07/2024 5:57 PM Age: 83 years old Clinical indication: Injury or trauma; Fall; Other: Pain; Additional info: Trauma, critical injury suspected TECHNIQUE: Imaging protocol: Computed tomography of the cervical spine without contrast. Radiation optimization: All CT scans at this facility use at least one of these dose optimization techniques: automated exposure control; mA and/or kV adjustment per patient size (includes targeted exams where dose is matched to clinical indication); or iterative reconstruction. COMPARISON: CT FACIAL BONES WO CON 03/07/2024 5:54 PM FINDINGS: Bones: No evidence of acute fracture or malalignment. Multi-level degenerative disc disease, most prominent from C4-C6. Grade 1 anterolisthesis at C3-C4, also likely degenerative. Facet alignment is well maintained. Lungs: No acute abnormality or suspicious mass lesion in the visualized lung apices. Soft tissues: Unremarkable. IMPRESSION: 1. No evidence of acute osseous abnormality in the cervical spine. 2. Multi-level degenerative changes, as above.
--- NOTE | 2024-03-07 17:36 | CT_ITS ---
PROCEDURE INFORMATION: Exam: CT Maxillofacial Without Contrast Exam date and time: 03/07/2024 5:54 PM Age: 83 years old Clinical indication: Injury or trauma; Fall; Other: Pain; Additional info: Trauma, critical injury suspected TECHNIQUE: Imaging protocol: Computed tomography of the face without contrast. Radiation optimization: All CT scans at this facility use at least one of these dose optimization techniques: automated exposure control; mA and/or kV adjustment per patient size (includes targeted exams where dose is matched to clinical indication); or iterative reconstruction. COMPARISON: CT FACIAL BONES WO CON 03/07/2024 5:54 PM FINDINGS: Paranasal sinuses: No air-fluid levels. Orbital cavities: Bilateral lens replacement incidentally noted. Globes and orbital structures are otherwise unremarkable. Bones: No evidence of acute fracture. Bilateral temporomandibular joints are congruent. Pterygoid plates and lamina papyracea are intact. Soft tissues: Minor left periorbital subcutaneous soft tissue contusion noted. No evidence of soft tissue hematoma. IMPRESSION: No evidence of acute traumatic maxillofacial injury.
--- NOTE | 2024-03-07 17:36 | CT_ITS ---
PROCEDURE INFORMATION: Exam: CT Head Without Contrast Exam date and time: 03/07/2024 5:52 PM Age: 83 years old Clinical indication: Injury or trauma; Fall; Other: Pain; Additional info: Trauma, critical injury suspected TECHNIQUE: Imaging protocol: Computed tomography of the head without contrast. Radiation optimization: All CT scans at this facility use at least one of these dose optimization techniques: automated exposure control; mA and/or kV adjustment per patient size (includes targeted exams where dose is matched to clinical indication); or iterative reconstruction. COMPARISON: MR HEAD/BRAIN WO CON 10/27/2023 10:10 AM FINDINGS: Brain: Global cerebral volume loss. No acute intracranial hemorrhage. No intra- or extra-axial fluid collection. No mass effect or midline shift. Periventricular and subcortical white matter hypodensities compatible with chronic hypertensive microvascular disease. Cerebral ventricles: No hydrocephalus. Paranasal sinuses: No air fluid levels in the visualized paranasal sinuses. Mastoid air cells: Visualized mastoid air cells are clear. Bones: No evidence of acute calvarial or skull base fracture. Soft tissues: Unremarkable. IMPRESSION: 1. No evidence of acute intracranial abnormality. 2. White matter changes compatible with chronic hypertensive microvascular disease. 3. Global cerebral volume loss.
--- NOTE | 2024-03-07 17:40 | PC.NURSE ---
c collar placed as soon as pt arrived to ER
--- NOTE | 2024-03-07 17:53 | PC.NURSE ---
patient gone to CT at this time.
[2024-03-07] MEDS: ACETAMINOPHEN 500MG TAB 1000 MG PO (18:19)
[2024-03-07 18:31] VITALS: BP 172/77; PULSE 93; O2SAT 92
[2024-03-07 18:48] VITALS: BP 172/77; PULSE 94; RESP 18; TEMP 36.7; O2SAT 93
--- NOTE | 2024-03-07 18:55 | PC.NURSE ---
[facility] called for transport back to [facility]
== END 2024-03-07 19:15 ==
PROVIDERS: Emergency Provider Emergency Medicine; PCP Internal Medicine Adolescent Medicine
DX: H11.32 Conjunctival hemorrhage, left eye (principal); R04.0 Epistaxis; W19.XXXA Unspecified fall, initial encounter; Y93.89 Activity, other specified; Y92.099 Unspecified place in other non-institutional residence as the place of occurrence of the external cause
CPT/HCPCS: 70450; 70486; 72125; 99284

== ENCOUNTER 2024-12-11 08:18 | Outpatient (CLI) | payer MEDICARE, MEDICAID, SELFPAY ==
--- OUTSIDE RECORDS SUMMARY | 2024-11-07 05:20 | XMS_ITS | Continuity of Care Document ---
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 Name Role Phone Eddie ROSA MGloria Unavailable Unavailable Allergies, Adverse Reactions, Alerts Substance Reaction Status Criticality iodine Active No Information Medications Medication Instructions Dosage Effective Dates (start - stop) Status Comments divalproex 250 mg tablet,delayed release - Active irbesartan 75 mg tablet - Ac tive pantoprazole 40 mg tablet,delayed release - Active latanoprost 0.005 % eye drops - Active acetaminophen 500 mg tablet - Active lactulose 10 gram/15 mL oral solution - Active sodium chloride 0.9 % intravenous solution - Active albuterol sulfate 2.5 mg/3 mL (0.083 %) solution for nebulization - Active guaifenesin 100 mg/5 mL oral liquid - Active cetirizine 10 mg tablet - Ac tive levothyroxine 88 mcg tablet - Active cefdinir 300 mg capsule - Ac tive levothyroxine 75 mcg tablet - Active divalproex ER 500 mg tablet,extended release 24 hr - Active lisinopril 10 mg-hydrochlorothiazide 12.5 mg tablet - Active ropinirole 0.25 mg tablet - Active atorvastatin 40 mg tablet - Active ziprasidone 40 mg capsule - Active amlodipine 5 mg tablet TAKE ONE TABLET B Y MOUTH EVERY DAY FOR high blood pressure - Active levofloxacin 500 mg tablet TAKE ONE TABLET BY MOUTH ONCE DAILY FOR 7 DAYS -- FINISH ALL MEDICINE -- - Active Problems Condition Type Effective Dates (start - stop) Clini rosa Status Comments No Known Problems Procedures Procedure Date SBSQ NF CARE LOW [facility] 20 ECHO EXAM OF EYE THICKNESS Trim Dystrophic nail(s) DEBRIDE NAIL 1-5 FULL FIELD ERG W/I&R SBSQ NF CARE SF MDM 10 COMPRE OPH EXAM NEW PT 1/> REMOVE IMPACTED EAR WAX Trim Dystrophic nail(s) REMOVE IMPACTED EAR WAX Trim dystrophic nail(s) in length, any n umber Debride mycotic, thick nails 1-5 2024 Trim nail(s) DEBRIDE NAIL 1-5 SBSQ NF CARE LOW [facility] 20 DEBRIDE NAIL 6 OR MORE REMOVE IMPACTED EAR WAX DEBRIDE NAIL 6 OR MORE SBSQ NF CARE SF [facility] 10 NURSING FAC CARE SUBSEQ Advance Directives Directive Yes / No Effective Date File Name No Information Encounters Encounter Description Practice Location Reason(s) For Visit Diagnoses Date Provider Providers Copied on Encounter SBSQ NF CARE LOW [facility] [address] [place] [address], [address], [id number], [place] tel:[phone] [employer] Glaucoma, followup (chief complaint) Primary open-angle glaucoma, bilateral, indeterminate stage 5 [facility] [place] [place] Referring Provider: Sean Retana. [address] [place] [address], [address], [id number], [place] tel:[phone] [employer] Nail dystrophyTinea unguiumOther specified peripheral vascular diseases 5 [place], [place]. [facility] SF MDM 10 [facility], [address] [place] [address] [address], [place], [place], [id number], [place] tel:[phone] [employer] Glaucoma (chief complaint) Primary open-angle glaucoma, bilateral, indeterminate stage 5 [place], [place]. Referring Provider: Sean Retana. [facility], [address] [place] [address], [place], [place], [id number], [place] tel:[phone] [employer] Glaucoma (chief complaint) Primary open-angle glaucoma, bilateral, indeterminate stagePresence of intraocular lens 5 [place], [place]. Referring Provider: Sean Retana. [facility], [address] [place] [address], [place], [place], [id number], [place] tel:[phone] [employer] ear care exam (chief complaint) Impacted cerumen, bilateral 5 [place], [place]. Referring Provider: Sean Retana. [facility], [address] [place] [address], [place], [place], [id number], [place] tel:[phone] [employer] Nail dystrophyOnycho gryphosisOther specified peripheral vascular diseasesOther abnormalities of gait and mobility 5 [place], [place]. [facility], [address] [place] [address], [place], [place], [id number], [place] tel:[phone] [employer] ear care exam, hearing loss (chief complaint) Impacted cerumen, left ear 5 [place], [place]. Referring Provider: Sean Rteana. [facility], [address] [place] [address], [place], [place], [id number], [place] tel:[phone] [employer] Other specified peripheral vascular diseasesNail dystrophyOnycho gryphosisContus ion of right lesser toe(s) without damage to nail, sequela 5 [place]. [facility] NF CARE LOW MDM [address] [place] [address], [address] [place] [address], [place], [place], [id number], tel:[phone] [employer] Nail dystrophyOnycho gryphosisOther specified peripheral vascular diseases 4 [place], [place]. [facility], [address] [place] [address], [place], [place], [id number], [place] tel:[phone] [employer] No Information 4 [place], [place]. [address] [place] [address], [address] [place] [address], [place], [id number], [place] tel:[phone] [employer] Tinea unguiumOther specified peripheral vascular diseases 4 Jah Mitchell [address] [facility], [address], [place], [address], [place]. [address] [place] [address], [address] [place] [address], [place], [place], [id number], [place] tel:[phone] [employer] ear care exam (chief complaint) Impacted cerumen, bilateral 4 [place], [place]. Referring Provider: Sean Retana. [facility] NF CARE SF MDM [address] [place] [address], [address] [place] [address], [place], [place], [id number], [place] tel:[phone] [employer] Tinea unguiumOther specified peripheral vascular diseasesContusi on of right lesser toe(s) without damage to nail, initial encounter 4 Jah Mitchell [address] [facility], [address], [place], [address], . Referring Provider: Sean Retana. NURSING FAC CARE SUBSEQ [address] [place] [address], [address] [place] [address], [place], [place], [id number], [place] tel:[phone] [employer] ear care exam (chief complaint) Unspecified hearing loss, bilateral 3 Ksenia-Hard vania Lorraine. [address], [address], [place], [address], [place]. Referring Provider: Sean Retana. [address] [place] [address], [address], [place], [place], [id number], [place] tel:[phone] [employer] No Information 3 Ksenia-Hard vania [place]raine. [address], [address], [place], [address], [place]. Family History Family Member Type Diagnosis Age At Onset No Information Payers Payer name Insurance type Covered green party ID Authoriza tion(s) Medicare [facility] [id number] Medicaid [facility] [id number] Social History Type Description Quantity Date Captured Comments Sex Female Smoking Status No Information Chief Complaint And Reason For Visit From encounter dated '11/07/2024 09:20'. Glaucoma, followup (chief complaint). Description: The 84 year old patient presents for evaluation of Glaucoma, followup in the right eye and left eye. On latanoprost. Was followed by Dtr. Arellano at [facility]. Denies any eye pain Reason For Referral Reason For Referral No Information Plan Of Treatment Date Type Action Status Appointment Olesya Marquez BOOKED Appointment Olesya Marquez [facility] d Only. BOOKED Patient Education Earwax Blockage: Care I nstructions completed Patient Education Learning About Your Ear s completed History Of Present Illness Encounter Date Complaint History Of Prese nt Illness Glaucoma, followup The 84 year o ld patient presents for evaluation of Glaucoma, followup in the right eye and left eye. On latanoprost. Was followed by Dtr. Arellano at [facility]. Denies any eye pain Glaucoma ERG to help in s taging glaucoma- on latanoprost- baseline Glaucoma Refuses dilation . Sees well she says out of 2 different pair for distance and near. Denies eye pain or itching. Takes latanoprost Functional Status Date Functional Assessmen t No Information Instructions Date Instruction Additional Infor apryl Follow up - Return i n 1-3 months for IOP check. Impression/Plan - IO P higher today at 25. Pt reports getting drops every night. Pachs thick at 577/602, Recheck IOP 2 mos and consider adding another drop prn. ERG was WNL and C/D .35 OU Related to Primary open-angle glaucoma, bilateral, indeterminate stage Discussed using comp ression stockings to assist in localize swelling and venous return, and the snf benefits of using compression stockings. Reinforced the importance of proper adherence to using the enrique hose, and compression stockings. Will continue to monitor. Related to Other specified peripheral vascular diseases Pt refusing, treatme nts including sprays, saavs, and creams a this time will continue to assess and evaluate for treatment as needed. All documented thickened nails were reduced in thickness as needed to prevent pain and other symptoms. Related to Tinea unguium All documented dystr ophic nails were reduced in length as needed to prevent pain and other symptoms. Patient tolerated procedure well. Related to Nail dystrophy Impression/Plan - ER G with normal implicit time and amplitude. Waveform time slightly delayed at 34.3/34.5. Continue latanoprost Related to Primary open-angle glaucoma, bilateral, indeterminate stage Follow up - Return i n 2-4 months for glaucoma check. Return in 1-3 months for ERG PHNR. Impression/Plan - OD clear and centered. OS with slight PCO haze. Recheck 6 mos Related to Presence of intraocular lens Impression/Plan - On latanoprost q hs. IOP 21/18. C/D .35 OU. Request ERG PhNR for baseline. Recheck 3 mos Related to Primary open-angle glaucoma, bilateral, indeterminate stage Performed cerumen re moval as per protocol. AU cleared. Follow up for reevaluation for chronic cerumen impaction. Would recommend audiology referral if patient, family, physician, and/or facility wishes to pursue audiology services. Related to Impacted cerumen, bilateral PT instructed to con tinue use of DME equipment for safety, mobility, and reducing risk of falls/injury. Will continue to monitor. Pt denies recent falls in the past 3 months. Related to Other abnormalities of gait and mobility All documented dystr ophic nails were reduced in length as needed to prevent pain and other symptoms. Related to Nail dystrophy All of the documente d thickened nails (which includes those nails 2 mm or more in thickness, and possible mycotic component to the nails) were debrided in both length and thickness using both a nail nipper and an electric rotary lens edge grinder machine in an atraumatic fashion; this was performed in an attempt to prevent pain and reduce risk of infection. Alcohol applied to the digits afterwards. 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 Reinforced the importance of proper adherence to using the enrique hose, and compression stockings. Will continue to monitor. Related to Other specified peripheral vascular diseases Performed Cerumen Re moval as per protocol, left ear cleared. Follow up in 3-6 months for reevaluation for chronic cerumen impaction. Caitlin RN- notified right otitis externa. Notify PCP for treatment. 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 Reinforced the importance of proper adherence to using the enrique hose, and compression stockings. Will continue to monitor. Related to Other specified peripheral vascular diseases All documented dystr ophic nails were reduced in length as needed to prevent pain and other symptoms. Related to Nail dystrophy All documented thick ened nails were debrided using a rotary tool and nail nipper. Related to Onychogryphosis healing well at this time, no change to treatment or additional intervention at this time. Will continue to monitor. Related to Contusion of right lesser toe(s) without damage to nail, sequela All documented dystr ophic nails were reduced in length as needed to prevent pain and other symptoms. Related to Nail dystrophy All documented thick ened nails were debrided using a rotary tool and nail nipper. 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 Follow up in 2-3 months. Related to Tinea unguium Performed cerumen re moval as per protocol. AU cleared. Follow up for reevaluation for chronic cerumen impaction. Patient declines referral to wrecking car driver at this time. Related to Impacted cerumen, bilateral Toenails 1-5 b/l wer e debrided in length and thickness without incident. Follow up in 2-3 months. Related to Tinea unguium Discussed with the pura conner. No dressing needed at this time. Monitor for infection. Related to Contusion of right lesser toe(s) without damage to nail, initial encounter may refer to audiolo gy if pt, family, and/or facility wish to pursue. Follow up in 6-9 months or sooner if needed. Related to Unspecified hearing loss, bilateral Assessments Type Assessment Date assessment Primary open-angle glaucoma, dione ateral, indeterminate stage impression {[email or web address]_.[email or web address]} Patient Care Teams Name Effective Dates (start - stop) Status Members No Information
--- OUTSIDE RECORDS SUMMARY | 2024-12-11 08:27 | XMS_ITS ---
Author Organization [facility] Care Team Providers Care Clinical Training Specialist Name Role Phone Jessica Hammer (Gisela) Unavailable Unavail able Sean Retana Unavailable Unavailable Allergies and adverse reactions Code CodeSystem Substance Reaction Severity StartDate Concern Status 424081 RXNORM Iodine I 131 Tositumomab Unknown 021 active Care Team Name Role Address Phone Organization Dates Sean Retana PCP [address], [place], [address], [facility] (Office): [facility] 12/29/2022 - 12/09/2024 Jessica (Gisela) [place], [address], [facility] (Office): : [facility] 12/29/2022 - 12/09/2024 Goals Section Goals Description Status Target Date E llen will be free of s/sx of respiratory infections through review date. Active 12/29/2024 Olesya and Family's wishes will be honored throug h next review date Active 12/29/2024 Olesya will be free from s/sx of complications of cardiac problems t hrough next review date. Active 12/29/2024 Olesya will be free from s/sx of hypothyroidism through the review date. Active 12/29/2024 Olesya will be free of falls through the next rev iew date. Active 12/29/2024 Olesya will be free of infect ion, pain or bleeding in the oral cavity by/through next review date. Active 12/29/2024 Olesya will be/remain free of drug related complications, including movement disorder, discomfort, hypotension, constipation/impaction or cognitive/behavioral impairment through review date. Active 12/29/2024 Olesya will have care/needs p rovide for at [facility] through next review date Active 12/29/2024 Olesya will have intact skin, free of redness, blisters or discoloration through next review date. Active 12/29/2024 Olesya will have no indicatio ns of psychosocial issues through review date. H Active 12/29/2024 Olesya will have no s/sx of c omplications r/t fluid deficit through the review date. Active 12/29/2024 Olesya will maintain current level of function in ADLs through next review date. Active 12/29/2024 Olesya will maintain normal b reathing pattern as evidenced by normal respirations, normal skin color, and regular respiratory rate/pattern through the review date. Active 12/29/2024 Olesya will participate in activities of choice t hru next review Active 12/29/2024 Olesya will pass soft, formed stool through the r eview date. Active 12/29/2024 Olesya will remain free from skin breakdown due to incontinence and brief use through the next review date. Active 12/29/2024 Olesya will remain free of fu rther s/sx, discomfort or complications related to Parkinson's disease through review date. Active 12/29/2024 Goal is weight maintenance + /- 4# x 90 days with an average po of 50% or greater. Free from s/s of dehydration. Active 12/30/19 25 Functional Status Code Name Recorded Time Value Entered By 1 step (curb) 12/08/2024 Not assessed mtweedie 12 steps 12/08/2024 Not assessed mtweedie 4 steps 12/08/2024 Not assessed mtweedie Bathing 12/08/2024 Not assessed mtweedie Car transfer 12/08/2024 Not assessed mt[place]ie Chair/kfg-pv-vjstx transfer 12/08/2024 Dependent mtweedie Does the resident use a wheelchair and/or scooter? 12/08/2024 Yes (qualifier value) mtweedie Eating 12/08/2024 Setup or clean-up assistance mtweedie Indicate the type of wheelchair or scooter used 12/08/2024 Independent mtweedie Indicate the type of wheelchair or scooter used 12/08/2024 Manual wheelchair (physical object) mtweedie Lower body dressing 12/08/2024 Dependent mtweedie Lying to sitting on side of bed 12/08/2024 Dependent mtweedie Oral hygiene 12/08/2024 Dependent mtweedie Personal hygiene 12/08/2024 Dependent mtweedie Picking up object 12/08/2024 Not assessed mtweedie Putting on/taking off footwear 12/08/2024 Dependent mtweedie Roll left and right 12/08/2024 Substantial/maximal a ssistance mtweedie Shower/bathe self 12/08/2024 Not assessed mtweedie Sit to lying 12/08/2024 Dependent mtweedie Sit to stand 12/08/2024 Dependent mtweedie Toilet transfer 12/08/2024 Not assessed mt[place]ie Toileting hygiene 12/08/2024 Dependent mtweedie Upper body dressing 12/08/2024 Dependent mtweedie Walk 10 feet 12/08/2024 Dependent mtweedie Walk 150 feet 12/08/2024 Not assessed mt[place]ie Walk 50 feet 12/08/2024 Not assessed mtweedie Walking 10 feet on uneven surfaces 12/08/2024 Not assessed mt[place]ie Wheel 150 feet 12/08/2024 Dependent mtweedie Wheel 50 feet with two turns 12/08/2024 Dependent mtweedie Immunizations Immunization Status Vaccine Details Vaccine Code CodeSystem Date Notes Influenza cancelled Influenza, adjuvanted, inactivated, quadrivalent, injectable, preservative free 205 CVX created date: 01/29/2024 consent date: 01/29/2024 Influenza completed Influenza, adjuvanted, inactivated, quadrivalent, injectable, preservative free lotNumber: [id number] expiry: 09/16/2023 Mfg: sanofi pasteur Given 0.7 ml Left Deltoid intramuscularly 205 CVX created date: 01/16/2023 consent date: 01/16/2023 administer ed date: 01/16/2023 Educated by Ty Roca on 01/16/2023 Pneumovax Dose 1 cancelled Pneumococcal conjugate vaccine 20-valent (PCV20), polysaccharide [id number] conjugate, adjuvant, preservative free 216 CVX created date: 06/15/2022 consent date: 06/15/2022 declines says she will never take risk versus benefit explained. CONTINUES TO REFUSE 12/29/2022 TB 1 Step Mantoux (PPD) completed tuberculin skin test; unspecified formulation lotNumber: [id number] expiry: 08/15/2026 Mfg: sanofi pasteur limited Given 0.1 ml Right Forearm intradermally 98 CVX created date: 01/31/2024 consent date: 01/31/2024 administer ed date: 01/31/2024 TB 1 Step Mantoux (PPD) completed tuberculin skin test; unspecified formulation Mfg: sanofi pasteur Given 0.1 ml Left Forearm intradermally 98 CVX created date: 01/05/2023 consent date: 01/05/2023 administer ed date: 01/05/2023 TB 1 Step Mantoux (PPD) completed tuberculin skin test; unspecified formulation lotNumber: [id number] expiry: 07/01/2022 Mfg: Sandfi-pasteur Given 0.1 ml Right Forearm intradermally 98 CVX created date: 12/25/2020 consent date: 12/25/2020 administer ed date: 12/25/2020 TB 2 Step Mantoux Skin Test completed tuberculin skin test; unspecified formulation lotNumber: [id number] expiry: 09/22/2024 Mfg: Sandfi pasteur Given 0.1 ml Right Forearm intradermally Step 2 of Multi-step with next step required 98 CVX created date: 06/21/2022 consent date: 06/21/2022 administer ed date: 06/21/2022 TB 2 Step Mantoux Skin Test completed tuberculin skin test; unspecified formulation lotNumber: [id number] Mfg: Mantoux Given 0.1 ml Right Forearm intradermally Step 1 of Multi-step with next step required 98 CVX created date: 06/15/2022 consent date: 06/15/2022 administer ed date: 06/15/2022 Educated by Lianne Williamson LPN on 06/15/2022 TB 2 Step Mantoux Skin Test completed tuberculin skin test; unspecified formulation lotNumber: [id number] expiry: 07/01/2022 Mfg: sanofi pasteur limited Given 0.1 ml Left Forearm intradermally Step 1 of Multi-step 98 CVX created date: 01/01/2021 consent date: 01/01/2021 administer ed date: 01/01/2021 read 01/03/21, negative Lucy One Dose completed SARS-COV-2 (COVID-19) vaccine, vector non-replicating, recombinant spike protein-Ad26, preservative free, 0.5 mL Given intramuscularly 212 CVX created date: 06/14/2022 administer ed date: 03/18/2021 Moderna bivalent booster cancelled SARS-COV-2 (COVID-19) vaccine, mRNA, spike protein, LNP, bivalent, preservative free, 50 mcg/0.5 mL or 25 mcg/0.25 mL dose 229 CVX created date: 01/22/2024 consent date: 01/22/2024 Influenza High Dose cancelled Influenza, high-dose, split virus, quadrivalent, injectable, preservative free 197 CVX created date: 01/23/2024 consent date: 01/23/2024 Influenza High Dose cancelled Influenza, high-dose, split virus, quadrivalent, injectable, preservative free 197 CVX created date: 06/15/2022 consent date: 06/15/2022 risk versus benefit explained and resident continues to declined. RSV Vaccine cancelled Respiratory syncytial virus (RSV), vaccine, bivalent, protein subunit RSV prefusion F, diluent reconstituted, 0.5 mL, preservative free 305 CVX created date: 12/15/2023 consent date: 12/15/2023 p.o.a NOTIFIED AND STATES RESIDENT DOES NOT TAKE ANY IMMUNIZATIO NS Pfizer 24-25 cancelled SARS-COV-2 (COVID-19) vaccine, mRNA, spike protein, LNP, preservative free, nahid-sucrose, 30 mcg/0.3 mL dose 309 CVX created date: 06/13/2024 consent date: 06/13/2024 Educated by on 06/18/2024 Medications Section Medication Name Status Code CodeSystem Dose Route Frequency Admin Type Sig Text Start Date End Date Latanoprost Ophthalmic Solution 0.005 % active 636138 RXNORM 1 drop Ophthal alba at bedtime Routine Instil l 1 drop in both eyes at bedtim e for Glauco ma 2023 - rOPINIRole HCl Oral Tablet 0.25 MG active 919779 RXNORM 1 tablet Oral at bedtime Routine Give 1 tablet by mouth at bedtim e relate d to ADIEL SONISM , UNSPEC IFIED (G20.C ) 2023 - Atorvastatin Calcium Oral Tablet 40 MG active 613473 RXNORM 1 tablet Oral at bedtime Routine Give 1 tablet by mouth at bedtim e relate d to MIXED HYPERL IPIDEM IA (E78.2 ) 2023 - Tylenol Extra Strength Oral Tablet 500 MG active 428385 RXNORM 2 tablet Oral as needed PRN Give 2 tablet by mouth every 6 hours as needed for Elevat ed Temper ature 2.5 degree s above baseli ne T 2023 - Tylenol Extra Strength Oral Tablet 500 MG active 646406 RXNORM 2 tablet Oral as needed PRN Give 2 tablet by mouth every 6 hours as needed for Give 2 tablet s every 6 hours as needed for pain 2023 - Remedy Skin Repair Cream 1.5 % active 647663 RXNORM n/a n/a Topical as needed PRN Apply to dry areas topica lly every 6 hours as needed for moistu re 2023 - Levothyroxine Sodium Oral Tablet 75 MCG active 844534 RXNORM 1 tablet Oral one time a day Routine Give 1 tablet by mouth one time a day relate d to HYPOTH YROIDI SM, UNSPEC IFIED (E03.9 ) 2023 - Irbesartan Oral Tablet 75 MG active 226153 RXNORM 1 tablet Oral at bedtime Routine Give 1 tablet by mouth at bedtim e relate d to ESSENT IAL (PRIMA RY) HYPERT ENSION (I10) 2023 - Pantoprazole Sodium Oral Tablet Delayed Release 40 MG active 975931 RXNORM 1 tablet Oral at bedtime Routine Give 1 tablet by mouth at bedtim e for Acid reflux 2023 - Tubersol Intradermal Solution 5 UNIT/0.1ML active 048083 RXNORM 0.1 ml Intrade rmal one time only One Time Only Inject 0.1 ml intrad ermall y one time only for immuni zation for 1 Day 01/31 Depakote Oral Tablet Delayed Release 500 MG active 2540445 RXNORM 500 mg Oral at bedtime Routine Give 500 mg by mouth at bedtim e relate d to BIPOLA R DISORD ER, CURREN T EPISOD E MIXED, MODERA TE (F31.6 2);NROY OR DEPRES SIVE DISORD ER, SINGLE EPISOD E, UNSPEC IFIED (F32.9 ) 2024 - Mental Status Section Date Assessment Total Score Description 09/16/2024 BIMS 14 cognitively int act CAM 0 No delirium ind icated PHQ-9 00 06/17/2024 BIMS 14 cognitively int act CAM 0 No delirium ind icated PHQ-9 00 Problems Problem # Description Date of onset Resolved Date Code CodeSystem Concern Status 1 CHRONIC OBSTRUCTIVE PULMONARY DISEASE, UNSPECIFIED [address] active 2 HISTORY OF FALLING 024 09/16/[address] completed 3 PERSONAL HISTORY OF COVID-19 024 11/06/[address] completed 4 COVID-19 024 10/26/[address] completed 5 OTHER SPECIFIED DISORDERS OF NOSE AND NASAL SINUSES [address] active 6 PANLOBULAR EMPHYSEMA [address] active 7 CHRONIC OBSTRUCTIVE PULMONARY DISEASE, UNSPECIFIED [address] completed 8 PARKINSONISM, UNSPECIFIED [address] active 9 MAJOR DEPRESSIVE DISORDER, SINGLE EPISODE, UNSPECIFIED [address] active 10 RESTLESS LEGS SYNDROME [address] active 11 ACUTE KIDNEY FAILURE, UNSPECIFIED [address] active 12 BIPOLAR DISORDER, CURRENT EPISODE MIXED, MODERATE [address] active 13 CHRONIC KIDNEY DISEASE, STAGE 4 (SEVERE) [address] active 14 ESSENTIAL (PRIMARY) HYPERTENSION [address] active 15 HEART FAILURE, UNSPECIFIED [address] active 16 HYPOTHYROIDISM, UNSPECIFIED [address] active 17 MIXED HYPERLIPIDEMIA [address] active 18 MUSCLE WEAKNESS (GENERALIZED) [address] active 19 NEED FOR ASSISTANCE WITH PERSONAL CARE 023 11/06/[id number] completed 20 OTHER REDUCED MOBILITY [address] active 21 OTHER SYMBOLIC DYSFUNCTIONS [address] active 22 UNSTEADINESS ON FEET [address] active 23 URINARY TRACT INFECTION, SITE NOT SPECIFIED 023 06/28/[address] completed 24 ABNORMAL ELECTROCARDIOGRAM [ECG] [EKG] 021 06/14/2022 R94.31 ICD-10-CM completed 25 ACUTE KIDNEY FAILURE, UNSPECIFIED 021 06/14/[address] completed 26 BIPOLAR DISORDER, CURRENT EPISODE MIXED, MODERATE 021 06/14/[address] completed 27 COVID-19 021 06/14/[address] completed 28 ESSENTIAL (PRIMARY) HYPERTENSION 021 06/14/[address] completed 29 HYPOTHYROIDISM, UNSPECIFIED 021 06/14/[address] completed 30 MIXED HYPERLIPIDEMIA 021 06/14/[address] completed 31 MUSCLE WEAKNESS (GENERALIZED) 021 06/14/[address] completed 32 OTHER DISORDERS OF LUNG 021 06/14/[address] completed 33 UNSTEADINESS ON FEET 021 06/14/[address] completed Reason for Referral No Reasons for Referral Entered Social History Social History Observation Description Start Date End Date Code Code System Current Smoking Status Tobacco smoking consumption unknown 692150768 SNOMED CT Sex Assigned At Female 1940 36624-3 [facility] Gender Identity Vital Signs Code Code System Vitals Name Values and Units Timing Information 9279-1 [facility] Respiratory Rate Value=20.0 Units=/m in 12/08/2024 8462-4 [facility] Blood Pressure-Diastolic Value=74 Un its=mmHg 12/08/2024 8480-6 [facility] Blood Pressure-Systolic Mgmxu=892 Un its=mmHg 12/08/2024 8310-5 [facility] Body Temperature Value=97.5 Units= F 12/08/2024 8867-4 [facility] Heart rate Value=83.0 Units=/min 72949-2 [facility] O2 % BldC Oximetry Value=94.0 Units= % 12/08/2024 77553-1 [facility] Pain Level Value=0.0 12/01/2024 61490-2 [facility] Weight Ngwcd=573.0 Units=Lbs 06/2024 2339-0 [facility] Blood Sugar Ljnsd=207.0 Units=mg/dL 01/29/2023 8302-2 [facility] Height Value=61.0 Units=Inches 12/29/2022
--- OUTSIDE RECORDS SUMMARY | 2024-12-11 08:27 | XMS_ITS | Clinical Summary ---
Author Organization Healthcare Address [address] [place] [address] Care Team Providers Care Micro Lab Analyst Name Role Phone Mindi Kirk Primary Care Provider [phone] Family History Medical History Relation Name Comments Alcohol abuse Father Heart failure Father Alcohol abuse Mother Heart failure Mother Stroke Mother Alcohol abuse Sister Relation Name Status Comments Father Mother Sister Social History Tobacco Use Types Packs/Day Years Used Date Smoking Tobacco: Former Alcohol Use Standard Drinks/Week Comments No 0 (1 standard drink = 0.6 oz pur e alcohol) Comments Unknown Sex and Gender Information Value Date Recorded Sex Assigned at Not on file Legal Sex Female 8:50 PM EDT Gender Identity Not on file Sexual Orientation Not on file Last Filed Vital Signs Vital Sign Reading Time Taken Comments Blood Pressure 112/61 07/12/2017 9:04 AM EDT Pulse 54 07/12/2017 9:04 AM EDT Temperature - - Respiratory Rate 14 07/12/2017 9:04 AM EDT Oxygen Saturation - - Inhaled Oxygen Concentration - - Weight 49.8 kg (109 lb 12.6 oz) 07/12/2017 9:04 AM EDT Height 154.9 cm (5' 1 ) 07/12/2017 9:04 AM EDT Body Mass Index 20.74 07/12/2017 9:04 AM EDT Plan of Treatment Not on file Care Teams Micro Lab Analyst Relationship Specialty Start Date End Date Mindi Kirk PA [address] [place] [address] PCP - General 08/28/20
[2024-12-11 08:45] LABS: Hematocrit 25.7 % (37.0-47.0); Hemoglobin 8.5 g/dL (12.2-16.2); Immature Granulocytes % 0.7 %; Mean Corpuscular HGB Conc 33.1 g/dL (31.8-35.4); Mean Corpuscular Hemoglobin 32.9 pg (27.0-31.2); Mean Corpuscular Volume 99.6 fl (81-99); Nucleated Red Blood Cells % 0 %; Platelet Count 169 K/mm3 (142-424); Red Blood Count 2.58 M/mm3 (4.20-5.40); Red Cell Distribution Width-SD 53.5 fL; White Blood Count 4.4 K/mm3 (4.8-10.8)
[2024-12-11 08:53] LABS: Albumin Level 3.1 g/dl (3.5-5.0); Chloride 115 mmol/L (98-107)
[2024-12-11 08:54] LABS: Potassium 5.1 mmoL/L (3.5-5.1); Sodium 140 mmol/L (136-145)
[2024-12-11 08:56] LABS: Alanine Aminotransferase 7 U/L (12-78); Albumin/Globulin Ratio 1.0 (1.1-1.8); Alkaline Phosphatase 68 U/L (38-126); Anion Gap 11.1 mEq/L (5-15); Aspartate Amino Transferase 24 U/L (14-36); Bilirubin,Total 0.2 mg/dl (0.2-1.3); Blood Urea Nitrogen 33 mg/dl (7-17); Carbon Dioxide 19 mmol/L (22.0-30.0); Creatinine,Serum 2.10 mg/dl (0.52-1.04); Estimated Glomerular Filt Rate 22 ml/min (>60); GFR (African American) 27 ML/MIN (>60); Globulin 3.0 g/dL (1.3-3.2); Total Protein,Serum 6.1 g/dl (6.3-8.2)
[2024-12-11 08:57] LABS: Calcium 8.6 mg/dl (8.4-10.2); Cholesterol 131 mg/dl (140-200); Glucose 88 mg/dl (74-100); HDL Cholesterol 40 mg/dl (40-60); Triglycerides 85 mg/dl (30-150)
[2024-12-11 09:25] LABS: Thyroid Stimulating Hormone 4.17 uIU/mL (0.465-4.68)
[2024-12-11 17:42] LABS: Valproic Acid, (Depakene) 58.2 ug/ml (50-100)
== END 2024-12-11 23:59 | disposition home or self-care (01) ==
PROVIDERS: PCP Family Medicine; Visit Provider Family Medicine
DX: E03.9 Hypothyroidism, unspecified (principal)
CPT/HCPCS: 36415; 80053; 80061; 80164; 84443; 85025

== ENCOUNTER 2025-02-19 09:14 | Outpatient (CLI) | payer MEDICARE, MEDICAID, SELFPAY ==
--- OUTSIDE RECORDS SUMMARY | 2024-07-20 16:30 | XMS_ITS ---
Author Organization [facility] Address [address] [facility] [address] [place] [address] Care Team Providers Care Vp [employer] Name Role Phone Sean Retana Primary Care Provider [phone] Migration, Provider Unavailable Unavailable Allergies Allergen (clinical drug ingredient) Drug/Non Drug Allergy documented on EMR Reaction Allergy Type Onset Date Status Iodine Unknown Drug Allergy Active [facility] Conversion Encounter Medications Medication SIG (Take, Route, Frequency, Duration) Notes Start Date End Date Status Divalproex Sodium 250 MG 1 tab(s) orally once a day Active Levothyroxine Sodium 75 MCG 1 tab(s) ora lly once a day Active rOPINIRole HCl 0.25 MG 1 tab(s) orally o nce a day Active Ziprasidone HCl 40 MG 1 cap(s) orally on ce a day Active Atorvastatin Calcium 40 MG 1 tab(s) oral ly once a day Active Pantoprazole Sodium 40 MG 1 tab(s) orall y once a day Active Latanoprost 0.005 % 1 gtt in each eye on ce a day (in the evening) Active Irbesartan 75 MG 1 tab(s) orally once a day Active Encounters Encounter Location Date Provider Diagnosis [facility] [address] [facility] [address] [place] [address] 07/20/2024 Provider Migration Plan Of Treatment No Information Progress Notes * Olesya MARQUEZ VDOB: 2 (84 yo F)Acc No.[id number]:07/20/2024 Patient: Olesya CISSE V Provider: Yony Chacon :1940 A ge:84 Y S ex:Female Date:07/20/2024 Address:[address] [place] [id number] Pcp:Sean Retana Subjective: * Chief Complaints: * 1 . Multum To Medispan Conversion Encounter. * Medical History: * Medications: T aking Latanoprost 0.005 % Solution 1 gtt in each eye once a day (in the evening) , Taking Pantoprazole Sodium 40 MG Tablet Delayed Release 1 tab(s) orally once a day , Taking Irbesartan 75 MG Tablet 1 tab(s) orally once a day , Taking Atorvastatin Calcium 40 MG Tablet 1 tab(s) orally once a day , Taking rOPINIRole HCl 0.25 MG Tablet 1 tab(s) orally once a day , Taking Ziprasidone HCl 40 MG Capsule 1 cap(s) orally once a day , Taking Divalproex Sodium 250 MG Tablet Delayed Release 1 tab(s) orally once a day , Taking Levothyroxine Sodium 75 MCG Tablet 1 tab(s) orally once a day * Allergies: I odine. Objective: * Vitals: Assessment: Plan: * Treatment: * * Electronic signature of Prov ider Migration on 02/19/2025 at 09:20 AM EST Sign off status: Pending * Provider: Yony Chacon Date: 0 07/20/2024 Generated for Nery renae/Deana/Yessenia on: 1 04/21/2024 09:20 AM EST
--- OUTSIDE RECORDS SUMMARY | 2025-02-19 09:21 | XMS_ITS | Patient Health Record ---
Author Organization [facility] MICHELLE Address [address] [facility] [address] [place] [address] Care Team Providers Care Behavioral Health Case Manager Name Role Phone Sean Retana Primary Care Provider Kelsea Hammer Unavailable [phone] Migration, Provider Unavailable Unavailable Allergies Allergen (clinical drug ingredient) Drug/Non Drug Allergy documented on EMR Reaction Allergy Type Onset Date Status Iodine Unknown Drug Allergy Active Medications Medication SIG (Take, Route, Frequency, Duration) Notes Start Date End Date Status Divalproex Sodium 250 MG 1 tab(s) orally once a day Active Levothyroxine Sodium 75 MCG 1 tab(s) ora lly once a day Active Latanoprost 0.005 % 1 gtt in each eye on ce a day (in the evening) Active Pantoprazole Sodium 40 MG 1 tab(s) orall y once a day Active rOPINIRole HCl 0.25 MG 1 tab(s) orally o nce a day Active Irbesartan 75 MG 1 tab(s) orally once a day Active Atorvastatin Calcium 40 MG 1 tab(s) oral ly once a day Active Problems Problem Type SNOMED Code ICD Code Onset Dates Problem Status W/U Status Risk Notes Problem Manic bipolar I disorder in partial remission (02136451) Bipolar disorder, in partial remission, most recent episode manic (F31.73) Active confirmed Problem Chronic kidney disease due to hypertension (340057329390602) Hypertensive chronic kidney disease with stage 1 through stage 4 chronic kidney disease, or unspecified chronic kidney disease (I12.9) Active confirmed Problem Panlobular emphysema (1175680) Panlobular emphysema (J43.1) Active confirmed Problem Chronic kidney disease stage 4 (979558703) Chronic kidney disease, stage 4 (severe) (N18.4) Active confirmed Problem Essential hypertension (73684006) Essential hypertension (I10) Active confirmed Problem Hyperlipidemia (04883304) Hyperlipemia, idiopathic familial (E78.5) Active confirmed Problem 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) Active confirmed Problem Acquired hypothyroidism (563588443) Acquired hypothyroidism (E03.9) Active confirmed Problem Recurrent falls (624681228) Frequent falls (R29.6) Active confirmed Problem Long-term current use of drug therapy (643968708) Long-term use of high-risk medication (Z79.899) Active confirmed Problem Parkinsonism (disorder) (12770982) Parkinsonism, unspecified Parkinsonism type (G20.C) Active confirmed Vital Signs Heart Rate 68 /min 11/05/2024 Temperature 97.7 degrees Fahrenheit 11/05/2024 Blood pressure diastolic 72 mm Hg 11/05/2024 Height 61 in 11/05/2024 Blood pressure systolic 120 mm Hg 11/05/2024 Weight 106.6 lbs 11/05/2024 BMI 20.14 kg/m2 11/05/2024 Encounters Encounter Location Date Provider Diagnosis [facility] [address] [facility] [address] [place] [address] 07/20/2024 Provider Migration [facility] [address] [place] [address] 02/27/2024 Kelsea Hammer Essential hypertensi on I10 ; Parkinsonism, unspecified Parkinsonism type G20.C ; Hyperlipemia, idiopathic familial E78.5 ; Acquired hypothyroidism E03.9 ; Senile debility R54 ; Bipolar disorder, in partial remission, most recent episode manic F31.73 and Chronic kidney disease, stage 4 (severe) N18.4 [facility] [address] [place] [address] 05/07/2024 Kelsea Hammer Parkinsonism, unspecified Parkinsonism type G20.C ; Medicare annual wellness visit, subsequent Z00.00 ; Essential hypertension I10 ; Hyperlipemia, idiopathic familial E78.5 ; Acquired hypothyroidism E03.9 ; Senile debility R54 ; Bipolar disorder, in partial remission, most recent episode manic F31.73 ; Chronic kidney disease, stage 4 (severe) N18.4 and BMI 21.0-21.9, adult Z68.21 [facility] [address] [place] [phone] 07/02/2024 Kelsea Hammer Parkinsonism, unspecified Parkinsonism type G20.C ; Essential hypertension I10 ; Hyperlipemia, idiopathic familial E78.5 ; Acquired hypothyroidism E03.9 ; Senile debility R54 ; Bipolar disorder, in partial remission, most recent episode manic F31.73 and Chronic kidney disease, stage 4 (severe) N18.4 [facility] [address] [place] [phone] 08/27/2024 Kelsea Hammer Essential hypertensi on I10 ; Parkinsonism, unspecified Parkinsonism type G20.C ; Hyperlipemia, idiopathic familial E78.5 ; Acquired hypothyroidism E03.9 ; Senile debility R54 ; Bipolar disorder, in partial remission, most recent episode manic F31.73 and Chronic kidney disease, stage 4 (severe) N18.4 [facility] [address] [place] [phone] 11/05/2024 Kelsea Hammer Essential hypertensi on I10 ; Parkinsonism, unspecified Parkinsonism type G20.C ; Hyperlipemia, idiopathic familial E78.5 ; Acquired hypothyroidism E03.9 ; Senile debility R54 ; Bipolar disorder, in partial remission, most recent episode manic F31.73 and Chronic kidney disease, stage 4 (severe) N18.4 Assessments Encounter Date Diagnosis (ICD Code) Assessment Notes Treatment Notes Treatment Clinical Notes Section Notes 02/27/2024 Essential hypertension (ICD-10 - I10) tolerating irbesartan 02/27/2024 Parkinsonism, unspecified Parkinsonism type (ICD-10 - G20.C) No changes recommended with respect to ongoing management. Spends much of her time in bed aside from using the BR 05/07/2024 Medicare annual wellness visit, subsequent (ICD-10 - Z00.00) reviewed for age 0105/07/2024 Parkinsonism, unspecified Parkinsonism type (ICD-10 - G20.C) No changes recommended with respect to ongoing management. Spends much of her time in bed aside from using the BR 07/02/2024 Essential hypertension (ICD-10 - I10) tolerating irbesartan 07/02/2024 Parkinsonism, unspecified Parkinsonism type (ICD-10 - G20.C) No changes recommended with respect to ongoing management. Spends much of her time in bed aside from using the BR 08/27/2024 Essential hypertension (ICD-10 - I10) tolerating irbesartan 08/27/2024 Parkinsonism, unspecified Parkinsonism type (ICD-10 - G20.C) No changes recommended with respect to ongoing management. Spends much of her time in bed aside from using the BR 11/05/2024 Essential hypertension (ICD-10 - I10) tolerating irbesartan 11/05/2024 Parkinsonism, unspecified Parkinsonism type (ICD-10 - G20.C) No changes recommended with respect to ongoing management. Spends much of her time in bed aside from using the BR 11/05/2024 Hyperlipemia, idiopathic familial (ICD-10 - E78.5) continue statin therapy, tolerating well 08/27/2024 Hyperlipemia, idiopathic familial (ICD-10 - E78.5) continue statin therapy, tolerating well 07/02/2024 Hyperlipemia, idiopathic familial (ICD-10 - E78.5) continue statin therapy, tolerating well 05/07/2024 Essential hypertension (ICD-10 - I10) tolerating irbesartan 02/27/2024 Hyperlipemia, idiopathic familial (ICD-10 - E78.5) continue statin therapy, tolerating well 05/07/2024 Hyperlipemia, idiopathic familial (ICD-10 - E78.5) continue statin therapy, tolerating well 02/27/2024 Acquired hypothyroidism (ICD-10 - E03.9) continue oral replacement, monitoring labs every 6 months 07/02/2024 Acquired hypothyroidism (ICD-10 - E03.9) continue oral replacement, monitoring labs every 6 months 08/27/2024 Acquired hypothyroidism (ICD-10 - E03.9) continue oral replacement, monitoring labs every 6 months 11/05/2024 Acquired hypothyroidism (ICD-10 - E03.9) continue oral replacement, monitoring labs every 6 months 11/05/2024 Senile debility (ICD-10 - R54) advanced 08/27/2024 Senile debility (ICD-10 - R54) advanced 05/07/2024 Acquired hypothyroidism (ICD-10 - E03.9) continue oral replacement, monitoring labs every 6 months 07/02/2024 Senile debility (ICD-10 - R54) advanced 02/27/2024 Senile debility (ICD-10 - R54) advanced 02/27/2024 Bipolar disorder, in partial remission, most recent episode manic (ICD-10 - F31.73) continue Geodon 05/07/2024 Senile debility (ICD-10 - R54) advanced 07/02/2024 Bipolar disorder, in partial remission, most recent episode manic (ICD-10 - F31.73) continue Geodon, GDR contraindicated due to likelihood of exacerbating depression, impairment in sleep/wake cycles 08/27/2024 Bipolar disorder, in partial remission, most recent episode manic (ICD-10 - F31.73) continue Geodon, GDR just recently at recommendation of psychiatry, monitor 11/05/2024 Bipolar disorder, in partial remission, most recent episode manic (ICD-10 - F31.73) stable, psychiatry following 11/05/2024 Chronic kidney disease, stage 4 (severe) (ICD-10 - N18.4) monitor labs, avoid nephrotoxins, poor candidate for dialysis should disease progress 08/27/2024 Chronic kidney disease, stage 4 (severe) (ICD-10 - N18.4) monitor labs, avoid nephrotoxins, poor candidate for dialysis should disease progress 07/02/2024 Chronic kidney disease, stage 4 (severe) (ICD-10 - N18.4) monitor labs, avoid nephrotoxins, poor candidate for dialysis should disease progress 05/07/2024 Bipolar disorder, in partial remission, most recent episode manic (ICD-10 - F31.73) continue Geodon, GDR contraindicated due to likelihood of exacerbating depression, impairment in sleep/wake cycles 05/07/2024 Chronic kidney disease, stage 4 (severe) (ICD-10 - N18.4) monitor labs, avoid nephrotoxins, poor candidate for dialysis should disease progress 02/27/2024 Chronic kidney disease, stage 4 (severe) (ICD-10 - N18.4) monitor labs, avoid nephrotoxins, poor candidate for dialysis should disease progress 05/07/2024 BMI 21.0-21.9, adult (ICD-10 - Z68.21) stable, 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 Plan Of Treatment Pending Test Test Name Order Date N-CBC 03/14/2007 N-Depakote level 01/07/2008 N-TSH (Thyroid Stimulating Hormone) 06/17 DEXA Hip and Spine - Screening 1 N-Liver Panel 03/14/2007 N-CMP 07/14/2008 N-CMP 03/14/2007 N-Lipid Panel 07/14/2008 Insurance Providers Payer Name Payer Address Payer Phone Subscriber Number Group Number Insured Name Patient Relationship to Insured Coverage Start Date Coverage End Date [place] [address] [place] [place] [phone] [id number] Olesya Marquez Self - patient is the insured MEDICAID EDS [address] [place] [address] [id number] Olesya Marquez Self - patient is the insured [employer] [address] [place] [address] ACL Olesya Marquez Self - patient is the insured Medical (General) History Medical History History ICD Code DNR Hypothyroidism Bipolar disease Hypertension Hyperlilidemia TOBACCO USE DISORDER- quit in 2014 Recurrent falls Secondary parkinsonism CKD stage IV Surgical History Surgery Date(Month/Year) cataract/glaucoma procedure May, 13 Hospitalization History Reason Date(Month/Year) [facility] - Syncope 10/2023 dehydration
--- OUTSIDE RECORDS SUMMARY | 2025-02-19 09:21 | XMS_ITS | Clinical Summary ---
Author Organization Healthcare Address [address] [place] [address] Care Team Providers Care Network Operations Analyst Name Role Phone Mindi Kirk Primary Care Provider [phone] Family History Medical History Relation Name Comments [...] of Treatment Not on file Care Teams Network Operations Analyst Relationship Specialty Start Date End Date Mindi Kirk PA [address] [place] [address] PCP - General 08/28/20
[2025-02-19 09:23] LABS: Hematocrit 28.7 % (37.0-47.0); Hemoglobin 9.9 g/dL (12.2-16.2); Immature Granulocytes % 0.2 %; Mean Corpuscular HGB Conc 34.5 g/dL (31.8-35.4); Mean Corpuscular Hemoglobin 34.1 pg (27.0-31.2); Mean Corpuscular Volume 99.0 fl (81-99); Nucleated Red Blood Cells % 0 %; Platelet Count 179 K/mm3 (142-424); Red Blood Count 2.90 M/mm3 (4.20-5.40); Red Cell Distribution Width-SD 49.1 fL; White Blood Count 4.7 K/mm3 (4.8-10.8)
[2025-02-19 09:56] LABS: Iron 58 ug/dL (37-170)
[2025-02-19 10:07] LABS: Total Iron Binding Capacity 221 ug/dL (265-497)
[2025-02-19 10:34] LABS: Ferritin 97.2 ng/ml (11.1-264)
[2025-02-19 10:50] LABS: Vitamin B12 859 pg/mL (239-931)
[2025-02-19 11:19] LABS: Folate > 20.00 ng/mL
== END 2025-02-19 23:59 | disposition home or self-care (01) ==
PROVIDERS: PCP Family Medicine; Visit Provider Family Medicine
DX: D64.9 Anemia, unspecified (principal)
CPT/HCPCS: 36415; 82607; 82728; 82746; 83540; 83550; 85025